=== PATIENT | male | born 1955 | race Caucasian/White ===

== ENCOUNTER 2021-08-20 15:20 | Emergency (ER) | payer SELFPAY ==
--- NOTE | ~2021-08-20 | CT_ITS ---
EXAMINATION: CT abdomen pelvis wo con EXAM DATE: 08/20/2021 18:01 INDICATION: Abdominal pain, constipation, distention, symptoms 3 weeks. TECHNIQUE: Spiral CT of the abdomen and pelvis was performed without contrast. Axial, coronal and sa gittal images of the abdomen and pelvis were reviewed. The dose-length product (DLP) for this examin ation was 780.38 mGy-cm. The exposure was tailored according to patient size (auto mA exposure contr ol), and iterative reconstruction (ASIR) was used as additional dose reduction technique. There is n o prior study for comparison. FINDINGS: The liver, adrenal glands and pancreas are unremarkable. Splenic granulomas. Gallbladder is unremarkable. No biliary obstruction. There is no nephrolithiasis or hydronephrosis. There is a cy st in each kidney, larger on the right at 2.1 cm. The prostate is unremarkable. The bladder is unre markable. There is no retroperitoneal or pelvic lymphadenopathy. There is mild scattered arteriosc lerotic disease. The appendix is normal. The stomach and small bowel are unremarkable. There is expected amount of c olonic stool. No free intraperitoneal gas. Trace pericardial effusion. Mildly dilated ascending a leo at 4.0 cm. The lung bases are unremarkable. There are no osteoblastic or osteolytic lesions id entified. Mild lumbar levoscoliosis. IMPRESSION: No acute intra-abdominal findings. Reviewed, dictated and finalized at location A. ORT DRIVER
[2021-08-20 15:27] VITALS: BP 148/92; PULSE 70; RESP 16; TEMP 35.9; O2SAT 100
[2021-08-20 15:46] LABS: Basophils Absolute Auto 0.1 K/mm3 (0.0-0.1); Basophils Percent Auto 0.6 % (0.2-1.2); Eosinophils Absolute Auto 0.2 K/mm3 (0-0.3); Eosinophils Percent Auto 2.5 % (0-4.4); Hematocrit 46.9 % (42.0-52.0); Hemoglobin 16.4 g/dL (14.0-18.0); Immature Granulocyte Absolute 0.03 K/mm3 (0.00-0.031); Immature Granulocyte Percent A 0.4 % (0-0.5); Lymphocytes Absolute Auto 2.21 K/mm3 (0.9-3.2); Lymphocytes Percent Auto 26.2 % (18.3-44.2); Mean Corpuscular Hemoglobin 32.4 pg (26-34); Mean Corpuscular Volume 92.7 fl (80-100); Mean Platelet Volume 8.9 fl (7.4-10.4); Monocytes Absolute Auto 0.8 K/mm3 (0.1-0.6); Monocytes Percent Auto 9.4 % (2.6-8.5); Neutrophils Absolute Auto 5.2 K/mm3 (1.3-6.7); Neutrophils Percent Auto 60.9 % (45.5-73.1); Platelet Count Result 230 k/mm3 (150-375); Red Blood Count 5.06 M/mm3 (4.6-6.20); Red Cell Distribution Width 12.3 % (11.5-14.5); White Blood Count 8.4 K/mm3 (4.5-10.0)
[2021-08-20 16:01] LABS: Alanine Aminotransferase 15 U/L (4-50); Albumin Level 4.7 g/dL (3.5-5.1); Alkaline Phosphatase 60 U/L (38-126); Anion Gap 9 mmol/L (8-16); Aspartate Amino Transferase 22 U/L (17-59); Bilirubin,Total 0.6 mg/dL (0.2-1.3); Blood Urea Nitrogen 12 mg/dL (9-20); Calcium 9.9 mg/dL (8.4-10.2); Carbon Dioxide 27 mmol/L (22-30); Chloride 103 mmol/L (98-107); Estimated CRCL calculation 73 ml/min; Estimated Glomerular Filt Rate > 60; Glucose 91 mg/dL (65-110); Lipase 84 U/L (23-300); Potassium 3.8 mmol/L (3.4-5.0); Sodium 139 mmol/L (137-145)
--- NOTE | 2021-08-20 17:50 | ED.GENADULT ---
HPI - General Adult General Chief complaint: Abdominal Pain Stated complaint: constipation Time Seen by Provider: 08/20/21 17:43 Source: RN notes reviewed History of Present Illness HPI narrative: Patient presents emergency department from home for abdominal pain. Patient states for the past 3 weeks has been having increasing abdominal cramping he states that he has not had a bowel movement in the past 2 weeks he states that he is full and blocked he states that the symptoms are worse when he lays down flat he denies any fever chills chest pain shortness of breath nausea or vomiting or any other symptoms he states that belly pain at times described as cramping Related Data Allergies Allergy/AdvReac Type Severity Reaction Status Date / Time No Known Allergies Allergy Verified 08/20/21 18:33 Review of Systems Review of Systems: Gen.: Denies fevers or chills ENT: Denies congestion Respiratory: Denies shortness of breath or cough CV: Denies chest pain or palpitations GI: See HPI denies burning, urgency, frequency or hematuria Musculoskeletal: Denies back pain or muscle pain Neuro: Denies numbness, tingling, weakness or focal weakness Skin: Denies rash Except as documented, all other systems reviewed and negative [facility] Past Medical History Medical History (Updated 08/20/21 @ 19:08 by Ry Lu DO) Diabetes mellitus Social History Social History (Updated 08/20/21 @ 17:51 by Ry Lu DO) Smoking status: Never smoker Exam Narrative: APPEARANCE: No acute distress, nontoxic, resting in bed HEENT: Normocephalic, atraumatic, OMM RESPIRATORY: No respiratory distress, clear to auscultation bilaterally with no rhonchi wheezing or rales CARDIOVASCULAR: RRR s murmur ABDOMINAL: Soft nondistended tender palpation right lower quadrant left lower quadrant no tenderness right upper quadrant left upper quadrant no rebound or guarding MUSCULOSKELETAl: Moves all extremities. No clubbing, cyanosis or edema. NEURO: Awake and alert. Following commands, speech normal, no focal deficits SKIN:: Warm, dry. Normal Color PSYCHIATRIC: Normal affect/mood Course Course Emergency Course: Patient states that they are feeling much better at this time. States abdominal pain has resolved. Repeat abdominal exam shows the patient's abdomen to be soft and nontender. Discussed with patient results of workup and diagnosis. Discussed need for follow-up with primary care physician, reasons to return to the emergency department in proper use of medication. Patient understands and agrees to current treatment plan discussed with patient will refer to GI for further work-up of feeling of being full and early satiety Vital Signs Vital signs: Vital Signs Temperature 96.7 F L 08/20/21 15:27 Pulse Rate 70 08/20/21 15:27 Respiratory Rate 16 08/20/21 15:27 Blood Pressure 148/92 H 08/20/21 15:27 Pulse Oximetry 100 08/20/21 15:27 Temperature 96.7 F L 08/20/21 15:27 Pulse Rate 63 08/20/21 18:26 Respiratory Rate 19 08/20/21 18:26 Blood Pressure 144/93 H 08/20/21 18:26 Pulse Oximetry 99 08/20/21 18:26 Medical Decision Making MDM Narrative Medical decision making narrative: Patient's abdomen is soft without significant pain or signs of surgical abdomen on serial exams. Lab and x-ray evaluations are reviewed and patient is felt to be a reasonable candidate for outpatient management. Patient was instructed as to limitations of x-ray and laboratory evaluation and encouraged to return to ED or primary physician for repeat exam in 12 hours if continued or worsening pain Vital Signs Vital Signs: Vital Signs Temperature 96.7 F L 08/20/21 15:27 Pulse Rate 70 08/20/21 15:27 Respiratory Rate 16 08/20/21 15:27 Blood Pressure 148/92 H 08/20/21 15:27 Pulse Oximetry 100 08/20/21 15:27 Temperature 96.7 F L 08/20/21 15:27 Pulse Rate 63 08/20/21 18:26 Respiratory Rate 19 08/20/21 18:26 Blood Pressure 14
[2021-08-20 17:53] VITALS: PULSE 61; RESP 25; O2SAT 100
[2021-08-20 17:54] VITALS: BP 153/83; PULSE 64; RESP 17; O2SAT 100
[2021-08-20 17:55] VITALS: BP 153/83; PULSE 62; RESP 17; O2SAT 100
--- NOTE | 2021-08-20 18:02 | PC.NURSE ---
Pt off floor in radiology
[2021-08-20 18:26] VITALS: BP 144/93; PULSE 63; RESP 19; O2SAT 99
[2021-08-20 18:48] LABS: Add Urine Microscopic? YES; Appearance Urine Cloudy (Clear); Bilirubin Urine Negative (Negative); Blood Urine Negative (Negative); Color Urine Yellow (Yellow); Glucose Urine UA Negative (Negative); Ketones Urine Negative (Negative); Leukocyte Esterase Ur Negative LEU/UL (Negative); Mucus Urine Rare /lpf; Nitrate Urine Negative (Negative); Protein Urine Negative (Negative); RBC Urine 0-2 /hpf (0-2); Specific Grav Ur 1.008 (1.001-1.035); Urobilinogen Urine Negative mg/dL (<2.0); WBC Urine 0-3 /hpf
[2021-08-20 20:06] VITALS: RESP 18
== END 2021-08-20 20:00 | disposition home or self-care (01) ==
PROVIDERS: Emergency Medicine; Emergency Provider Emergency Medicine; PCP Nurse Practitioner Adult Health
DX: R10.9 Unspecified abdominal pain (principal); E11.9 Type 2 diabetes mellitus without complications
CPT/HCPCS: 36415; 74176; 80053; 81001; 83690; 85025; 99284

== ENCOUNTER → 2021-11-30 01:23 | Outpatient (CLI) | payer SELFPAY ==
[2021-11-30 11:52] LABS: SARS-CoV-2 RNA PCR Negative
== END ==
PROVIDERS: Internal Medicine Gastroenterology; PCP Nurse Practitioner Adult Health; Visit Provider Internal Medicine Medical Oncology
DX: Z01.812 Encounter for preprocedural laboratory examination (principal); Z20.822 Contact with and (suspected) exposure to COVID-19
CPT/HCPCS: C9803; U0003; U0005

== ENCOUNTER 2021-12-03 00:20 | Day surgery (SDC) | payer SELFPAY ==
[2021-11-18 14:30] VITALS: BMI 22.9
[2021-12-03 08:12] VITALS: BP 132/75; PULSE 53; RESP 18; TEMP 36.2; O2SAT 99; BMI 22.6
[2021-12-03] MEDS: LACTATED RINGERS 1,000 ML 150 ML IV CONT (08:21)
--- NOTE | 2021-12-03 08:27 | WPDANESEPPF ---
Anes - Initial Pre Proc Eval Procedure: Operation Date: 12/03/21 10:15 Proposed Procedures p Esophagogastroduodenoscopy - Albin Waller MD Date/Time: 12/03/21 08:27 Surgeon: Albin Waller MD Pre Op Diagnosis: Wt Loss, Anrexia Patient Data Age: 66 Gender: M Height: 1.85 m Weight: 77.9 kg Last Vital Signs Temp 36.2 C L 12/03/21 08:12 Pulse 53 L 12/03/21 08:12 Resp 18 12/03/21 08:12 BP 132/75 12/03/21 08:12 Pulse Ox 99 12/03/21 08:12 Allergies Allergy/AdvReac Type Severity Reaction Status Date / Time No Known Allergies Allergy Verified 12/03/21 08:10 Home Medications Medication Instructions Recorded Confirmed Type escitalopram oxalate 5 mg tablet 5 mg PO DAILY 10/14/21 11/18/21 History lisinopril 5 mg tablet 5 mg PO DAILY 10/14/21 11/18/21 History simvastatin 40 mg tablet 40 mg PO DAILY 10/14/21 11/18/21 History oftvtybg-zdk-bomxz-vit K-lycop 1 tablet PO DAILY 11/18/21 11/18/21 History [One-A-Day Men's 50 Plus] omega-3 fatty acids [Fish Oil] 1 cap PO DAILY 11/18/21 11/18/21 History Patient hx anesthesia problems: none Family hx anesthesia problems: none Results Review: All pre-operative results and documents have been reviewed as part of the pre-operative evaluation. [facility] Past Medical History Medical History (Updated 12/03/21 @ 08:28 by Fortunato Nava MD) Anorexia Anxiety Diabetes mellitus Fullness after eating Hyperlipidemia Hypertension Weight loss Social History Social History Smoking status: Former smoker Alcohol intake: former Substance use: never Substance use type: does not use Living arrangements: alone Spiritual care concerns: No Anes - Eval Final PreProcedure Day of Procedure 12/03/21 08:27 Patient weight: normal Heart: regular rate and rhythm Lungs: clear to auscultation Airway: Mallampati scale class II Neurological: alert and oriented Last oral intake: >/= 8 hours ASA classification: III Emergent: no Anesthetic plan: proceed Anesthesia type and monitoring: general GIVS and standard monitoring Results Review: All pre-operative results and documents have been reviewed as part of the pre-operative evaluation. Informed Consent: The patient's anesthetic plan and its attendant risks and benefits were discussed with the patient/family/POA. Questions were solicited and answers provided to the satisfaction of the patient/family/POA.
--- NOTE | 2021-12-03 08:57 | PM.HPGS ---
History of Present Illness History of Present Illness Consent: Risks, benefits, and alternatives have been discussed and questions answered. Patient agrees to proceed with procedure. Chief complaint: Wt Loss, Anrexia Narrative: Bowen Davila is a 66 year old male with weight loss, dysphagia and upper abdominal discomfort, never had EGD. Had colonoscopy about 3 years ago. Review of Systems Constitutional: Constitutional: Denies headache(s) and Reports weight loss Eyes: Eyes: Denies blurry vision ENT: Reports Normal hearing present, Denies headache(s) and Denies neck pain Cardiovascular: Cardiovascular: Denies chest pain and Denies dyspnea Respiratory: Respiratory: Denies dyspnea Gastrointestinal: Gastrointestinal: Reports no additional gastrointestinal complaints Genitourinary: Genitourinary: Denies dysuria Musculoskeletal: Musculoskeletal: Denies neck pain Integumentary/Breasts: Skin/Breast: Denies dry skin Neurologic: Reports Normal hearing present, Denies headache(s) and Denies weakness Psychiatric: Psychiatric: Denies anxiety Endocrine: Endocrine: Denies change in body appearance Hematologic/Lymphatic: Hematologic/Lymphatic: Denies easy bleeding Allergic/Immunologic: Allergic/Immunologic: Denies urticaria PMFSH Past Medical History Medical History (Updated 12/03/21 @ 08:58 by Albin Waller MD) Anorexia Anxiety Diabetes mellitus Dysphagia Fullness after eating Hyperlipidemia Hypertension Weight loss Social History Social History Smoking status: Former smoker Alcohol intake: former Substance use: never Substance use type: does not use Living arrangements: alone Spiritual care concerns: No Meds Home Medications and Allergies Home Medications Medication Instructions Recorded Confirmed Type escitalopram oxalate 5 mg tablet 5 mg PO DAILY 10/14/21 11/18/21 History lisinopril 5 mg tablet 5 mg PO DAILY 10/14/21 11/18/21 History simvastatin 40 mg tablet 40 mg PO DAILY 10/14/21 11/18/21 History gvdlgjpc-dsj-omfhw-vit K-lycop 1 tablet PO DAILY 11/18/21 11/18/21 History [One-A-Day Men's 50 Plus] omega-3 fatty acids [Fish Oil] 1 cap PO DAILY 11/18/21 11/18/21 History Allergies Allergy/AdvReac Type Severity Reaction Status Date / Time No Known Allergies Allergy Verified 12/03/21 08:10 Vital Signs Vital Signs - 24 hr 12/03/21 08:12 Temperature 97.2 F L Pulse Rate 53 L Respiratory Rate 18 Blood Pressure 132/75 Pulse Oximetry 99 Exam Const: General: comfortable and no acute distress HENMT: General nose exam: Normal nares present Eyes: General: appearance normal, both eyes and all related structures Neck: Neck: no JVD Resp: Auscultation: clear to auscultation bilaterally Cardio: Rate: regular rate Rhythm: regular rhythm GI: Inspection: non-distended GI Palp: Yes Soft to palpation Skin: General skin exam: normal color Neuro: General: gait normal Speech: normal speech Extrem: General: normal to inspection Psych: Mental Status: mental status grossly normal Assessment and Plan Assessment and plan (1) Dysphagia: Code(s): R13.10 - Dysphagia, unspecified Status: Acute Assessment and Plan: egd with bx, will check for esophagitis, stricture, malignancy, etc (2) Weight loss: Code(s): R63.4 - Abnormal weight loss Status: Acute (3) Anorexia: Code(s): R63.0 - Anorexia Status: Acute (4) Diabetes mellitus: Code(s): E11.9 - Type 2 diabetes mellitus without complications Status: Acute
[2021-12-03 09:13] VITALS: BP 109/61; PULSE 59; RESP 20; O2SAT 99
[2021-12-03 09:23] VITALS: BP 105/51; PULSE 47; RESP 20; O2SAT 99
[2021-12-03 09:33] VITALS: BP 100/69; PULSE 52; RESP 25; O2SAT 99
== END 2021-12-03 09:44 | disposition home or self-care (01) ==
PROVIDERS: PCP Nurse Practitioner Adult Health; Visit Provider Internal Medicine Gastroenterology
PROC: 0DJ08ZZ Inspection of Upper Intestinal Tract, Via Natural or Artificial Opening Endoscopic (ICD-10-PCS; CPT 43235; principal; 2021-12-03 10:15)
DX: R13.19 Other dysphagia (principal); R63.4 Abnormal weight loss; K21.00 Gastro-esophageal reflux disease with esophagitis, without bleeding; K29.50 Unspecified chronic gastritis without bleeding; R10.11 Right upper quadrant pain; E78.5 Hyperlipidemia, unspecified; I10 Essential (primary) hypertension; Z87.891 Personal history of nicotine dependence; R63.0 Anorexia
CPT/HCPCS: 43239; 87081; 88305; J2001; J2704; J7120

== ENCOUNTER 2022-06-07 07:02 | Outpatient (CLI) | payer SELFPAY ==
--- NOTE | ~2022-06-07 | NM_ITS ---
EXAM: NM gastric emptying study DATE: 06/07/2022 11:50 INDICATION: Abdominal bloating. TECHNIQUE: A gastric emptying study was performed using the methodology of Arya MCBRIDE, et al. J Nucl Med 2007; 48:568-572. The patient was given a meal consisting of 2 scrambled eggs labeled with 1.059 mCi Tc-99m sulfur colloid, 2 slices of toast, two packages of jam, and approximately 120 mL of water . Simultaneous anterior and posterior 1-min images of the abdomen were obtained with the patient supi ne at multiple time points over a total period of 4 hours. The geometric mean of anterior and posteri or views was determined, and the percentage retention was calculated for each time point. COMPARISON: CT abdomen and pelvis 08/20/2021 FINDINGS: Gastric retention of the radiotracer-labeled meal was 42%, 13%, and 9% at the 1-hour, 2-ho ur, and 4-hour time points, respectively. With this technique, apparent rapid gastric emptying is sug gested by <30% gastric retention at 1 hour. Delayed gastric emptying is defined by gastric retention of >90% at 1 hour, >60% retention at 2 hours, or >10% retention at 4 hours. IMPRESSION: 1. Normal gastric emptying. Reviewed, dictated and finalized at location A. IMPRESSION: 1. Normal gastric emptying.
== END 2022-06-07 07:03 | disposition home or self-care (01) ==
PROVIDERS: PCP Nurse Practitioner Adult Health; Visit Provider Internal Medicine Gastroenterology
DX: R14.0 Abdominal distension (gaseous) (principal)
CPT/HCPCS: 78264; A9541

== ENCOUNTER 2022-08-16 12:23 | Inpatient (IN) | payer MEDICARE, SELFPAY ==
[2022-08-16] VITALS (31 sets, daily range): BP systolic 108–127; BP diastolic 61–95; PULSE 68–93; RESP 12–27; TEMP 36.8–37.5; O2SAT 91–100; BMI 25.0
--- NOTE | ~2022-08-16 | CT_ITS ---
EXAMINATION: CT abdomen pelvis w con DATE: 08/16/2022 16:23 INDICATION: Right upper quadrant abdominal pain, nausea and vomiting TECHNIQUE: Computed tomography (CT) of the abdomen and pelvis was performed with 100 CC Omnipaque 350 intravenous contrast. Automated exposure control and iterative reconstruction technique were employe d. Exam dose: 598.62 mGy-cm total exam DLP. COMPARISON: 08/20/2021 CT abdomen pelvis FINDINGS: There is bibasilar atelectasis. Cardiomegaly. No pericardial or pleural effusion. Small sliding hiatal hernia. There is prominent pericholecystic fat stranding and some pericholecystic fluid. There is gallbladder wall thickening. Findings are consistent with acute cholecystitis. Normal caliber of the bile ducts and pancreatic duct. No hepatic, splenic, pancreatic, and adrenal space-occupying mass lesion. Multiple calcified splenic granulomas. Occasional bilateral renal cysts measuring up to 2.3 cm on the right and 1.8 cm on the left. No urinary tract calculus or hydroureteronephrosis. The urinary bladder is unremarkable. There is mod erate prostate enlargement and multiple prostate calcifications. Normal caliber of the abdominal aorta and iliac arteries. No intraperitoneal or retroperitoneal or pe lvic mass lesion or adenopathy or ascites. As a prominent amount of fecal material in the rectosigmoid area. There is a prominent inflammatory c hange in the region of the hepatic flexure the colon associated with the acute cholecystitis. No fawn l obstruction. Probable appendectomy. No intraperitoneal free air. Small fat-containing umbilical hernia. Including skeletal structures are unremarkable; no suspicious osteolytic or osteoblastic lesions. Mod erate degenerative changes of the thoracic and lumbar spine. IMPRESSION: Acute cholecystitis with very prominent pericholecystic inflammatory change and some per icholecystic fluid, some inflammatory change affecting the adjacent hepatic flexure of the colon Bilateral renal cysts Telephoned the report on 08/16/2022 at 1634 hours to emergency room physician Dr. Hilton. Reviewed, dictated and finalized at Location A. Reviewed, dictated and finalized at location A. ISTICAL METHODS TEACHER IMPRESSION: Acute cholecystitis with very prominent pericholecystic inflammato ry change and some pericholecystic fluid, some inflammatory change affecting th e adjacent hepatic flexure of the colon Bilateral renal cysts Telephoned the report on 08/16/2022 at 1634 hours to emergency room physicia n Dr. Hilton.
--- NOTE | ~2022-08-16 | XR_ITS ---
EXAMINATION: XR chest 2V DATE: 08/17/2022 12:04 INDICATION: Leukocytosis TECHNIQUE: PA and lateral views of the chest are obtained. COMPARISON: None available FINDINGS: There are small pleural effusions. There are minimal airspace opacities of the lung bases. Cardiomegaly is noted. There is no pneumothorax. There is moderate thoracic spondylosis. IMPRESSION: 1. Small pleural effusions. 2. Minimal bibasilar airspace opacities, consistent with atelectasis versus pneumonia. Reviewed, dictated and finalized at location B. HYSICAL PROSPECTOR IMPRESSION: 1. Small pleural effusions. 2. Minimal bibasilar airspace opacities, consistent with atelectasis versus pne umonia.
--- NOTE | ~2022-08-16 | MR_ITS ---
EXAMINATION: MR MRCP wo/w con/w 3D wo ind DATE: 08/17/2022 11:57 INDICATION: Rising bilirubin with gallbladder inflammation TECHNIQUE: Magnetic resonance imaging (MRI) of the abdomen was performed without and with intravenous contrast. Sequences included coronal T2-weighted SS-FSE ARC, coronal T2-weighted FS SS-FSE, coronal T2-weighted 2D FS FIESTA, Water:Coronal LAVA-Flex, sagittal T2-weighted SS-FSE ARC, axial SSFSE ARC, axial 3D DualEcho, axial DWI B=600, axial T1-weighted LAVA, FAT:Coronal LAVA-Flex, and coronal in and opposed phase LAVA-Flex. Thick-slab T2-weighted FRFSE-XL images were obtained for magnetic resonance cholangiopancreatography (MRCP). Maximum intensity projection 3-D reconstructions of the volumetric data were created by the technologist. Postcontrast sequences included a time course of axial T1-weig hted LAVA, FAT:Coronal LAVA-Flex, coronal in and opposed phase LAVA-Flex, and Water:Coronal LAVA-Flex . COMPARISON: CT from yesterday CONTRAST: Multihance, 17 cc FINDINGS: ABDOMEN MRI: There are small pleural effusions with associated bibasilar atelectasis. Cardiomegaly is noted. The liver, spleen, pancreas, and adrenal glands are normal. The gallbladder is distended. The re appear to be sludge and stones in the gallbladder. There is gallbladder wall thickening with a mod erate amount of pericholecystic inflammation. Cysts of the kidneys measure up to 2.2 cm on the right. There are no pathologically enlarged abdominal lymph nodes. There are no dilated loops of bowel. No abnormal enhancement is present after contrast administration. ABDOMEN MRCP: There is no intrahepatic or extrahepatic biliary dilatation. No stones or stricture are identified in the common bile duct. The pancreatic duct is normal in course and caliber. IMPRESSION: 1. Acute cholecystitis. No biliary stones or stricture identified. Reviewed, dictated and finalized at location B. AL WORKER
[2022-08-16 12:40] LABS: Hematocrit 46.9 % (42.0-52.0); Hemoglobin 15.9 g/dL (14.0-18.0); Mean Corpuscular HGB Conc 33.9 g/dl (32-36); Mean Corpuscular Hemoglobin 30.5 pg (26-34); Mean Corpuscular Volume 89.8 fl (80-100); Mean Platelet Volume 9.1 fl (7.4-10.4); Platelet Count Result 218 k/mm3 (150-375); Red Blood Count 5.22 M/mm3 (4.6-6.20); Red Cell Distribution Width 12.6 % (11.5-14.5); White Blood Count 22.4 K/mm3 (4.5-10.0)
[2022-08-16 12:51] LABS: Alanine Aminotransferase 34 U/L (6-50); Albumin Level 4.8 g/dL (3.5-5.1); Alkaline Phosphatase 97 U/L (38-126); Anion Gap 13 mmol/L (8-16); Aspartate Amino Transferase 38 U/L (17-59); Bilirubin,Total 1.7 mg/dL (0.2-1.3); Blood Urea Nitrogen 11 mg/dL (9-20); Calcium 9.2 mg/dL (8.4-10.2); Carbon Dioxide 24 mmol/L (22-30); Chloride 100 mmol/L (98-107); Estimated CRCL calculation 82 ml/min; Estimated Glomerular Filt Rate > 60; Glucose 169 mg/dL (65-110); Lipase 34 U/L (23-300); Potassium 4.4 mmol/L (3.4-5.0); Sodium 137 mmol/L (137-145)
[2022-08-16 13:09] LABS: Schistocytes None Seen (NORMAL)
[2022-08-16 13:13] LABS: Add Urine Microscopic? YES; Appearance Urine Slightly Cloudy (Clear); Bilirubin Urine 2+ (Negative); Blood Urine Negative (Negative); Color Urine Orange (Yellow); Glucose Urine UA Negative (Negative); Ketones Urine 2+ mg/dL (Negative); Leukocyte Esterase Ur Negative LEU/UL (Negative); Nitrate Urine Positive (Negative); Protein Urine 2+ mg/dL (Negative); Specific Grav Ur >= 1.030 (1.001-1.035); pH Urine 5.5 (5.0-9.0)
[2022-08-16 13:21] LABS: Mucus Urine Heavy /lpf
[2022-08-16 15:21] LABS: Band Neutrophils Percent 8 % (0-6); Lymphocytes Absolute Manual 1.56 K/mm3 (1.1-4.5); Metamyelocytes Percent 1 %; Monocytes Absolute Manual 0.44 K/mm3 (0.1-0.90); Monocytes Percent Manual 2 % (3-9); Myelocytes Percent 1 %; Neutrophils Absolute Manual 19.93 K/mm3 (1.3-6.7); Neutrophils Percent Manual 81 % (46-73); Platelet Estimate Adequate (Adequate); Total Cells Counted 100
--- NOTE | 2022-08-16 15:33 | ED.ABDPAIN ---
HPI - Abdominal Pain General Chief Complaint: Abdominal Pain Stated Complaint: RUQ pain Time Seen by Provider: 08/16/22 14:59 History of Present Illness HPI narrative: Patient is a 66-year-old male with a history of GERD, hyperlipidemia presenting with abdominal pain. Patient states that he has had chronic abdominal issues for a while now. Unfortunately, over the last several days he has developed a new pain in his right upper quadrant. States that it is severe and it is difficult to take a big breath because it is so painful. States that he has also been nauseated and had an episode of emesis earlier this morning. He denies headache, fever, chest pain, shortness of breath, cough, diarrhea, dysuria, leg swelling. Patient has never had surgery on his abdomen. Related Data Home Medications Medication Instructions Recorded Confirmed simvastatin 40 mg tablet 40 mg PO DAILY 10/14/21 08/16/22 itexjojrxawj-fxb-rbbha acid-vit 1 tablet PO DAILY 11/18/21 08/16/22 K-lycop 400 mcg-20 mcg-370 mcg tablet (One-A-Day Men's 50 Plus) omega-3 fatty acids 1 cap PO DAILY 11/18/21 08/16/22 amino ac-vit L-Pn-rxkobmxb-hb9 1 tablet PO 1XD 05/19/22 08/16/22 tablet escitalopram oxalate 5 mg tablet 20 mg PO DAILY 05/19/22 08/16/22 omeprazole 40 mg capsule,delayed 40 mg PO 1XD 08/16/22 08/16/22 release Allergies Allergy/AdvReac Type Severity Reaction Status Date / Time No Known Allergies Allergy Verified 08/25/22 10:31 Review of Systems Review of Systems: All systems reviewed & are unremarkable except as noted in HPI and below PMFSH Past Medical History Medical History Anxiety Elevated liver enzymes Gastritis Hyperlipidemia Hypertension No longer on medication after weight loss. Nausea Pre-diabetes No longer on medication after weight loss. Upper abdominal pain Surgical History Surgical History History of lumbar surgery Hx laparoscopic cholecystectomy 08/18/22 Status post bilateral LASIK surgery Family History Family History Father Acute myocardial infarction Mother Diabetes mellitus Social History Social History Social History: Surrogate medical decision maker: Enedina Davila, spouse. Code status: Full code. Years smoked: 2 Smoking status: Former smoker Tobacco type: cigarettes Alcohol intake: never Substance use: never Substance use type: does not use Lack of Transportation: No Lack of Food: Never True Current Housing: I Have Housing Concerned About Future Housing: No Difficulty Paying Gas/Electric Bills: No Difficulty Paying for Meds: No Currently Unemployed: No Education: High School Diploma/GED Difficulty w/ Childcare or Family Care: No Spiritual care concerns: No Exam Narrative: GENERAL: Appears uncomfortable, lying on his left side for comfort HEAD: Normocephalic, atraumatic. EYES: PERRLA and EOMI. ENT: Nares clear, no rhinorrhea or epistaxis. Mucous membranes moist. NECK: Supple. CHEST: Clear to auscultation. No respiratory distress. HEART: Regular rate and rhythm. No murmur heard. Normal peripheral pulses. ABDOMEN: Soft, tender in right upper quadrant without guarding or rebound,, nondistended, normal active bowel sounds. EXTREMITIES: Normal range of motion. No edema. SKIN: Warm, dry, no rash. NEURO: No focal deficits. Alert and oriented x3. PSYCH: Normal mood and affect. Course Vital Signs Vital signs: Vital Signs Temperature 99.3 F 08/16/22 12:26 Pulse Rate 87 08/16/22 12:26 Respiratory Rate 18 08/16/22 12:26 Blood Pressure 111/65 08/16/22 12:26 Pulse Oximetry 99 08/16/22 12:26 Temperature 97.5 F L 08/20/22 14:28 Pulse Rate 61 08/20/22 14:28 Respiratory Rate 18 08/20/22 14:28 Bl
[2022-08-16] MEDS: MORPHINE SULFATE (*CRX) 4 MG/ML INJ IV PUSH ×2 (15:57→19:45)
[2022-08-16] MEDS: ONDANSETRON INJ 4 MG/2 ML VIAL IV PUSH (15:57)
[2022-08-16] MEDS: SODIUM CHLORIDE 0.9% IV 1,000 ML 999 ML IV CONT (15:58)
[2022-08-16] MEDS: metroNIDAZOLE 500 MG/ISO 100ML 500 MG/100 ML BAG 100 MG IVPB ×2 (17:25→21:32)
[2022-08-16 18:32] LABS: SARS-CoV-2 RNA PCR Negative
--- NOTE | 2022-08-16 19:30 | PM.IMHP ---
H&P: HPI History of Present Illness Date/Time: 08/16/22 19:30 Chief Complaint: Abdominal pain. Narrative: This is a pleasant 66-year-old male with hypertension no longer on medication after weight loss, prediabetes, hypercholesterolemia, anxiety, and benign prostatic hyperplasia who presented to the emergency department from home for evaluation of abdominal pain. He reports ongoing and intermittent abdominal discomfort, dysphagia, early satiety, and weight loss since the beginning of this year. he saw Dr. Vazquez in November of this year and had an EGD which showed gastritis. He has been taking omeprazole since that time with initial improvement in his symptoms however over the past couple of months he has once again developed dyspepsia, bloating, and early satiety. Some days are better than others and he does not see a pattern as to when the symptoms occur her, specifically he has not noticed any specific foods that make things better or worse. Last night he started to have discomfort in the periumbilical region and quickly intensified to a severe, tight pain in the right upper quadrant associated with nausea, vomiting, and subjective fever. He slept poorly and could not get comfortable last night due to the pain. He has never had pain exactly like this before. CT of the abdomen and pelvis today showed findings of acute cholecystitis with prominent pericholecystic inflammatory change and pericholecystic fluid as well as inflammatory changes affecting the adjacent hepatic flexure of the colon. He is being admitted in this setting for IV antibiotics and surgery consultation. At the time my evaluation he is feeling a bit better after receiving IV morphine. Review of Systems Review of Systems: Twelve systems were reviewed. He reports subjective fever. No cold or flu symptoms. No chest pain or shortness of breath. He denies hematemesis. No diarrhea. No melena or hematochezia. No jaundice or pruritus. UA is abnormal though he has no symptoms of UTI. Except as documented, all other systems were reviewed and are negative. [facility] Past Medical History Medical History (Updated 08/16/22 @ 22:50 by Anjana Dominique PA-C) Anxiety Gastritis Hyperlipidemia Hypertension No longer on medication after weight loss. Pre-diabetes No longer on medication after weight loss. Surgical History Surgical History History of lumbar surgery Status post bilateral LASIK surgery Family History Family History Father Acute myocardial infarction Mother Diabetes mellitus Social History Social History (Updated 08/16/22 @ 22:47 by Anjana Dominique PA-C) Social History: Surrogate medical decision maker: Enedina Davila, spouse. Code status: Full code. Years smoked: 2 Smoking status: Former smoker Tobacco type: cigarettes Alcohol intake: never Substance use: never Substance use type: does not use Lack of Transportation: No Lack of Food: Never True Current Housing: I Have Housing Concerned About Future Housing: No Difficulty Paying Gas/Electric Bills: No Difficulty Paying for Meds: No Currently Unemployed: No Education: High School Diploma/GED Difficulty w/ Childcare or Family Care: No Living arrangements: with family Occupation/Education: retired Spiritual care concerns: No Meds Home Medications and Allergies Home Medications Medication Instructions Recorded Confirmed Type simvastatin 40 mg tablet 40 mg PO DAILY 10/14/21 08/16/22 History lieeimsutamv-gtq-hbzql acid-vit 1 tablet PO DAILY 11/18/21 08/16/22 History K-lycop 400 mcg-20 mcg-370 mcg tablet (One-A-Day Men's 50 Plus) omega-3 fatty acids 1 cap PO DAILY 11/18/21 08/16/22 History amino ac-vit I-Sm-rywonqql-hb9 1 tablet PO 1XD 05/19/22 08/16/22 History tablet escitalopram oxalate 5 mg tablet 20 mg PO DAILY 05/09
--- NOTE | 2022-08-16 20:41 | ADMGEN ---
This patient, Bowen Davila, was admitted to [facility] Room 329-01. Patient/family oriented to hospital policies and general routines including ID bracelet, bed and alarms, visiting hours, pain management, procedures, bathroom and other care routines, personal items, smoking policy, room service/diet, and visiting hours. Information on how to activate the Rapid Response Team has been discussed. Patient/Family are encouraged to report perceived risks to care and to ask questions if they do not understand what they are told or what they should do.
[2022-08-16] MEDS: SODIUM CHLORIDE 0.9% IV 1,000 ML 125 ML IV CONT (21:32)
[2022-08-17] MEDS: MORPHINE SULFATE (*CRX) 2 MG/ML INJ IV PUSH ×3 (00:49→13:20)
[2022-08-17] MEDS: ONDANSETRON INJ 4 MG/2 ML VIAL IV PUSH ×2 (00:49→05:56)
[2022-08-17] MEDS: SODIUM CHLORIDE 0.9% IV 1,000 ML 125 ML IV CONT ×2 (05:55→16:47)
[2022-08-17] MEDS: metroNIDAZOLE 500 MG/ISO 100ML 500 MG/100 ML BAG 100 MG IVPB ×3 (05:57→22:17)
[2022-08-17 06:00] VITALS: BP 112/67; PULSE 77; RESP 18; TEMP 37.2; O2SAT 90
[2022-08-17 06:10] LABS: Basophils Percent Auto 0.2 % (0.2-1.2); Eosinophils Percent Auto 0.1 % (0-4.4); Hematocrit 39.2 % (42.0-52.0); Hemoglobin 13.2 g/dL (14.0-18.0); Immature Granulocyte Absolute 0.12 K/mm3 (0.00-0.031); Immature Granulocyte Percent A 0.9 % (0-0.5); Lymphocytes Absolute Auto 0.98 K/mm3 (0.9-3.2); Lymphocytes Percent Auto 7.2 % (18.3-44.2); Mean Corpuscular HGB Conc 33.7 g/dl (32-36); Mean Corpuscular Hemoglobin 31.4 pg (26-34); Mean Corpuscular Volume 93.3 fl (80-100); Mean Platelet Volume 9.4 fl (7.4-10.4); Monocytes Absolute Auto 1.1 K/mm3 (0.1-0.6); Monocytes Percent Auto 8.3 % (2.6-8.5); Neutrophils Absolute Auto 11.3 K/mm3 (1.3-6.7); Neutrophils Percent Auto 83.3 % (45.5-73.1); Platelet Count Result 152 k/mm3 (150-375); Red Cell Distribution Width 13.1 % (11.5-14.5); White Blood Count 13.6 K/mm3 (4.5-10.0)
[2022-08-17 06:22] LABS: Alanine Aminotransferase 203 U/L (6-50); Albumin Level 3.5 g/dL (3.5-5.1); Alkaline Phosphatase 143 U/L (38-126); Anion Gap 9 mmol/L (8-16); Aspartate Amino Transferase 208 U/L (17-59); Bilirubin,Total 3.1 mg/dL (0.2-1.3); Blood Urea Nitrogen 15 mg/dL (9-20); Calcium 8.3 mg/dL (8.4-10.2); Carbon Dioxide 22 mmol/L (22-30); Chloride 106 mmol/L (98-107); Estimated CRCL calculation 68 ml/min; Estimated Glomerular Filt Rate > 60; Glucose 91 mg/dL (65-110); Lipase 14 U/L (23-300); Magnesium 2.1 mg/dL (1.6-2.3); Potassium 4.2 mmol/L (3.4-5.0); Sodium 137 mmol/L (137-145)
[2022-08-17 06:38] LABS: Glucose Point of Care 100 mg/dl (65-105)
[2022-08-17 06:50] LABS: Prostate Specific Antigen 0.7 ng/mL (< OR = 4.0)
[2022-08-17 07:07] LABS: Hemoglobin A1C 5.7 % (<5.7)
--- NOTE | 2022-08-17 07:44 | PM.CNGS ---
Assessment and Plan Assessment and plan (1) Cholelithiasis with acute on chronic cholecystitis: Code(s): K80.12 - Calculus of gallbladder with acute and chronic cholecystitis without obstruction Status: Acute Assessment and Plan: I have discussed the risks, benefits, and possible complications of a laparoscopic cholecystectomy possible open possible intraoperative cholangiogram with the patient and his . I presented them with patient information main regarding the procedure and the possibility of converting to an open procedure. Possible problems including bleeding, infection, difficulty completing the procedure laparoscopically and the need to convert to open have been discussed. MRCP just completed earlier today reveals no common bile duct stones. There are evidence of small stones and sludge in the gallbladder itself which are most likely the cause of his current apparent inflammation of the gallbladder wall and surrounding tissues. since there were no common bile duct stones I have scheduled him for surgery for tomorrow afternoon. I have answered his questions and his 's. Will repeat labs tomorrow morning. I have ordered another dose of ceftriaxone. Will continue metronidazole in view of both his suspected cholecystitis and UTI. Agree with continuing IV PPI in view of his previous history of gastritis and current stress. (2) Abnormal urinalysis: Code(s): R82.90 - Unspecified abnormal findings in urine Status: Acute Assessment and Plan: Culture pending (3) Pre-diabetes: Code(s): R73.03 - Prediabetes Status: Acute Assessment and Plan: appreciate medical input regarding care perioperatively. (4) Weight loss: Code(s): R63.4 - Abnormal weight loss Status: Acute Assessment and Plan: Unknown etiology, possibly because of avoidance of eating with symptoms which may now be thought related to his gallbladder sludge/stones. (5) Diabetes mellitus: Code(s): E11.9 - Type 2 diabetes mellitus without complications Status: Acute History of Present Illness Consult details Consult date: 08/17/22 Reason for consult: abdominal pain (Right upper quadrant, CT showing cholecystitis) Requesting physician: Micheal Jo MD Narrative: This is a pleasant 66-year-old White male with? a history of hypertension, but no longer on medication after weight loss. He also has prediabetes, hypercholesterolemia, anxiety, and benign prostatic hyperplasia. He presented to the emergency department from home for evaluation of abdominal pain on the evening of 08/16/2022. He reports ongoing and intermittent abdominal discomfort, dysphagia, early satiety, and weight loss since the beginning of this year. He saw Dr. Vazquez in November of this year and had an EGD which showed gastritis. He has been taking omeprazole since that time with initial improvement in his symptoms however over the past couple of months he has once again developed dyspepsia, bloating, and early satiety. Some days are better than others and he does not see a pattern as to when the symptoms occur her, specifically he has not noticed any specific foods that make things better or worse. The night of 08/15, he started to have discomfort in the periumbilical region and quickly intensified to a severe, tight pain in the epigastrium and right upper quadrant associated with nausea, vomiting, and subjective fever.? He slept poorly and could not get comfortable that night due to the pain. He has never had pain exactly like this before. Workup in the emergency room included labs which showed an elevated white blood cell count to 22,000 normal H&H and a slightly elevated blue bilirubin at 1.7 with the rest of his liver function tests being fairly normal. A CT of the abdomen and pelvis showed findings of acute cholecystitis with prominent pericholecystic inflammatory change and pericholecystic fluid as well as infl
--- NOTE | 2022-08-17 08:02 | ECG_ITS ---
Measurements Intervals [place] Rate: 82 P: 60 OK: 179 QRS: -28 QRSD: 90 T: 12 QT: 334 QTc: 390 Interpretive Statements SINUS RHYTHM BORDERLINE T WAVE ABNORMALITY- INFERIOR LEADS BASELINE ARTIFACT- I, II, III, AVR, AVF, V3-V5 BORDERLINE ECG NO PREVIOUS ECG AVAILABLE FOR COMPARISON Electronically Signed On 08-17-2022 10:06:56 [employer]GETABLE LOADER by Dmitri Gongora D.O.
[2022-08-17] MEDS: BISACODYL 10 MG SUPPOSITORY RECTAL (09:07)
[2022-08-17 12:14] LABS: Glucose Point of Care 104 mg/dl (65-105)
[2022-08-17] MEDS: PANTOPRAZOLE SODIUM IV 40 MG VIAL IV PUSH (13:19)
[2022-08-17 14:00] VITALS: BP 109/60; PULSE 77; RESP 16; TEMP 37; O2SAT 92
--- NOTE | 2022-08-17 16:50 | WPDGICN ---
Assessment and Plan Assessment and plan (1) Acute cholecystitis: Code(s): K81.0 - Acute cholecystitis Status: Acute Assessment and Plan: mrcp reviewed c/w acute cholecystitis on medical treatment and will undergo lap nyasia- timing by surgery no need of ercp (2) Elevated liver enzymes: Code(s): R74.8 - Abnormal levels of other serum enzymes Status: Acute Assessment and Plan: from cholecystitis denies hepatitis, no alcohol use (3) Nausea: Code(s): R11.0 - Nausea Status: Acute (4) Upper abdominal pain: Code(s): R10.10 - Upper abdominal pain, unspecified Status: Acute Assessment and Plan: on pain meds now had egd in the past GI Consult Note Consult date/time: 08/17/22 16:50 Reason for consult: elevated liver enzymes, cholecystitis HPI: Bowen Davila is a 66 year old male who I have seen in the office for abdominal pain and weight loss, EGD showed gastritis (confirmed by bx) by EGD on ppi, no celiac. Work up negative for gastroparesis. He is here with few days of worsening severe upper abdominal pain with radiation to RUQ, also nausea. Workup showed an elevated white blood cell count to 22,000, bilirubin at 1.7 with elevated transaminases 200's. A CT of the abdomen and pelvis showed findings of acute cholecystitis with prominent pericholecystic inflammatory change and pericholecystic fluid, MRCP confirmed cholecystitis, no stones in bile duct. Review of Systems Review of Systems: All systems reviewed & are unremarkable except as noted in HPI and below (HPI) Constitutional: Constitutional: Reports as per HPI, Denies chills and Denies fever(s) Eyes: Eyes: Reports no additional eye complaints ENT: Reports Normal hearing present and Denies dizziness Cardiovascular: Cardiovascular: Reports no additional cardiovascular complaints and Denies chest pain Respiratory: Respiratory: Reports no additional respiratory complaints Gastrointestinal: Gastrointestinal: Reports no additional gastrointestinal complaints, Denies abdominal pain and Denies bloating Comments: history of early satiety, weight loss and gastritis by EGD. Genitourinary: Genitourinary: Denies hematuria Comments: Musculoskeletal: Musculoskeletal: Denies back pain Integumentary/Breasts: Skin/Breast: Reports system reviewed and no additional complaints, except as docu Neurologic: Reports Normal hearing present, Denies Abnormal speech present and Denies confusion Psychiatric: Psychiatric: Reports no additional psychiatric complaints and Denies confusion Endocrine: Endocrine: Reports no additional endocrine complaints Hematologic/Lymphatic: Hematologic/Lymphatic: Denies easy bleeding and Denies easy bruising Allergic/Immunologic: Allergic/Immunologic: Reports no additional allergic/immunologic complaints [facility] Past Medical History Medical History (Updated 08/17/22 @ 16:54 by Albin Waller MD) Anxiety Elevated liver enzymes Gastritis Hyperlipidemia Hypertension No longer on medication after weight loss. Nausea Pre-diabetes No longer on medication after weight loss. Upper abdominal pain Surgical History Surgical History History of lumbar surgery Status post bilateral LASIK surgery Family History Family History Father Acute myocardial infarction Mother Diabetes mellitus Social History Social History Social History: Surrogate medical decision maker: Enedina Prietoclementinetorey, spouse. Code status: Full code. Years smoked: 2 Smoking status: Former smoker Tobacco type: cigarettes Alcohol intake: never Substance use: never Substance use type: does not use Lack of Transportation: No Lack of Food: Never True Current Housing: I Have Housing Concerned About Future Ricardo
[2022-08-17 18:12] LABS: Glucose Point of Care 110 mg/dl (65-105)
--- NOTE | 2022-08-17 18:52 | PM.IMPN ---
Progress Note: A&P Assessment and Plan (1) Acute cholecystitis: Code(s): K81.0 - Acute cholecystitis Status: Acute Assessment and Plan: continue Flagyl, IV fluids, NPO appreciate general surgery consultation MRCP showed acute cholecystitis, no need for ERCP, will likely undergo cholecystectomy (2) Abnormal urinalysis: Code(s): R82.90 - Unspecified abnormal findings in urine Status: Acute Assessment and Plan: abnormal urinalysis, continue Rocephin, no dysuria (3) Pre-diabetes: Code(s): R73.03 - Prediabetes Status: Acute Assessment and Plan: A1c is 5.7 (4) Gastritis: Code(s): K29.70 - Gastritis, unspecified, without bleeding Status: Acute Assessment and Plan: continue PPI Plan The patient presented emergency department today for evaluation of right upper quadrant pain associated with subjective fever, nausea, and vomiting since last evening and CT of the abdomen and pelvis shows findings of acute cholecystitis. Dr. Whaley was consulted by the ED physician and he recommends antibiotics, IV fluid rehydration, and supportive care. The patient will be NPO after midnight for possible surgery tomorrow. His urine is abnormal however he denies symptoms of urinary tract infection. Urine culture has been ordered, however. He is prediabetic and was on metformin for a time however due to his GI symptoms and weight loss that was discontinued. Random glucose today is 169 thus we will initiate sliding scale insulin and check hemoglobin A1c. He is on omeprazole at home we will change that to IV Protonix while NPO. Subjective Date/time seen: 08/17/22 18:52 Interval history: No overnight events noted. No chest pain or shortness of breath. No nausea, vomiting or diarrhea. No fevers or chills. Review of Systems Review of Systems: 12 point review of systems was assessed and was negative except as noted in the HPI Exam Narrative: General: No acute distress, alert and oriented per baseline HEENT: Atraumatic, normocephalic, mucous membranes moist CV: Regular rate and rhythm, S1, S2 Lungs: Clear to auscultation bilaterally, no rales or crackles noted, no wheezes, good air entry Abdomen: Soft, nontender, nondistended Extremities: Normal to inspection Skin: No rashes noted, no lesions or wounds seen Psych: Euthymic, normal affect Objective Data Vital Signs Vital Signs: Vital Signs - 24 hr 08/16/22 19:00 08/16/22 19:01 08/16/22 19:15 Temperature Pulse Rate 73 73 75 Respiratory Rate 25 H 26 H 24 H Blood Pressure 108/61 Pulse Oximetry 96 98 92 Oxygen Delivery 08/16/22 19:30 08/16/22 19:51 08/16/22 22:00 Temperature 98.3 F Pulse Rate 71 81 78 Respiratory Rate 20 20 21 H Blood Pressure 110/62 118/66 109/65 Pulse Oximetry 91 92 91 Oxygen Delivery 08/17/22 06:00 08/17/22 08:00 08/17/22 14:00 Temperature 98.9 F 98.6 F Pulse Rate 77 77 Respiratory Rate 18 16 Blood Pressure 112/67 109/60 Pulse Oximetry 90 92 Oxygen Delivery Room Air Intake/Output Intake/Output: Intake & Output 08/14/22 08/15/22 08/16/22 08/17/22 23:59 23:59 23:59 23:59 Intake Total 1250 2200 Output Total 300 Balance 1250 1900 Meds/Results Medications: Active Medications Generic Name Dose Route Start Last Admin Trade Name Freq PRN Reason Stop Dose Admin Dextrose 12.5 gm 08/16/22 22:52 Dextrose 50% 25 Gm/50 Ml Syringe IV PUSH PRN PRN Hypoglycemia Protocol Glucagon 1 mg 08/16/22 22:52 Glucagon For Inj 1 Mg Vial IM PRN PRN Hypoglycemia Protocol Glucose 15 gm 08/16/22 22:52 Glucose Oral Gel 15 Gm Of Glucse In 37.5 Gm Tube PO PRN PRN Hypoglycemia Protocol Sodium Chloride 1,000 mls @ 125 mls/hr 08/16/22 17:45 08/17/22 18:47 Normal Saline Iv IV CONT Not Given .Q8H PABLO Metronidazole 500 mg in 100 mls @ 100 mls/hr 08/16/22 22:00 08/17/22 14:19
[2022-08-17 20:34] VITALS: O2SAT 97
[2022-08-17] MEDS: MORPHINE SULFATE (*CRX) 4 MG/ML INJ IV PUSH (20:34)
[2022-08-17 21:40] VITALS: O2SAT 86
[2022-08-17 22:00] VITALS: BP 144/70; PULSE 87; RESP 24; TEMP 37.2; O2SAT 94; O2SAT 97
[2022-08-17] MEDS: FUROSEMIDE INJ 40 MG/4 ML VIAL 20 MG IV PUSH (23:18)
[2022-08-18] VITALS (15 sets, daily range): BP systolic 101–184; BP diastolic 55–73; PULSE 62–114; RESP 15–23; TEMP 36.3–36.8; O2SAT 91–99
[2022-08-18] MEDS: metroNIDAZOLE 500 MG/ISO 100ML 500 MG/100 ML BAG 100 MG IVPB ×2 (05:30→13:45)
[2022-08-18] MEDS: hydrALAZINE HCL 20 MG/ML VIAL 10 MG IV PUSH (06:07)
--- NOTE | 2022-08-18 06:41 | PC.NURSE ---
At 23:30 patient had episode of hypoxia with a O2 level of 82. Was put on 3 Liters of oxygen, then was raised up to 97 percent oxygen level.
--- NOTE | 2022-08-18 06:44 | PC.NURSE ---
At 5:50 Patient had elevated blood pressure of 184/92, hydralazine was ordered and given.
[2022-08-18 06:46] LABS: Alanine Aminotransferase 114 U/L (6-50); Albumin Level 3.4 g/dL (3.5-5.1); Alkaline Phosphatase 137 U/L (38-126); Anion Gap 11 mmol/L (8-16); Aspartate Amino Transferase 65 U/L (17-59); Bilirubin,Total 1.4 mg/dL (0.2-1.3); Blood Urea Nitrogen 16 mg/dL (9-20); Calcium 8.1 mg/dL (8.4-10.2); Carbon Dioxide 22 mmol/L (22-30); Chloride 105 mmol/L (98-107); Estimated CRCL calculation 68 ml/min; Estimated Glomerular Filt Rate > 60; Glucose 89 mg/dL (65-110); Potassium 3.6 mmol/L (3.4-5.0); Sodium 138 mmol/L (137-145)
[2022-08-18 06:55] LABS: Basophils Percent Auto 0.2 % (0.2-1.2); Hematocrit 37.5 % (42.0-52.0); Hemoglobin 12.6 g/dL (14.0-18.0); Immature Granulocyte Absolute 0.06 K/mm3 (0.00-0.031); Immature Granulocyte Percent A 0.6 % (0-0.5); Lymphocytes Absolute Auto 0.81 K/mm3 (0.9-3.2); Lymphocytes Percent Auto 7.5 % (18.3-44.2); Mean Corpuscular HGB Conc 33.6 g/dl (32-36); Mean Corpuscular Hemoglobin 30.7 pg (26-34); Mean Corpuscular Volume 91.5 fl (80-100); Mean Platelet Volume 9.9 fl (7.4-10.4); Monocytes Absolute Auto 0.7 K/mm3 (0.1-0.6); Monocytes Percent Auto 6.4 % (2.6-8.5); Neutrophils Absolute Auto 9.2 K/mm3 (1.3-6.7); Neutrophils Percent Auto 85.3 % (45.5-73.1); Platelet Count Result 173 k/mm3 (150-375); Red Cell Distribution Width 13.1 % (11.5-14.5); White Blood Count 10.8 K/mm3 (4.5-10.0)
[2022-08-18 07:51] LABS: Glucose Point of Care 88 mg/dl (65-105)
[2022-08-18] MEDS: PANTOPRAZOLE SODIUM IV 40 MG VIAL IV PUSH (09:00)
[2022-08-18] MEDS: MORPHINE SULFATE (*CRX) 4 MG/ML INJ IV PUSH (09:06)
[2022-08-18] MEDS: SODIUM CHLORIDE 0.9% IV 1,000 ML 75 ML IV CONT (09:06)
--- NOTE | 2022-08-18 09:12 | PM.IMPN ---
Progress Note: A&P Assessment and Plan (1) Acute cholecystitis: Code(s): K81.0 - Acute cholecystitis Status: Acute Assessment and Plan: Continue Flagyl, IV fluids, NPO Appreciate general surgery consultation MRCP showed acute cholecystitis, no need for ERCP, cholecystectomy planned for today (2) Abnormal urinalysis: Code(s): R82.90 - Unspecified abnormal findings in urine Status: Acute Assessment and Plan: Abnormal urinalysis, continue Rocephin, no dysuria Follow-up urine culture (3) Pre-diabetes: Code(s): R73.03 - Prediabetes Status: Acute Assessment and Plan: A1c is 5.7 (4) Gastritis: Code(s): K29.70 - Gastritis, unspecified, without bleeding Status: Acute Assessment and Plan: Continue PPI Plan DVT prophylaxis with SCDs GI prophylaxis with PPI Code status full code Subjective Date/time seen: 08/18/22 09:12 Interval history: Going to the OR today for lap nyasia. No overnight events noted. No chest pain or shortness of breath. No nausea, vomiting or diarrhea. No fevers or chills. Continued abdominal pain noted. Review of Systems Review of Systems: 12 point review of systems was assessed and was negative except as noted in the HPI Exam Narrative: General: No acute distress, alert and oriented per baseline HEENT: Atraumatic, normocephalic, mucous membranes moist CV: Regular rate and rhythm, S1, S2 Lungs: Clear to auscultation bilaterally, no rales or crackles noted, no wheezes, good air entry Abdomen: Soft, nontender, nondistended Extremities: Normal to inspection Skin: No rashes noted, no lesions or wounds seen Psych: Euthymic, normal affect Objective Data Vital Signs Vital Signs: Vital Signs - 24 hr 08/17/22 14:00 08/17/22 21:40 08/17/22 22:00 Temperature 98.6 F Pulse Rate 77 Respiratory Rate 16 Blood Pressure 109/60 Pulse Oximetry 92 86 L 94 Oxygen Delivery Room Air Nasal Cannula Oxygen Flow Rate 3 08/17/22 20:34 08/17/22 22:00 08/18/22 06:00 Temperature 98.9 F 97.4 F L Pulse Rate 87 67 Respiratory Rate 24 H 20 Blood Pressure 144/70 H 184/73 H Pulse Oximetry 97 97 96 Oxygen Delivery Nasal Cannula Oxygen Flow Rate 3 Intake/Output Intake/Output: Intake & Output 08/15/22 08/16/22 08/17/22 08/18/22 23:59 23:59 23:59 23:59 Intake Total 1250 2300 250 Output Total 300 1025 Balance 1250 1999 - Meds/Results Medications: Active Medications Generic Name Dose Route Start Last Admin Trade Name Freq PRN Reason Stop Dose Admin Albuterol 2.5 mg 08/17/22 22:09 Albuterol Sulfate Neb 2.5 Mg/3 Ml Inh INHALATION Q4HRT PRN Shortness Of Breath Dextrose 12.5 gm 08/16/22 22:52 Dextrose 50% 25 Gm/50 Ml Syringe IV PUSH PRN PRN Hypoglycemia Protocol Glucagon 1 mg 08/16/22 22:52 Glucagon For Inj 1 Mg Vial IM PRN PRN Hypoglycemia Protocol Glucose 15 gm 08/16/22 22:52 Glucose Oral Gel 15 Gm Of Glucse In 37.5 Gm Tube PO PRN PRN Hypoglycemia Protocol Hydralazine HCl 10 mg 08/18/22 05:57 08/18/22 06:07 Hydralazine Hcl 20 Mg/Ml Vial IV PUSH 10 mg Q6H PRN Administration Blood Pressure - High Metronidazole 500 mg in 100 mls @ 100 mls/hr 08/16/22 22:00 08/18/22 05:30 Flagyl 500 Mg/Iso Soln 100 Ml IVPB 100 mls/hr Q8H PABLO Administration Dextrose 1,000 mls @ 100 mls/hr 08/16/22 22:52 Dextrose 5% 1,000 Ml IVPB PRN PRN Hypoglycemia Protocol Ceftriaxone Sodium/Dextrose 1 gm in 50 mls @ 100 mls/hr 08/17/22 16:00 08/17/22 18:03 Rocephin 1 Gm/D5w 50 Ml IVPB 100 mls/hr Q24H PABLO Administration Sodium Chloride 1,000 mls @ 75 mls/hr 08/17/22 23:30 08/18/22 09:06 Normal Saline Iv IV CONT 75 mls/hr .[id number] PABLO Administration Lactated Ringer's 1,000 mls @ 30 mls/hr 08/18/22 08:05 Lr - Lactated Ringers Iv IV CONT .Q24H PABLO Insulin
--- NOTE | 2022-08-18 10:18 | WPDHPUPDATE1 ---
History and Physical Update Update Date/Time: 08/18/22 10:18 History and Physical has been reviewed, including an updated exam of the patient. There are changes in the patient's condition. Overnight the patient's white count has come down some. He also had an episode of some shortness of breath with pulse ox dipping into the 80s. This improved with supplemental oxygen that has now been weaned down to 1 L per nasal cannula. Patient continues on IV antibiotics. Risks, benefits, and alternatives have been discussed and questions answered. Patient agrees to proceed with procedure.
[2022-08-18] MEDS: BISACODYL 10 MG SUPPOSITORY RECTAL (11:13)
[2022-08-18 11:29] LABS: Glucose Point of Care 79 mg/dl (65-105)
[2022-08-18] MEDS: CHLORHEXIDINE GLUCONATE 4% SOL 120 ML BTL 1 APPLIC TOPICAL (12:30)
--- NOTE | 2022-08-18 13:24 | WPDANESEPPF ---
Anes - Initial Pre Proc Eval Procedure: Operation Date: 08/18/22 13:30 Proposed Procedures p Laparoscopic Cholecystectomy, Possible Intraoperative Cholangiogram, Possible Open - Aric Whaley MD Date/Time: 08/18/22 13:24 Surgeon: Micheal Jo MD Pre Op Diagnosis: Acute Cholecystitis Patient Data Age: 66 Gender: M Height: 1.85 m Weight: 88 kg Last Vital Signs Temp 36.7 C 08/18/22 10:24 Pulse 71 08/18/22 10:24 Resp 16 08/18/22 10:24 BP 114/59 L 08/18/22 10:24 Pulse Ox 96 08/18/22 10:24 O2 Del Method Nasal Cannula 08/18/22 09:13 O2 Flow Rate 1 08/18/22 09:13 Allergies Allergy/AdvReac Type Severity Reaction Status Date / Time No Known Allergies Allergy Verified 08/16/22 12:32 Home Medications Medication Instructions Recorded Confirmed Type simvastatin 40 mg tablet 40 mg PO DAILY 10/14/21 08/16/22 History ahhyxhcgyagw-wrd-ysolp acid-vit 1 tablet PO DAILY 11/18/21 08/16/22 History K-lycop 400 mcg-20 mcg-370 mcg tablet (One-A-Day Men's 50 Plus) omega-3 fatty acids 1 cap PO DAILY 11/18/21 08/16/22 History amino ac-vit C-Ed-rpkrxift-hb9 1 tablet PO 1XD 05/19/22 08/16/22 History tablet escitalopram oxalate 5 mg tablet 20 mg PO DAILY 05/19/22 08/16/22 History omeprazole 40 mg capsule,delayed 40 mg PO 1XD 08/16/22 08/16/22 History release Laboratory Tests 08/17/22 08/18/22 08/18/22 18:07 05:52 05:52 WBC 10.8 K/mm3 H K/mm3 (4.5-10.0) RBC 4.10 M/mm3 L M/mm3 (4.6-6.20) Hgb 12.6 g/dL L g/dL (14.0-18.0) Hct 37.5 % L % (42.0-52.0) MCV 91.5 fl fl (80-100) MCH 30.7 pg pg (26-34) MCHC 33.6 g/dl g/dl (32-36) RDW 13.1 % % (11.5-14.5) Plt Count 173 k/mm3 k/mm3 (150-375) MPV 9.9 fl fl (7.4-10.4) Immature Gran % (Auto) 0.6 % H % (0-0.5) Neut % (Auto) 85.3 % H % (45.5-73.1) Lymph % (Auto) 7.5 % L % (18.3-44.2) Tucker % (Auto) 6.4 % % (2.6-8.5) Eos % (Auto) 0.0 % % (0-4.4) Baso % (Auto) 0.2 % % (0.2-1.2) Lymph # (Auto) 0.81 K/mm3 L K/mm3 (0.9-3.2) Tucker # (Auto) 0.7 K/mm3 H K/mm3 (0.1-0.6) Eos # (Auto) 0.0 K/mm3 K/mm3 (0-0.3) Baso # (Auto) 0.0 K/mm3 K/mm3 (0.0-0.1) Abs Immat Gran (auto) 0.06 K/mm3 H K/mm3 (0.00-0.031) Absolute Neuts (auto) 9.2 K/mm3 H K/mm3 (1.3-6.7) Absolute Nucleated RBC 0.0 K/mm3 K/mm3 (0.0-0.012) Nucleated RBC % 0.0 % % (0.0-0.2) Sodium 138 mmol/L mmol/L (137-145) Potassium 3.6 mmol/L mmol/L (3.4-5.0) Chloride 105 mmol/L mmol/L (98-107) Carbon Dioxide 22 mmol/L mmol/L (22-30) Anion Gap 11 mmol/L mmol/L (8-16) BUN 16 mg/dL mg/dL (9-20) Creatinine 1.10 mg/dL mg/dL (0.7-1.3) Estim Creat Clear Calc 68 ml/min ml/min Estimated GFR > 60 (59 - ) Glucose 89 mg/dL mg/dL (65-110) POC Capillary Glucose 110 mg/dl H mg/dl (65-105) Calcium 8.1 mg/dL L mg/dL (8.4-10.2) Total Bilirubin 1.4 mg/dL H mg/dL (0.2-1.3) Direct Bilirubin 0.0 mg/dL mg/dL (0-0.3) AST 65 U/L H U/L (17-59) ALT 114 U/L H U/L (6-50) Alkaline Phosphatase 137 U/L H U/L (38-126) Total Protein 7.0 g/dL g/dL (6.3-8.2) Albumin 3.4 g/dL L g/dL (3.5-5.1) Blood Type Antibody Screen 08/18/22 08/18/22 08/18/22 05:52 07:42 11:27 WBC RBC Hgb Hct MCV MCH MCHC RDW Plt Count MPV Immature Gran % (Auto) Neut % (Auto) Lymph % (Auto) Tucker % (Auto) Eos % (Auto) Baso % (Auto) Lymph # (A
[2022-08-18] MEDS: ACETAMINOPHEN 500 MG TABLET 1000 MG PO (13:33)
[2022-08-18] MEDS: LACTATED RINGERS 1,000 ML 30 ML IV CONT ×2 (13:33→16:51)
[2022-08-18] MEDS: KETOROLAC 15 MG/ML VIAL (*BKC) IV PUSH (13:33)
--- NOTE | 2022-08-18 13:43 | PC.NURSE ---
To OR per bed, IV intact. Report given to RIAZ Harris.
[2022-08-18] MEDS: BUPIVACAINE/EPINEPHRINE 0.25% 50 ML VIAL 30 ML INFILTRATE (16:39)
--- NOTE | 2022-08-18 16:51 | W.PM.PROC2 ---
Procedure Note - Detailed Date of Procedure 08/18/22 Pre-op Diagnosis 1. Acute on chronic Cholecystitis with cholelithiasis 2) small umbilical hernia Post-op Diagnosis Other (1. Acute on chronic cholecystitis with cholelithiasis and probable perforation of the gallbladder with peripad ache abscess2. Small umbilical hernia) Procedure Performed Laproscopic Cholecystectomy Surgeon Aric Whaley MD [facility], OR 1st assist Anesthesia General Indications See admission history and physical. Patient had severe episode of epigastric and right upper quadrant pain. CT scan shows significant inflammation of the gallbladder wall and some surrounding pericholecystic fluid with inflammatory changes of the wall of the colon near the gallbladder. Because this antibiotics were started and MRCP was completed. Because the patient's bilirubin was up we wanted to be sure there were not common bile duct stones. None were seen and this also confirmed that there was sludge and small stones in the neck of the gallbladder probably causing complete obstruction. Therefore, we decided to proceed with operative intervention to remove the gallbladder and drain any significant fluid. Findings The omentum was completely covering the gallbladder and stuck to the anterior abdominal wall walling off the right upper quadrant lateral side of the right lobe of the liver. When this was could gently taken down there was purulent exudate and peritoneal inflammation with peritoneal exudate between the gallbladder omentum and the entire lateral surface of the right lobe of the liver. Some of this fluid was suctioned up and 20 cc sent for Gram stain aerobic and anaerobic C&S. I suspect there was a perforation of the gallbladder leading to this problem. However, it was walled off anterior lateral to the right lobe of the liver and did not give gross widespread peritonitis. Description of Procedure Patient was seen preoperatively in the holding area and risks, benefits and alternatives confirmed. Patient was taken to the operating room and general anesthesia was induced. A time out was then preformed with the surgery team confirming patient and site of surgery. The abdomen was prepped and draped in the usual sterile fashion. Incision was made just below the umbilicus with an 15 blade knife. Because of his known umbilical hernia I made this a curvilinear incision within the creases of the lower umbilicus. We then elevated skin and subcutaneous flaps over the fascia in both directions and carefully entered the hernia sac which was about 12 mm in diameter. I placed 2 stay sutures of O- Vicryl on either side of the mid-line fascia beneath the umbilicus and was then able to slide in the Martin cannula through the fascial defect into the peritoneum. The stay sutures were used to hold the Martin cannula in place as we worked. First under low flow and then under high flow the abdomen was insufflated with carbon dioxide never exceeding a pressure of 14mm of Hg. Three 5 mm trocars were then introduced under direct vision. The following trocars were introduced under direct vision: a 12 mm in the epigastrium and two 5 mm trocars along the right costal margin laterally in the subcostal area. There were significant omental adhesions covering the gallbladder, the anterior lateral edge of the right lobe of the liver, and sealing off a pocket of infection anterior and to the lateral side of the right lobe of the liver with adhesions that were inflammatory to the anterior peritoneum along the entire right side of the abdomen from the falciform ligament laterally. When these were taken down there was a cavity containing brownish cloudy fluid and apparent inflammatory exudate on the entire peritoneal surface lateral wall opposite the lateral side of the right lobe of the liver. These were taken down with blunt and sharp dissection using some Bovie cautery for hemostasis and laparoscopic [place]
[2022-08-18 17:07] LABS: Glucose Point of Care 119 mg/dl (65-105)
--- NOTE | 2022-08-18 18:37 | PCNEURO ---
Returned from OR at 1810 per bed. Report received from Pari, RIAZ.
[2022-08-18 19:33] LABS: Glucose Point of Care 126 mg/dl (65-105)
[2022-08-18] MEDS: metroNIDAZOLE 500 MG/ISO 100ML 500 MG/100 ML BAG 125 MG IVPB (21:18)
[2022-08-18] MEDS: SENNA/DOCUSATE SODIUM TABLET 2 TAB PO (21:19)
[2022-08-19 03:40] VITALS: BP 116/55; PULSE 52; RESP 17; TEMP 36.1; O2SAT 95
[2022-08-19] MEDS: metroNIDAZOLE 500 MG/ISO 100ML 500 MG/100 ML BAG 125 MG IVPB (05:22)
[2022-08-19] MEDS: SODIUM CHLORIDE 0.9% IV 1,000 ML 75 ML IV CONT (05:23)
[2022-08-19 06:34] LABS: Hematocrit 37.1 % (42.0-52.0); Hemoglobin 12.2 g/dL (14.0-18.0); Mean Corpuscular HGB Conc 32.9 g/dl (32-36); Mean Corpuscular Hemoglobin 30.5 pg (26-34); Mean Corpuscular Volume 92.8 fl (80-100); Platelet Count Result 193 k/mm3 (150-375); Red Cell Distribution Width 13.2 % (11.5-14.5); White Blood Count 9.5 K/mm3 (4.5-10.0)
[2022-08-19 06:58] LABS: Alanine Aminotransferase 76 U/L (6-50); Alkaline Phosphatase 132 U/L (38-126); Anion Gap 10 mmol/L (8-16); Aspartate Amino Transferase 65 U/L (17-59); Bilirubin,Total 0.7 mg/dL (0.2-1.3); Blood Urea Nitrogen 20 mg/dL (9-20); Calcium 7.7 mg/dL (8.4-10.2); Carbon Dioxide 21 mmol/L (22-30); Chloride 106 mmol/L (98-107); Estimated CRCL calculation 82 ml/min; Estimated Glomerular Filt Rate > 60; Glucose 146 mg/dL (65-110); Potassium 3.6 mmol/L (3.4-5.0); Sodium 137 mmol/L (137-145)
--- NOTE | 2022-08-19 07:35 | WPDANESPN ---
Anes - Prog Note Post-Op Date/Time: 08/19/22 07:35 Cardiovascular status: normal Respiratory status: normal Airway patency: baseline Mental status: baseline Post-Op hydration status: normal Vital Signs: Last Vital Signs Temp 97 F L 08/19/22 03:40 Pulse 52 L 08/19/22 03:40 Resp 17 08/19/22 03:40 BP 116/55 L 08/19/22 03:40 Pulse Ox 95 08/19/22 03:40 O2 Del Method Room Air 08/18/22 20:30 O2 Flow Rate 8 08/18/22 17:20 Pain Score (VAS): 0/10 I/O: Intake & Output 08/18/22 08/18/22 08/19/22 15:59 23:59 07:59 Intake Total 100 1300 100 Output Total 1082 530 Balance 100 218 -430 Laboratory Tests 08/19/22 05:47 08/19/22 05:47 08/18/22 08/18/22 08/18/22 07:42 11:27 17:02 WBC RBC Hgb Hct MCV MCH MCHC RDW Plt Count MPV Sodium Potassium Chloride Carbon Dioxide Anion Gap BUN Creatinine Estim Creat Clear Calc Estimated GFR Glucose POC Capillary Glucose 88 79 119 H Calcium Total Bilirubin Direct Bilirubin AST ALT Alkaline Phosphatase Total Protein Albumin 08/18/22 08/19/22 08/19/22 19:22 05:47 05:47 WBC 9.5 RBC 4.00 L Hgb 12.2 L Hct 37.1 L MCV 92.8 MCH 30.5 MCHC 32.9 RDW 13.2 Plt Count 193 MPV 10.0 Sodium 137 Potassium 3.6 Chloride 106 Carbon Dioxide 21 L Anion Gap 10 BUN 20 Creatinine 0.90 Estim Creat Clear Calc 82 Estimated GFR > 60 Glucose 146 H POC Capillary Glucose 126 H Calcium 7.7 L Total Bilirubin 0.7 Direct Bilirubin 0.0 AST 65 H ALT 76 H Alkaline Phosphatase 132 H Total Protein 6.0 L Albumin 3.0 L Microbiology 08/17/22 20:52 Unspecified Urine Urine Culture - Final Post-procedural complaints: none Patient Feedback: Patient satisfied with anesthetic care.
[2022-08-19 07:40] VITALS: BP 124/50; PULSE 50; RESP 16; TEMP 36.3; O2SAT 98
[2022-08-19 08:51] LABS: Glucose Point of Care 140 mg/dl (65-105)
--- NOTE | 2022-08-19 08:51 | PM.PNGS ---
Progress Note: A&P Assessment and Plan (1) Cholelithiasis with acute on chronic cholecystitis: Code(s): K80.12 - Calculus of gallbladder with acute and chronic cholecystitis without obstruction Status: Acute Assessment and Plan: Doing well postop day 1. Will begin advancing diet. Will continue IV antibiotics in view of suspected perforation and walled off abscess in the right upper quadrant. (2) Cholecystitis with perforation of gallbladder: Code(s): K82.A2 - Perforation of gallbladder in cholecystitis Status: Acute Assessment and Plan: The patient had several areas of necrosis of his gallbladder and a walled off pocket of infection superior & lateral to the gallbladder and right lobe of the liver. Drain now in place draining that area and producing serosanguineous fluid. Would like to give another 24 hours of IV antibiotics and then probably home on 5 days of oral antibiotics. Will plan to leave drain in place and remove in the office. (3) Abnormal urinalysis: Code(s): R82.90 - Unspecified abnormal findings in urine Status: Acute Assessment and Plan: Culture apparently so far negative. (4) Pre-diabetes: Code(s): R73.03 - Prediabetes Status: Acute Assessment and Plan: fingerstick still 149 this morning while NPO. Subjective Subjective Date/Time Seen: 08/19/22 08:51 Post Op day: 1 ( Significantly improved compared to preop) Patient reports: feels better, flatus, no bowel movement and other ( States I am able to breathe better ) Interval history: some memory issues in that he could not remember when he last took pain medication. Planning to try clear liquid diet so will try to switch to oral pain medications if he needs something next. Review of Systems Review of Systems: All systems reviewed & are unremarkable except as noted in HPI and below Constitutional: Constitutional: Reports as per HPI, Denies chills and Denies fever(s) Cardiovascular: Cardiovascular: Denies chest pain and Denies dyspnea Respiratory: Respiratory: Reports no additional respiratory complaints and Denies dyspnea Gastrointestinal: Gastrointestinal: Reports as per HPI and Denies bloating Musculoskeletal: Musculoskeletal: Reports no additional musculoskeletal complaints Psychiatric: Psychiatric: Denies anxiety Exam Const: General: cooperative, comfortable, alert and awake Orientation/consciousness: oriented to person and oriented to place HENMT: Head: normal to inspection Mouth: Yes moist mucous membranes Eyes: Sclera: sclerae normal Pupils: Equal, round and reactive pupils present Neck: Neck: normal visual inspection and no JVD Chest: Chest palpation & inspection: normal inspection of the chest Resp: Effort & Inspection: normal respiratory effort Cardio: Jugular venous distension: no JVD Rate: regular rate GI: Inspection: incision ( clean and dry) and other ( SANDRA drain draining serosanguineous fluid.) Auscultation: normal bowel sounds Other: no erythema or signs of infection at other port sites. Neuro: Cranial nerves: Yes Equal, round and reactive pupils present Objective Data Vital Signs Vital Signs: Vital Signs - 24 hr 08/18/22 09:10 08/18/22 09:13 08/18/22 10:24 Temperature 36.7 C Pulse Rate 71 Respiratory Rate 16 Blood Pressure 114/59 L Pulse Oximetry 99 98 96 Oxygen Delivery Nasal Cannula Nasal Cannula Oxygen Flow Rate 3 1 08/18/22 13:30 08/18/22 16:51 08/18/22 17:05 Temperature 36.8 C 36.7 C Pulse Rate 75 73 66 Respiratory Rate 16 15 17 Blood Pressure 132/72 101/55 L 101/60 Pulse Oximetry 96 95 96 Oxygen Delivery Room Air Simple Face Mask Simple Face Mask Oxygen Flow Rate 8 8 08/18/22 17:20 08/18/22 17:35 08/18/22 17:50 Temperature Pulse Rate 68 70 65 Respiratory Rate 23 H 22 H 21 H Blood Pressure 109/61 111/61 108/60 Pulse Oximetry 99 93 92 Oxygen Delivery Simple Face Mask Room Air Room Air
--- NOTE | 2022-08-19 09:01 | PM.IMPN ---
Progress Note: A&P Assessment and Plan (1) Acute cholecystitis: Code(s): K81.0 - Acute cholecystitis Status: Acute Assessment and Plan: cipro + flagyl, anticipate discharge home tomorrow on oral antibiotics cont drain per surgery POD 1 nyasia (2) Abnormal urinalysis: Code(s): R82.90 - Unspecified abnormal findings in urine Status: Acute Assessment and Plan: urine culture negative, d/c rocephin (3) Pre-diabetes: Code(s): R73.03 - Prediabetes Status: Acute Assessment and Plan: A1c is 5.7 (4) Gastritis: Code(s): K29.70 - Gastritis, unspecified, without bleeding Status: Acute Assessment and Plan: Continue PPI Plan DVT prophylaxis with SCDs GI prophylaxis with PPI Code status full code Subjective Date/time seen: 08/19/22 09:01 Interval history: No overnight events noted. No chest pain or shortness of breath. No nausea, vomiting or diarrhea. No fevers or chills. Tolerating p.o. Already had a bowel movement. Review of Systems Review of Systems: 12 point review of systems was assessed and was negative except as noted in the HPI Exam Narrative: General: No acute distress, alert and oriented per baseline HEENT: Atraumatic, normocephalic, mucous membranes moist CV: Regular rate and rhythm, S1, S2 Lungs: Clear to auscultation bilaterally, no rales or crackles noted, no wheezes, good air entry Abdomen: Soft, mildly tender to palpation, nondistended Extremities: Normal to inspection Skin: No rashes noted, no lesions or wounds seen Psych: Euthymic, normal affect Objective Data Vital Signs Vital Signs: Vital Signs - 24 hr 08/18/22 09:10 08/18/22 09:13 08/18/22 10:24 Temperature 98.0 F Pulse Rate 71 Respiratory Rate 16 Blood Pressure 114/59 L Pulse Oximetry 99 98 96 Oxygen Delivery Nasal Cannula Nasal Cannula Oxygen Flow Rate 3 1 08/18/22 13:30 08/18/22 16:51 08/18/22 17:05 Temperature 98.2 F 98.1 F Pulse Rate 75 73 66 Respiratory Rate 16 15 17 Blood Pressure 132/72 101/55 L 101/60 Pulse Oximetry 96 95 96 Oxygen Delivery Room Air Simple Face Mask Simple Face Mask Oxygen Flow Rate 8 8 08/18/22 17:20 08/18/22 17:35 08/18/22 17:50 Temperature Pulse Rate 68 70 65 Respiratory Rate 23 H 22 H 21 H Blood Pressure 109/61 111/61 108/60 Pulse Oximetry 99 93 92 Oxygen Delivery Simple Face Mask Room Air Room Air Oxygen Flow Rate 8 08/18/22 18:05 08/18/22 18:20 08/18/22 18:50 Temperature 97.5 F L 97.6 F 97.7 F Pulse Rate 114 H 70 62 Respiratory Rate 16 16 16 Blood Pressure 113/61 119/64 115/65 Pulse Oximetry 91 93 93 Oxygen Delivery Oxygen Flow Rate 08/18/22 19:40 08/18/22 20:30 08/18/22 23:40 Temperature 97.9 F 98.2 F Pulse Rate 63 65 Respiratory Rate 15 16 Blood Pressure 125/67 120/64 Pulse Oximetry 94 94 Oxygen Delivery Room Air Oxygen Flow Rate 08/19/22 03:40 Temperature 97 F L Pulse Rate 52 L Respiratory Rate 17 Blood Pressure 116/55 L Pulse Oximetry 95 Oxygen Delivery Oxygen Flow Rate Intake/Output Intake/Output: Intake & Output 08/16/22 08/17/22 08/18/22 08/19/22 23:59 23:59 23:59 23:59 Intake Total 1250 2350 1750 200 Output Total 300 2107 530 Balance 1250 4217 -589 -670 Meds/Results Medications: Active Medications Generic Name Dose Route Start Last Admin Trade Name Freq PRN Reason Stop Dose Admin Acetaminophen 1,000 mg 08/18/22 17:55 Acetaminophen 500 Mg Tablet PO Q6H PRN Mild Pain (1-3) or Fever Hydrocodone Bitart/Acetaminophen 1 tab 08/18/22 17:55 Hydrocodone/Acetaminophen (*Crx) 5-325 Mg Tablet PO Q6H PRN Pain Rated 4-6 Hydrocodone Bitart/Acetaminophen 1 tab 08/18/22 17:55 Hydrocodone/Acetaminophen (*Crx) 7.5-325 Mg Tablet PO Q4H PRN Pain Rated 7-10 Albuterol 2.5 mg 08/17/22 22:09 Albuterol Sulfate Neb 2.5 Mg/3 Ml Inh INHALATION Q4HRT PRN Shortness Of [place]
[2022-08-19] MEDS: PANTOPRAZOLE SODIUM IV 40 MG VIAL IV PUSH (09:25)
[2022-08-19] MEDS: LIDOCAINE 5% PATCH 1 PATCH TRANSDERM (09:25)
[2022-08-19] MEDS: ENOXAPARIN 40 MG/0.4 ML SYRINGE SUB-Q (09:26)
[2022-08-19] MEDS: HYDROcodone/acetaminophen (*CRX) 7.5-325 MG TABLET 1 TAB PO (09:26)
[2022-08-19] MEDS: CIPROFLOXACIN 400 MG/D5W 200ML 200 ML 200 MG IVPB ×2 (10:04→20:53)
[2022-08-19 11:40] VITALS: BP 100/56; PULSE 53; RESP 16; TEMP 36.6; O2SAT 97
[2022-08-19 11:47] LABS: Glucose Point of Care 255 mg/dl (65-105)
[2022-08-19] MEDS: INSULIN ASPART (*BKC) 100 UNITS/ML SUB-Q (12:33)
[2022-08-19] MEDS: metroNIDAZOLE 500 MG/ISO 100ML 500 MG/100 ML BAG 100 MG IVPB ×2 (14:00→21:57)
[2022-08-19 16:32] LABS: Glucose Point of Care 186 mg/dl (65-105)
[2022-08-19] MEDS: ACIDOPHILUS/BULGARICUS CHEWABLE TABLET 1 TABLET PO ×2 (17:03→20:51)
[2022-08-19 17:39] VITALS: BP 106/58; PULSE 55; RESP 16; TEMP 36.4; O2SAT 98
[2022-08-19 19:40] VITALS: BP 109/60; PULSE 50; RESP 25; TEMP 36.2; O2SAT 96
[2022-08-19] MEDS: SENNA/DOCUSATE SODIUM TABLET 2 TAB PO (20:52)
[2022-08-20 00:10] LABS: Glucose Point of Care 136 mg/dl (65-105)
[2022-08-20] MEDS: SODIUM CHLORIDE 0.9% IV 1,000 ML 75 ML IV CONT (02:09)
[2022-08-20 05:00] VITALS: BP 98/62; PULSE 46; RESP 17; TEMP 36.3; O2SAT 96
[2022-08-20] MEDS: metroNIDAZOLE 500 MG/ISO 100ML 500 MG/100 ML BAG 100 MG IVPB ×2 (05:21→13:56)
[2022-08-20] MEDS: ACETAMINOPHEN 500 MG TABLET 1000 MG PO (05:24)
[2022-08-20] MEDS: ENOXAPARIN 40 MG/0.4 ML SYRINGE SUB-Q (08:18)
[2022-08-20] MEDS: PANTOPRAZOLE SODIUM IV 40 MG VIAL IV PUSH (08:18)
[2022-08-20] MEDS: ACIDOPHILUS/BULGARICUS CHEWABLE TABLET 1 TABLET PO ×2 (08:18→12:29)
[2022-08-20] MEDS: CIPROFLOXACIN 400 MG/D5W 200ML 200 ML 200 MG IVPB (08:18)
[2022-08-20] MEDS: LIDOCAINE 5% PATCH 1 PATCH TRANSDERM (08:18)
[2022-08-20 08:39] LABS: Basophils Percent Auto 0.3 % (0.2-1.2); Eosinophils Percent Auto 0.1 % (0-4.4); Hematocrit 34.9 % (42.0-52.0); Hemoglobin 11.6 g/dL (14.0-18.0); Immature Granulocyte Absolute 0.23 K/mm3 (0.00-0.031); Immature Granulocyte Percent A 2.3 % (0-0.5); Lymphocytes Absolute Auto 1.32 K/mm3 (0.9-3.2); Lymphocytes Percent Auto 13.3 % (18.3-44.2); Mean Corpuscular HGB Conc 33.2 g/dl (32-36); Mean Corpuscular Hemoglobin 30.2 pg (26-34); Mean Corpuscular Volume 90.9 fl (80-100); Mean Platelet Volume 9.9 fl (7.4-10.4); Monocytes Absolute Auto 0.8 K/mm3 (0.1-0.6); Monocytes Percent Auto 7.9 % (2.6-8.5); Neutrophils Absolute Auto 7.6 K/mm3 (1.3-6.7); Neutrophils Percent Auto 76.1 % (45.5-73.1); Platelet Count Result 194 k/mm3 (150-375); Red Blood Count 3.84 M/mm3 (4.6-6.20); Red Cell Distribution Width 13.5 % (11.5-14.5)
[2022-08-20 08:48] LABS: Alanine Aminotransferase 52 U/L (6-50); Albumin Level 2.6 g/dL (3.5-5.1); Alkaline Phosphatase 89 U/L (38-126); Anion Gap 8 mmol/L (8-16); Aspartate Amino Transferase 42 U/L (17-59); Bilirubin,Total 0.4 mg/dL (0.2-1.3); Blood Urea Nitrogen 22 mg/dL (9-20); Calcium 7.4 mg/dL (8.4-10.2); Carbon Dioxide 22 mmol/L (22-30); Chloride 109 mmol/L (98-107); Estimated CRCL calculation 92 ml/min; Estimated Glomerular Filt Rate > 60; Glucose 113 mg/dL (65-110); Magnesium 2.4 mg/dL (1.6-2.3); Potassium 3.6 mmol/L (3.4-5.0); Sodium 139 mmol/L (137-145)
[2022-08-20 09:32] LABS: Glucose Point of Care 109 mg/dl (65-105)
--- NOTE | 2022-08-20 10:04 | PM.DS ---
DS: Admitting Diagnosis Discharge Date August 20, 2022 Admitting Diagnosis Abdominal pain DS: Discharge Diagnosis Discharge Diagnosis (1) Acute cholecystitis: Code(s): K81.0 - Acute cholecystitis Status: Acute Assessment and Plan: cipro + flagyl, anticipate discharge home tomorrow on oral antibiotics cont drain per surgery POD 1 nyasia (2) Abnormal urinalysis: Code(s): R82.90 - Unspecified abnormal findings in urine Status: Acute Assessment and Plan: urine culture negative, d/c rocephin (3) Pre-diabetes: Code(s): R73.03 - Prediabetes Status: Acute Assessment and Plan: A1c is 5.7 (4) Gastritis: Code(s): K29.70 - Gastritis, unspecified, without bleeding Status: Acute Assessment and Plan: Continue PPI Plan DVT prophylaxis with SCDs GI prophylaxis with PPI Code status full code DS: Summary Hospital Course Hospital Course: 66-year-old male with? hypertension no longer on medication after weight loss, prediabetes, hypercholesterolemia, anxiety, and benign prostatic hyperplasia who presented to the emergency department from home for evaluation of abdominal pain. He reports ongoing and intermittent abdominal discomfort, dysphagia, early satiety, and weight loss since the beginning of this year. he saw Dr. Vazquez in November of this year and had an EGD which showed gastritis. He has been taking omeprazole since that time with initial improvement in his symptoms however over the past couple of months he has once again developed dyspepsia, bloating, and early satiety. Some days are better than others and he does not see a pattern as to when the symptoms occur her, specifically he has not noticed any specific foods that make things better or worse. Last night he started to have discomfort in the periumbilical region and quickly intensified to a severe, tight pain in the right upper quadrant associated with nausea, vomiting, and subjective fever.? He slept poorly and could not get comfortable last night due to the pain. He has never had pain exactly like this before. CT of the abdomen and pelvis today showed findings of acute cholecystitis with prominent pericholecystic inflammatory change and pericholecystic fluid as well as inflammatory changes affecting the adjacent hepatic flexure of the colon.? He is being admitted in this setting for IV antibiotics and surgery consultation. At the time my evaluation he is feeling a bit better after receiving IV morphine. MRCP was performed that showed no choledocholithiasis but continue cholecystitis. General surgery was consulted and recommended acute cholecystectomy. This was performed on August 18. IV antibiotics continued throughout the patient's stay. Due to a walled-off abscess noted during surgery, a drain was placed. Patient was then transitioned to oral antibiotics and discharged home with the drain in close outpatient follow-up by surgery. Time Spent with Patient Time attestation: Total time spent providing and/or coordinating discharge services: Exam Narrative: General: No acute distress, alert and oriented per baseline HEENT: Atraumatic, normocephalic, mucous membranes moist CV: Regular rate and rhythm, S1, S2 Lungs: Clear to auscultation bilaterally, no rales or crackles noted, no wheezes, good air entry Abdomen: Soft, mildly tender to palpation, nondistended Extremities: Normal to inspection Skin: No rashes noted, no lesions or wounds seen Psych: Euthymic, normal affect DS: Data Data Completed and Pending Pending studies at discharge: Pending at discharge 08/18/22 16:16 Surgical [PTH] Routine Labs on day of discharge: Labs from last 24 hours 08/20/22 08/20/22 08/20/22 08:22 08:22 08:04 WBC 10.0 RBC 3.84 L Hgb 11.6 L Hct 34.9 L MCV 90.9 MCH 30.2 MCHC 33.2 RDW 13.5 Plt Count 194 MPV 9.9 Immature Gran % (Auto) 2.3 H Neut % (Auto)
[2022-08-20 11:06] LABS: Glucose Point of Care 121 mg/dl (65-105)
[2022-08-20 11:16] VITALS: O2SAT 96
[2022-08-20 14:28] VITALS: BP 106/72; PULSE 61; RESP 18; TEMP 36.4; O2SAT 98
--- NOTE | 2022-08-20 14:50 | PM.PNGS ---
Progress Note: A&P Assessment and Plan (1) Cholelithiasis with acute on chronic cholecystitis: Code(s): K80.12 - Calculus of gallbladder with acute and chronic cholecystitis without obstruction Status: Acute Assessment and Plan: Doing well postop day 2. advancing diet. Okay to go to low-fat today. We have continue IV antibiotics in view of suspected perforation and walled off abscess in the right upper quadrant. however, white count down to normal today and I believe the patient could be can converted to oral antibiotics for total of 7-10 day course. (2) Cholecystitis with perforation of gallbladder: Code(s): K82.A2 - Perforation of gallbladder in cholecystitis Status: Acute Assessment and Plan: The patient had several areas of necrosis of his gallbladder and a walled off pocket of infection superior & lateral to the gallbladder and right lobe of the liver. Drain now in place draining that area and producing serosanguineous fluid. home on 5 - 7 more days of oral antibiotics. Will plan to leave drain in place and remove in the office. (3) Abnormal urinalysis: Code(s): R82.90 - Unspecified abnormal findings in urine Status: Acute Assessment and Plan: Culture apparently so far negative. (4) Pre-diabetes: Code(s): R73.03 - Prediabetes Status: Acute Assessment and Plan: fingerstick 121 this morning while starting diet. Subjective Subjective Date/Time Seen: 08/20/22 14:50 Post Op day: 2 ( Continuing to get stronger) Patient reports: no new complaints, feels better, flatus and bowel movement ( large soft) Interval history: patient states that he tolerated half of the chicken and rice that he was brought for lunch today. He is moving around more pain is significantly less such that he took only Tylenol orally this morning. Review of Systems Review of Systems: All systems reviewed & are unremarkable except as noted in HPI and below Constitutional: Constitutional: Reports as per HPI, Denies chills and Denies fever(s) Cardiovascular: Cardiovascular: Denies chest pain and Denies dyspnea Respiratory: Respiratory: Reports no additional respiratory complaints and Denies dyspnea Gastrointestinal: Gastrointestinal: Reports as per HPI and Denies bloating Musculoskeletal: Musculoskeletal: Reports no additional musculoskeletal complaints Neurologic: Denies memory loss Psychiatric: Psychiatric: Denies memory loss Exam Const: General: cooperative, comfortable, alert and awake Orientation/consciousness: oriented to person and oriented to place HENMT: Head: normal to inspection Mouth: Yes moist mucous membranes Eyes: Sclera: sclerae normal Pupils: Equal, round and reactive pupils present Neck: Neck: normal visual inspection and no JVD Chest: Chest palpation & inspection: normal inspection of the chest Resp: Effort & Inspection: normal respiratory effort Cardio: Jugular venous distension: no JVD Rate: regular rate GI: Inspection: incision ( clean and dry) and other ( SANDRA drain draining serosanguineous fluid.) Auscultation: normal bowel sounds Other: no erythema or signs of infection at other port sites. Neuro: Cranial nerves: Yes Equal, round and reactive pupils present Objective Data Vital Signs Vital Signs: Vital Signs - 24 hr 08/19/22 17:39 08/19/22 19:40 08/19/22 20:00 Temperature 36.4 C 36.2 C L Pulse Rate 55 L 50 L Respiratory Rate 16 25 H Blood Pressure 106/58 L 109/60 Pulse Oximetry 98 96 Oxygen Delivery Room Air 08/20/22 05:00 08/20/22 08:10 08/20/22 11:16 Temperature 36.3 C L Pulse Rate 46 L Respiratory Rate 17 Blood Pressure 98/62 L Pulse Oximetry 96 96 Oxygen Delivery Room Air Room Air 08/20/22 14:28 Temperature 36.4 C L Pulse Rate 61 Respiratory Rate 18 Blood Pressure 106/72 Pulse Oximetry 98 Oxygen Delivery Intake/Output Intake/Output: Intake & Output 08/17/22 1
== END 2022-08-20 16:00 | disposition home or self-care (01) | DRG 418 ==
LOC: ANHED 15:45 → ANH3MEDSUR 19:34
PROVIDERS: Emergency Medicine; Physician Assistant; Surgery; Admitting Provider Internal Medicine; Emergency Provider Emergency Medicine; PCP Internal Medicine; Visit Provider Student in an Organized Health Care Education/Training Program
PROC: 0FT44ZZ Resection of Gallbladder, Percutaneous Endoscopic Approach (ICD-10-PCS; CPT 47562; principal; 2022-08-18 13:30)
DX: K80.12 Calculus of gallbladder with acute and chronic cholecystitis without obstruction (principal); K82.A2 Perforation of gallbladder in cholecystitis; K82.8 Other specified diseases of gallbladder; K42.9 Umbilical hernia without obstruction or gangrene; Z20.822 Contact with and (suspected) exposure to COVID-19; E78.00 Pure hypercholesterolemia, unspecified; F41.9 Anxiety disorder, unspecified; K29.70 Gastritis, unspecified, without bleeding; I10 Essential (primary) hypertension; R82.90 Unspecified abnormal findings in urine; K21.9 Gastro-esophageal reflux disease without esophagitis; N40.0 Benign prostatic hyperplasia without lower urinary tract symptoms; R73.03 Prediabetes; R13.10 Dysphagia, unspecified; Z87.891 Personal history of nicotine dependence
CPT/HCPCS: 36415; 71046; 74177; 74183; 76376; 80048; 80053; 80076; 81001; 82948; 83036; 83605; 83690; 83735; 84153; 85025; 85027; 86850; 86900; 86901; 87040; 87070; 87075; 87086; 87205; 88304; 93005; 96365; 96367; 96375; 96376; 99285; A9270; A9577; C1713; C9113; G0103; J0360; J0696; J0744; J1100; J1650; J1815; J1885; J1940; J2250; J2270; J2405; J2704; J2710; J3010; J7030; J7120; Q9967; U0003; U0005

== ENCOUNTER 2022-11-21 07:50 | Outpatient (NON) | payer MEDICARE, SELFPAY | END 2022-11-21 07:51 | disposition home or self-care (01) | LOC: ANHLAB 11-22 07:52 | PROVIDERS: PCP Internal Medicine; Visit Provider Internal Medicine Gastroenterology | DX: D12.2 Benign neoplasm of ascending colon (principal); D12.3 Benign neoplasm of transverse colon; D12.4 Benign neoplasm of descending colon | CPT/HCPCS: 88305 ==

== ENCOUNTER 2022-11-21 12:00 | Day surgery (SDC) | payer MEDICARE, SELFPAY ==
[2022-10-07 14:11] VITALS: BMI 24.3
[2022-11-09 13:30] VITALS: BMI 24.5
--- NOTE | 2022-11-21 12:18 | WPDANESEPPF ---
Anes - Initial Pre Proc Eval Procedure: Operation Date: 11/21/22 14:30 Proposed Procedures p Screening Colonoscopy - Albin Waller MD Date/Time: 11/21/22 12:18 Surgeon: Albin Waller MD Pre Op Diagnosis: Neoplasm Screening Patient Data Age: 67 Gender: M Height: 1.85 m Weight: 84.5 kg Allergies Allergy/AdvReac Type Severity Reaction Status Date / Time No Known Allergies Allergy Verified 11/21/22 13:42 Home Medications Medication Instructions Recorded Confirmed Type simvastatin 40 mg tablet 40 mg PO DAILY 10/14/21 11/21/22 History ttmlqmyaumsg-sjw-sdetw acid-vit 1 tablet PO DAILY 11/18/21 11/21/22 History K-lycop 400 mcg-20 mcg-370 mcg tablet (One-A-Day Men's 50 Plus) omega-3 fatty acids 1 cap PO DAILY 11/18/21 11/21/22 History amino ac-vit [id number]-Jv-blertilf-hb9 1 tablet PO 1XD 05/19/22 11/21/22 History tablet escitalopram oxalate 5 mg tablet 20 mg PO DAILY 05/19/22 11/21/22 History omeprazole 40 mg capsule,delayed 40 mg PO 1XD 08/16/22 11/21/22 History release hydroxyzine HCl 25 mg tablet 25 mg PO HS 11/09/22 11/21/22 History Patient hx anesthesia problems: none Family hx anesthesia problems: none Results Review: All pre-operative results and documents have been reviewed as part of the pre-operative evaluation. [facility] Past Medical History Medical History (Updated 09/13/22 @ 10:07 by Aric Crespo MD) Anxiety Cholelithiasis with acute on chronic cholecystitis Elevated liver enzymes Gastritis Hyperlipidemia Hypertension No longer on medication after weight loss. Nausea Pre-diabetes No longer on medication after weight loss. Upper abdominal pain Surgical History Surgical History History of lumbar surgery Hx laparoscopic cholecystectomy 08/18/22 Status post bilateral LASIK surgery Family History Family History Father Acute myocardial infarction Mother Diabetes mellitus Social History Social History (Reviewed 09/13/22 @ 08:12 by Eloisa Staples Social History: Surrogate medical decision maker: Enedina Davila, spouse. Code status: Full code. Years smoked: 2 Smoking status: Never smoker Tobacco type: cigarettes Alcohol intake: never Substance use: never Substance use type: does not use Lack of Transportation: No Lack of Food: Never True Current Housing: I Have Housing Concerned About Future Housing: No Difficulty Paying Gas/Electric Bills: No Difficulty Paying for Meds: No Currently Unemployed: No Education: High School Diploma/GED Difficulty w/ Childcare or Family Care: No Living arrangements: with family Occupation/Education: retired Spiritual care concerns: No Anes - Eval Final PreProcedure Day of Procedure 11/21/22 12:18 Patient weight: normal Heart: regular rate and rhythm Lungs: decreased breath sounds Airway: Mallampati scale class III Neurological: alert and oriented Last oral intake: >/= 8 hours ASA classification: II Emergent: no Anesthetic plan: proceed Anesthesia type and monitoring: general GIVS and standard monitoring Results Review: All pre-operative results and documents have been reviewed as part of the pre-operative evaluation. Informed Consent: The patient's anesthetic plan and its attendant risks and benefits were discussed with the patient/family/POA. Questions were solicited and answers provided to the satisfaction of the patient/family/POA.
[2022-11-21 13:40] VITALS: BP 150/94; PULSE 61; RESP 20; TEMP 37.1; O2SAT 100
[2022-11-21] MEDS: LACTATED RINGERS 1,000 ML 150 ML IV CONT (13:54)
--- NOTE | 2022-11-21 14:38 | PM.HPGS ---
History of Present Illness History of Present Illness Consent: Risks, benefits, and alternatives have been discussed and questions answered. Patient agrees to proceed with procedure. Chief complaint: Neoplasm Screening Narrative: Bowen Davila is a 67 year old male with colon polyp in 2018 Review of Systems Constitutional: Constitutional: Denies headache(s) and Denies weakness Eyes: Eyes: Denies blurry vision ENT: Reports Normal hearing present, Denies headache(s) and Denies neck pain Cardiovascular: Cardiovascular: Denies chest pain and Denies dyspnea Respiratory: Respiratory: Denies dyspnea Gastrointestinal: Gastrointestinal: Reports no additional gastrointestinal complaints Genitourinary: Genitourinary: Denies dysuria Musculoskeletal: Musculoskeletal: Denies neck pain Integumentary/Breasts: Skin/Breast: Denies dry skin Neurologic: Reports Normal hearing present, Denies headache(s) and Denies weakness Psychiatric: Psychiatric: Denies anxiety Endocrine: Endocrine: Denies change in body appearance Hematologic/Lymphatic: Hematologic/Lymphatic: Denies easy bleeding Allergic/Immunologic: Allergic/Immunologic: Denies urticaria PMFSH Past Medical History Medical History (Updated 09/13/22 @ 10:07 by Aric Crespo MD) Anxiety Cholelithiasis with acute on chronic cholecystitis Elevated liver enzymes Gastritis Hyperlipidemia Hypertension No longer on medication after weight loss. Nausea Pre-diabetes No longer on medication after weight loss. Upper abdominal pain Surgical History Surgical History History of lumbar surgery Hx laparoscopic cholecystectomy 08/18/22 Status post bilateral LASIK surgery Family History Family History Father Acute myocardial infarction Mother Diabetes mellitus Social History Social History Social History: Surrogate medical decision maker: Enedina Davila, spouse. Code status: Full code. Years smoked: 2 Smoking status: Never smoker Tobacco type: cigarettes Alcohol intake: never Substance use: never Substance use type: does not use Lack of Transportation: No Lack of Food: Never True Current Housing: I Have Housing Concerned About Future Housing: No Difficulty Paying Gas/Electric Bills: No Difficulty Paying for Meds: No Currently Unemployed: No Education: High School Diploma/GED Difficulty w/ Childcare or Family Care: No Living arrangements: with family Occupation/Education: retired Spiritual care concerns: No Meds Home Medications and Allergies Home Medications Medication Instructions Recorded Confirmed Type simvastatin 40 mg tablet 40 mg PO DAILY 10/14/21 11/21/22 History isfymshjnfdt-tvv-hooqu acid-vit 1 tablet PO DAILY 11/18/21 11/21/22 History K-lycop 400 mcg-20 mcg-370 mcg tablet (One-A-Day Men's 50 Plus) omega-3 fatty acids 1 cap PO DAILY 11/18/21 11/21/22 History amino ac-vit V-Ta-kshtcwfl-hb9 1 tablet PO 1XD 05/19/22 11/21/22 History tablet escitalopram oxalate 5 mg tablet 20 mg PO DAILY 05/19/22 11/21/22 History omeprazole 40 mg capsule,delayed 40 mg PO 1XD 08/16/22 11/21/22 History release hydroxyzine HCl 25 mg tablet 25 mg PO HS 11/09/22 11/21/22 History Allergies Allergy/AdvReac Type Severity Reaction Status Date / Time No Known Allergies Allergy Verified 11/21/22 13:42 Vital Signs Vital Signs - 24 hr 11/21/22 13:40 Temperature 98.8 F Pulse Rate 61 Respiratory Rate 20 Blood Pressure 150/94 H Pulse Oximetry 100 Oxygen Delivery Room Air Exam Const: General: comfortable and no acute distress HENMT: Face/Nose/Sinus: Normal nares present Eyes: General: appearance normal, both eyes and all related structures Neck: Neck: no JVD Resp: Auscultation: clear to auscultatio
[2022-11-21 15:10] VITALS: BP 108/75; PULSE 59; RESP 18; O2SAT 96
[2022-11-21 15:20] VITALS: BP 126/86; PULSE 58; RESP 18; O2SAT 96
[2022-11-21 15:30] VITALS: BP 137/80; PULSE 56; RESP 18; O2SAT 99
--- NOTE | 2022-11-21 15:48 | WPDANESPN ---
Anes - Prog Note Post-Op Date/Time: 11/21/22 15:48 Cardiovascular status: normal Respiratory status: normal Airway patency: baseline Mental status: baseline Post-Op hydration status: normal Vital Signs: Last Vital Signs Temp 37.1 C 11/21/22 13:40 Pulse 56 L 11/21/22 15:30 Resp 18 11/21/22 15:30 BP 137/80 11/21/22 15:30 Pulse Ox 99 11/21/22 15:30 O2 Del Method Room Air 11/21/22 15:30 Pain Score (VAS): 0 I/O: Intake & Output 11/20/22 11/21/22 11/21/22 23:59 07:59 15:59 Intake Total 200 Balance 200 Post-procedural complaints: none Patient Feedback: Patient satisfied with anesthetic care.
== END 2022-11-21 15:48 | disposition home or self-care (01) ==
PROVIDERS: PCP Internal Medicine; Visit Provider Internal Medicine Gastroenterology
PROC: 0DJD8ZZ Inspection of Lower Intestinal Tract, Via Natural or Artificial Opening Endoscopic (ICD-10-PCS; CPT 45378; principal; 2022-11-21 14:30)
DX: Z86.010 Personal history of colon polyps (principal)
CPT/HCPCS: 45385

== ENCOUNTER 2022-12-12 09:54 | Emergency (ER) | payer MEDICARE, SELFPAY ==
[2022-12-12] VITALS (27 sets, daily range): BP systolic 121–163; BP diastolic 65–84; PULSE 56–66; RESP 13–19; TEMP 36.6; O2SAT 90–100
--- NOTE | ~2022-12-12 | XR_ITS ---
EXAMINATION: XR chest 2V Exam Date/Time: 12/12/2022 17:29 WINCHMAN/CRANE OPERATOR HISTORY: Anxiety, AMS Comparison: 08/17/2022. RESULT: Lines, tubes, and devices: None. Lungs and pleura: Bibasilar scar/atelectasis, otherwise clear. Cardiomediastinal silhouette: Stable. Calcified hilar nodes. Other: No acute osseous or upper abdominal finding. IMPRESSION: No acute cardiopulmonary process. Reviewed, dictated and finalized at location K. HMAN/CRANE OPERATOR
--- NOTE | ~2022-12-12 | US_ITS ---
EXAMINATION: US venous doppler [facility] DATE: 12/12/2022 18:33 INDICATION: edema . TECHNIQUE: Grayscale images without and with compression and Doppler images of the bilateral lower ex tremity veins were obtained. COMPARISON: None FINDINGS: The right common femoral vein, profunda (deep) femoral vein, femoral vein, popliteal vein, peroneal v ein, posterior tibial veins, gastrocnemius vein, and greater saphenous vein are patent. The left common femoral vein, profunda femoral vein, femoral vein, popliteal vein, peroneal vein, pos terior tibial veins, gastrocnemius vein, and greater saphenous vein are patent. IMPRESSION: 1. Patent bilateral lower extremity veins. No evidence of deep venous thrombosis. Reviewed, dictated and finalized at location K. UET FLOOR LAYER IMPRESSION: 1. Patent bilateral lower extremity veins. No evidence of deep venous thrombos is.
--- NOTE | ~2022-12-12 | CT_ITS ---
EXAMINATION: CT brain wo con DATE: 12/12/2022 21:45 INDICATION: Malorie . TECHNIQUE: Computed tomography (CT) of the head was performed without intravenous contrast. The mA wa s adjusted according to patient size. Iterative reconstruction technique was employed. The dose-lengt h product was 681.00 mGy-cm. COMPARISON: None. FINDINGS: No acute intracranial hemorrhage or extra-axial fluid collection. No hydrocephalus, mass, or herniation. No acute ischemic infarct. Unremarkable dural venous sinus attenuation. No acute osseous abnormality. The aerated spaces are clear. Mild atrophy and chronic white matter change. Mild atherosclerotic intracranial calcification. Postsu rgical change in the right globe. IMPRESSION: No acute intracranial process. Reviewed, dictated and finalized at location K. EON CHIEF
--- NOTE | 2022-12-12 17:01 | ECG_ITS ---
Measurements Intervals [place] Rate: 53 P: 61 RI: 197 QRS: -23 QRSD: 105 T: 26 QT: 452 QTc: 427 Interpretive Statements SINUS BRADYCARDIA LEFT VENTRICULAR HYPERTROPHY BORDERLINE R WAVE PROGRESSION, ANTERIOR LEADS BORDERLINE ECG COMPARED TO ECG 08/17/2022 10:02:59 SINUS BRADYCARDIA NOW PRESENT Electronically Signed On 12-12-2022 20:53:07 CAREER COUNSELOR by Dmitri Gongora D.O.
--- NOTE | 2022-12-12 17:02 | ED.GENADULT ---
HPI - General Adult General Chief complaint: Unspecified <Liam Perez MD - Last Filed: 12/13/22 13:27> Stated complaint: Jimbo, swelling <Liam Perez MD - Last Filed: 12/13/22 13:27> Time Seen by Provider: 12/12/22 16:50 <Liam Perez MD - Last Filed: 12/13/22 13:27> History of Present Illness HPI narrative: Patient is a 67-year-old male who presents ER due to concern of possible jimbo by his family. Apparently patient had a colonoscopy performed 1 month ago and then afterwards he has been hyperactive. He is sleeping approximately 1 hour a night. Hydroxyzine is not helping. He has begun spending money in ways that are uncharacteristic of him. He is making impulsive online shopping purchases and he recently spent $600 at an [email or web address]. He has history of depression in the past. No history of bipolar. There is no history of illicit drug use. They report 25 pound weight gain over the last 2 to 3 months since he had his gallbladder out because he is eating more normally. They also endorse he has new lower extremity edema and they cannot attribute this to a medication or any other change. No hallucinations. They report patient has had pressured speech over the same course of time. They also feel like she is becoming increasing more frustrated/agitated over the last few days. <Liam Perez MD - Last Filed: 12/13/22 13:27> Related Data Home medications: Home Medications Medication Instructions Recorded Confirmed simvastatin 40 mg tablet 40 mg PO DAILY 10/14/21 11/21/22 lusvxfmacukj-vfq-cayrb acid-vit 1 tablet PO DAILY 11/18/21 11/21/22 K-lycop 400 mcg-20 mcg-370 mcg tablet (One-A-Day Men's 50 Plus) omega-3 fatty acids 1 cap PO DAILY 11/18/21 11/21/22 amino ac-vit H-Lj-mhuhpjiq-hb9 1 tablet PO 1XD 05/19/22 11/21/22 tablet escitalopram oxalate 5 mg tablet 20 mg PO DAILY 05/19/22 11/21/22 omeprazole 40 mg capsule,delayed 40 mg PO 1XD 08/16/22 11/21/22 release hydroxyzine HCl 25 mg tablet 25 mg PO HS 11/09/22 11/21/22 <Liam Perez MD - Last Filed: 12/13/22 13:27> Allergies/adverse reactions: Allergies Allergy/AdvReac Type Severity Reaction Status Date / Time No Known Allergies Allergy Verified 11/21/22 13:42 <Liam Perez MD - Last Filed: 12/13/22 13:27> Review of Systems Review of Systems: All systems reviewed & are unremarkable except as noted in HPI and below <Liam Perez MD - Last Filed: 12/13/22 13:27> Constitutional: Constitutional: Denies chills, Denies fatigue, Denies fever(s) and Reports weight gain <Liam Perez MD - Last Filed: 12/13/22 13:27> Cardiovascular: Cardiovascular: Denies chest pain, Denies rapid heart rate and Denies radiating jaw, neck or arm pain <Liam Perez MD - Last Filed: 12/13/22 13:27> Respiratory: Respiratory: Denies cough, Denies dyspnea and Denies wheezing <Liam Perez MD - Last Filed: 12/13/22 13:27> Musculoskeletal: Musculoskeletal: Denies arthralgias <Liam Perez MD - Last Filed: 12/13/22 13:27> Comments: lower extremity edema <Liam Perez MD - Last Filed: 12/13/22 13:27> Psychiatric: Psychiatric: Reports anxiety, Reports behavioral changes, Denies depression, Reports irritability, Denies panic attacks, Denies paranoia, Denies homicidal ideation and Denies suicidal ideation <Liam Perez MD - Last Filed: 12/13/22 13:27> [facility] Past Medical History Medical History: Medical History (Updated 12/13/22 @ 01:04 by Alonzo Yin MD) Anxiety Cholelithiasis with acute on chronic cholecystitis Elevated liver enzymes Gastritis Hyperlipidemia Hypertension No longer on medication after weight loss. Nausea Pre-diabetes No longer on medication after weight loss. Upper abdominal pain <Liam Perez MD - Last Filed: 12/13/22 13:27> Surgical History Surgical History: Surgical History (Reviewed 09/13/22 @ 08:12 by Eloisa Carson
--- NOTE | 2022-12-12 17:49 | PC.NURSE ---
pt not able to give urine at this time.
[2022-12-12 18:07] LABS: Basophils Percent Auto 0.7 % (0.2-1.2); Eosinophils Absolute Auto 0.2 K/mm3 (0-0.3); Eosinophils Percent Auto 3.9 % (0-4.4); Hematocrit 41.4 % (42.0-52.0); Hemoglobin 14.1 g/dL (14.0-18.0); Immature Granulocyte Absolute 0.02 K/mm3 (0.00-0.031); Immature Granulocyte Percent A 0.3 % (0-0.5); Lymphocytes Absolute Auto 2.02 K/mm3 (0.9-3.2); Lymphocytes Percent Auto 34.3 % (18.3-44.2); Mean Corpuscular HGB Conc 34.1 g/dl (32-36); Mean Corpuscular Hemoglobin 30.9 pg (26-34); Mean Corpuscular Volume 90.6 fl (80-100); Monocytes Absolute Auto 0.8 K/mm3 (0.1-0.6); Monocytes Percent Auto 14.1 % (2.6-8.5); Neutrophils Absolute Auto 2.8 K/mm3 (1.3-6.7); Neutrophils Percent Auto 46.7 % (45.5-73.1); Platelet Count Result 225 k/mm3 (150-375); Red Blood Count 4.57 M/mm3 (4.6-6.20); Red Cell Distribution Width 13.2 % (11.5-14.5); White Blood Count 5.9 K/mm3 (4.5-10.0)
[2022-12-12 18:19] LABS: Ethanol < 10 mg/dL (<10)
[2022-12-12 18:20] LABS: Alanine Aminotransferase 33 U/L (6-50); Albumin Level 4.2 g/dL (3.5-5.1); Alkaline Phosphatase 67 U/L (38-126); Anion Gap 8 mmol/L (8-16); Aspartate Amino Transferase 47 U/L (17-59); Blood Urea Nitrogen 17 mg/dL (9-20); Calcium 8.8 mg/dL (8.4-10.2); Carbon Dioxide 23 mmol/L (22-30); Chloride 106 mmol/L (98-107); Estimated CRCL calculation 74 ml/min; Estimated Glomerular Filt Rate > 60; Glucose 92 mg/dL (65-110); Potassium 3.7 mmol/L (3.4-5.0); Sodium 137 mmol/L (137-145)
[2022-12-12 18:29] LABS: NT Pro B Type Natriuretic Pept 40 pg/mL (19.9-100)
[2022-12-12] MEDS: LORazepam INJ (*CRX) 2 MG/ML VIAL 0.5 MG IV PUSH (18:52)
[2022-12-12 19:09] LABS: Influenza A QL RT-PCR Negative (Negative); Influenza B QL RT-PCR Negative (Negative); SARS-CoV-2 RNA PCR Negative
[2022-12-12 20:57] LABS: Appearance Urine Clear (Clear); Bilirubin Urine Negative (Negative); Blood Urine Negative (Negative); Color Urine Yellow (Yellow); Glucose Urine UA Negative (Negative); Ketones Urine Trace mg/dL (Negative); Leukocyte Esterase Ur Negative LEU/UL (Negative); Nitrate Urine Negative (Negative); Protein Urine Negative (Negative); Urobilinogen Urine 0.2 mg/dL (<2.0)
[2022-12-12 20:58] LABS: Add Urine Microscopic? NO
[2022-12-12 21:16] LABS: Amphetamine Screen Urine Negative (Negative); Barbiturate Screen Urine Negative (Negative); Benzodiazepines Screen Urine Negative (Negative); Cannabinoid Screen Urine Negative (Negative); Cocaine Screen Urine Negative (Negative); Methadone Screen Urine Negative (Negative); Opiate Screen Urine Negative (Negative); Phencyclidine Screen Urine Negative (Negative)
--- NOTE | 2022-12-12 21:34 | PC.NURSE ---
Crisis team here and will speak to patient and family to evaluate.
--- NOTE | 2022-12-12 21:34 | PC.NURSE ---
When in room patient and his and daughter state that the pt has had sondra colored fluid leaking from his facial pores since 2019. Pt states it is so heavy he has to keep a washcloth around to wipe it just so he can open his eyes. notified.
[2022-12-13 00:13] VITALS: O2SAT 98
[2022-12-13 01:19] VITALS: BP 138/75; PULSE 78; RESP 18; O2SAT 98
== END 2022-12-13 01:20 | disposition home or self-care (01) ==
PROVIDERS: Emergency Medicine; Emergency Provider Emergency Medicine; PCP Internal Medicine
DX: R41.82 Altered mental status, unspecified (principal); F30.9 Manic episode, unspecified; Z20.822 Contact with and (suspected) exposure to COVID-19; E78.5 Hyperlipidemia, unspecified; I10 Essential (primary) hypertension; R60.0 Localized edema; F41.9 Anxiety disorder, unspecified; Z79.899 Other long term (current) drug therapy; R00.1 Bradycardia, unspecified; I51.7 Cardiomegaly; R94.31 Abnormal electrocardiogram [ECG] [EKG]
CPT/HCPCS: 36415; 70450; 71046; 80053; 80307; 81003; 83880; 84443; 85025; 87636; 93005; 93970; 96374; 99284; J2060

== ENCOUNTER 2023-01-23 12:24 | Outpatient (CLI) | payer MEDICARE, SELFPAY ==
--- NOTE | 2023-01-23 | ECHO_ITS ---
Patient Info Name: Bowen Davila Age: 67 years : 1955 Gender: Male Ht: 73 in Wt: 242 lbs BSA: 2.41 m2 HR: 63 bpm BP: 148 / 81 mmHg Heart Rhythm: Sinus Rhythm Technical Quality: Fair Exam Date: 01/23/2023 1:23 PM Exam Location: [facility] Patient Status: Outpatient Admit Date: 01/23/2023 Staff Ordering Physician: SantoJonathan MD Foreign Exchange Student Coordinator: Columba Mondragon RDCS Attending Provider: JessikaJonathan MD Exam Type: CA echo doppler color flow Study Info Indications R60.9 - Edema, unspecified Complete two-dimensional, color flow and Doppler transthoracic echocardiogram is performed. Summary 1. Complete two-dimensional, color flow and Doppler transthoracic echocardiogram is performed. 2. Normal left ventricular size, thickness and systolic function. 3. Grade 1 diastolic noncompliance. 4. Mild mitral annular calcification but no valve dysfunction. Left Ventricle Left ventricular chamber dimension is normal. Left ventricular systolic function is normal, estimated at 55-60%. The left ventricular diastolic function is grade I diastolic dysfunction. Right Ventricle Right ventricular chamber dimension is normal. Left Atria Left atrial chamber dimension is normal. Right Atria Right atrial chamber dimension is normal. Aortic Valve The aortic valve is normal. Pulmonic Valve The pulmonic valve is not well visualized. Mitral Valve The mitral valve has normal leaflets. The mitral valve annulus is mildly calcified. Tricuspid Valve The tricuspid valve leaflets are normal. Pericardium/Pleural The pericardium appears normal. Aorta The aortic root size at the sinus of Valsalva is normal. Left Ventricular Outflow Tract Name Value Normal LVOT 2D LVOT Diameter 2.0 cm LVOT Doppler LVOT Peak Gradient 5 mmHg LVOT Mean Gradient 2 mmHg LVOT VTI 23 cm LVOT VTI/AV VTI Ratio 0.9 LVOT Stroke Volume 71 ml LVOT CO 4.1 l/min LVOT CI 1.7 l/min/m2 Pulmonic Valve Name Value Normal RVOT Doppler RVOT Peak Gradient 2 mmHg PV Doppler PV Peak Gradient 5 mmHg Mitral Valve Name Value Normal MV Doppler MV Decel Ogle 297 cm/s2 MV PHT 71 ms MV Area (PHT) 3.1 cm2
== END 2023-01-23 12:25 | disposition home or self-care (01) ==
PROVIDERS: PCP Internal Medicine; Visit Provider Internal Medicine
DX: R60.9 Edema, unspecified (principal)
CPT/HCPCS: 93306

== ENCOUNTER 2024-05-09 14:39 | Outpatient (CLI) | payer MEDICARE, SELFPAY ==
--- NOTE | 2024-05-09 | ECHO_ITS ---
Patient Info Name: Bowen Davila Age: 68 years : 1955 Gender: Male Ht: 73 in Wt: 222 lbs BSA: 2.30 m2 HR: 68 bpm BP: 169 / 95 mmHg Heart Rhythm: Sinus Rhythm Technical Quality: Good Exam Date: 05/09/2024 3:12 PM Exam Location: [facility] Patient Status: Outpatient Admit Date: 05/09/2024 Staff Ordering Physician: SantoJonathan MD Cushion Spring Assembler: Sarah Castillo RDCS Attending Provider: JessikaJonathan MD Exam Type: CA echo doppler color flow Study Info Indications - ABN EKG Complete two-dimensional, color flow and Doppler transthoracic echocardiogram is performed. Summary 1. Complete two-dimensional, color flow and Doppler transthoracic echocardiogram is performed. 2. Left ventricular chamber dimension is normal. 3. Left ventricular systolic function is normal, estimated at 60-65%. 4. There is mild concentric increased left ventricular wall thickness. 5. The left ventricular diastolic function is grade I diastolic dysfunction. 6. E/e' 11 is mildly elevated. 7. No pulmonary hypertension, estimated pulmonary arterial systolic pressure is 12 mmHg. Left Ventricle E/e' 11 is mildly elevated. Left ventricular chamber dimension is normal. Left ventricular systolic function is normal, estimated at 60-65%. There is mild concentric increased left ventricular wall thickness. The left ventricular diastolic function is grade I diastolic dysfunction. Right Ventricle Right ventricular systolic function is normal and with normal TAPSE 2.5 cm. Right ventricular chamber dimension is normal. Left Atria Left atrial chamber dimension is normal. Right Atria Right atrial chamber dimension is normal. Aortic Valve The aortic valve is trileaflet. There is no aortic valve stenosis. There is no aortic valve regurgitation. Pulmonic Valve There is no pulmonic regurgitation. Mitral Valve There is no mitral valve stenosis. There is no mitral valve regurgitation. Tricuspid Valve There is no tricuspid valve regurgitation. No pulmonary hypertension, estimated pulmonary arterial systolic pressure is 12 mmHg. Pericardium/Pleural There is no pericardial effusion. Inferior Vena Cava Normal inferior vena cava with >50% collapse upon inspiration consistent with normal right atrial pressure, 5 mmHg. Aorta The aortic root size at the sinus of Valsalva is normal. Left Ventricular Outflow Tract Name Value Normal LVOT 2D LVOT Diameter 2.1 cm LVOT Doppler LVOT Peak Gradient 3 mmHg LVOT Mean Gradient 2 mmHg LVOT VTI 19 cm LVOT VTI/AV VTI Ratio 0.8 LVOT Stroke Volume 70 ml LVOT CO 4.0 l/min LVOT CI 1.7 l/min/m2 Pulmonic Valve Name Value Normal PV Doppler PV Peak Gradient 2 mmHg Mitral Valve
== END 2024-05-09 14:40 | disposition home or self-care (01) ==
PROVIDERS: PCP Internal Medicine; Visit Provider Internal Medicine
DX: R94.31 Abnormal electrocardiogram [ECG] [EKG] (principal)
CPT/HCPCS: 93306

== ENCOUNTER 2024-08-30 12:12 | Outpatient (CLI) | payer MEDICARE, SELFPAY ==
--- NOTE | ~2024-08-30 | US_ITS ---
Renal-Bladder ultrasound Clinical History: Abnormal renal labs Technique: Real-time sonographic imaging of the kidneys and urinary bladder was performed. Findings: The right kidney measures 10.3 cm in length and the left kidney measures 10.8 cm. There is no hydronephrosis or renal calculus identified. Renal cortical echogenicity is within normal limits. Bilateral renal cysts are noted. The urinary bladder is moderately distended at the time of this exam. No intraluminal echoes are iden tified. No abnormal wall thickening is seen. Impression: No significant abnormality. Reviewed, dictated and finalized at location . T DESK REPRESENTATIVE Impression: No significant abnormality.
== END 2024-08-30 12:13 | disposition home or self-care (01) ==
LOC: MICIMG 12:13
PROVIDERS: PCP Internal Medicine; Visit Provider Internal Medicine
DX: R89.9 Unspecified abnormal finding in specimens from other organs, systems and tissues (principal)
CPT/HCPCS: 76775

== ENCOUNTER 2025-08-20 09:21 | Outpatient (CLI) | payer MEDICARE, SELFPAY ==
--- OUTSIDE RECORDS SUMMARY | 2025-01-30 04:40 | XMS_ITS ---
Author Organization [facility] Address [address] [place] [address] Care Team Providers Care Unit Receptionist Name Role Phone Sukhdeep James Primary Care Provider [phone] REASON FOR VISIT 3 Month Psych F/U & Med Refill Social History Sex Assigned At : Social History Observation Description Sex Assigned At Male Encounters Encounter Location Date Provider Diagnosis [address] [place] [address] 01/30/2025 Sukhdeep James Plan Of Treatment No Information Progress Notes * Bowen BILLINGSLEYDOB:[birth year] (69 yo M)Acc No.[id number]:01/30/2025 UNLOCKED PROGRESS NOTE Patient: Bowen BARRIOS Provider: Hyun James DNP, PMHNP-BC :1955 A ge:69 Y S ex:Male Date:01/30/2025 Address:[address] [place], [place] [id number] Subjective: * Chief Complaints: * 1 . 3 Month Psych F/U & Med Refill. * Medical History: Objective: * Vitals: Assessment: Plan: * Treatment: * * Electronic signature of Lizette James APRN, [id number] on 08/20/2025 at 10:13 AM JEWEL GAUGER Sign off status: Pending * Provider: Hyun James DNP, PMHNP-BC Date: 0 01/30/2025 Generated for Sauloi ng/Fawingg/eTransmitting on: 1 10/20/2024 10:13 AM JEWEL GAUGER
--- OUTSIDE RECORDS SUMMARY | 2025-02-27 08:40 | XMS_ITS ---
Author Organization [facility] Address [address] [place] [address] Care Team Providers Care Internet Retailer Name Role Phone Sukhdeep James Primary Care Provider REASON FOR VISIT 3 Week F/U Social History Sex Assigned At : Social History Observation Description Sex Assigned At Male Encounters Encounter Location Date Provider Diagnosis [address] [place] [address] 02/27/2025 Sukhdeep James Plan Of Treatment No Information Progress Notes * MALLIKAELISAPITERARGELIA BowenDOB:[birth year] (69 yo M)Acc No.[id number]:02/27/2025 UNLOCKED PROGRESS NOTE Patient: Bowen BARRIOS Provider: Hyun James DNP, PMHNP-BC :1955 A ge:69 Y S ex:Male Date:02/27/2025 Address[id number] Subjective: * Chief Complaints: * 1 . 3 Week F/U. * Medical History: Objective: * Vitals: Assessment: Plan: * Treatment: * * Electronic signature of Lizette James APRN, [id number] on 08/20/2025 at 10:12 AM AGRICULTURAL CONSULTANT Sign off status: Pending * Provider: Hyun James DNP, PMHNP-BC Date: 0 02/27/2025 Generated for Printi ng/Faxing/eTransmitting on: 1 10/20/2024 10:12 AM AGRICULTURAL CONSULTANT
--- OUTSIDE RECORDS SUMMARY | 2025-03-06 09:20 | XMS_ITS ---
Author Organization [facility] Address [address] [place] [address] Care Team Providers Care Straightening Press Operator Helper Name Role Phone Sukhdeep James Primary Care Provider [phone] REASON FOR VISIT 3 Week F/U Social History Sex Assigned At : Social History Observation Description Sex Assigned At Male Encounters Encounter Location Date Provider Diagnosis [address] [place] [address] 03/06/2025 Sukhdeep James Plan Of Treatment No Information Progress Notes * MALLIKAELISAPITERARGELIABowenDOB:09[birth year] (69 yo M)Acc No.[id number]:03/06/2025 UNLOCKED PROGRESS NOTE Patient: Bowen BARRIOS Provider: Hyun James DNP, PMHNP-BC :1955 A ge:69 Y S ex:Male Date:03/06/2025 Address:[id number] Subjective: * Chief Complaints: * 1 . 3 Week F/U. * Medical History: Objective: * Vitals: Assessment: Plan: * Treatment: * * Electronic signature of Lizette James APRN, [id number] on 08/20/2025 at 10:13 AM DISHROOM ATTENDANT Sign off status: Pending * Provider: Hyun James DNP, PMHNP-BC Date: 0 03/06/2025 Generated for Printi ng/Faxing/eTransmitting on: 1 10/20/2024 10:13 AM DISHROOM ATTENDANT
--- OUTSIDE RECORDS SUMMARY | 2025-08-20 10:13 | XMS_ITS | Clinical Summary ---
Author Organization [facility] Address [address] [place] [address] Care Team Providers Care Management Supervisor Name Role Phone Jonathan Blanchard MD Primary Care Provider Allergies No known active allergies Medications fluorouracil 5 % cream APPLY TO FOREHEAD AND TEMPLES TWICE A DAY X2 WEEKS THEN TO THE NOSE TWICE A DAY X2 WEEKS 0 Active fish oil 1000 MG Cap capsule Take 1,000 mg by mouth 2 (two) times daily. Active escitalopram (LEXAPRO) 10 MG tabletIndications:A nxiety Take 1 tablet (10 mg total) by mouth daily. 90 tablet 0 Active lisinopril 2.5 MG tabletIndications:B enign essential hypertension Take 1 tablet (2.5 mg total) by mouth daily. DIRECTED 90 tablet 3 0 Active metFORMIN ER 500 MG 24 hr tabletIndications:T ype 2 diabetes mellitus without complication, without long-term current use of insulin ([facility] H[facility]/HCC) Take 1 tablet (500 mg total) by mouth daily. 180 tablet 3 0 Active famotidine 20 MG tabletIndications:G astroesophageal reflux disease, esophagitis presence not specified Take 1 tablet (20 mg total) by mouth 2 (two) times daily. 180 tablet 3 0 Active simvastatin 40 MG tabletIndications:M ixed hyperlipidemia Take 1 tablet (40 mg total) by mouth daily. 90 tablet 3 0 Active fluticasone propionate 50 MCG/ACT nasal sprayIndications:Se asonal allergic rhinitis due to pollen 2 sprays by Nasal route daily. 48 g 3 0 Active ASPIRIN LOW DOSE 81 MG tabletIndications:H ealth care maintenance TAKE 1 TABLET BY MOUTH EVERY DAY 90 tablet 1 0 Active ALPRAZOLAM 0.25 MG tabletIndications:A nxiety TAKE 1 TABLET BY MOUTH 2 TIMES DAILY NEEDED. 60 tablet 0 Active Active Problems Problem Noted Date Diagnosed Date Seasonal allergic rhinitis due to pollen 020 Vision loss of right eye 11/20/2017 Acid reflux disease 03/08/2016 Anxiety 10/12/2015 Benign essential hypertension 10/12/2015 Hyperlipidemia 10/12/2015 Resolved Problems Problem Noted Date Diagnosed Date Resolved Date Allergic rhinitis 05/14/2018 10/25/2018 Hand pain 05/14/2018 10/25/2018 Impaired fasting glucose 11/15/2016 Immunizations Immunization Administration Dates Next Due Flucelvax 6 Months+ (Prefilled Syringe) 07/08/20 19 Shingrix 05/10/2020 Family History Medical History Relation Comments Heart Disease Father Hypertension Father Lung Disease Father Alzheimers Mother Diabetes Mother Hypertension Mother Relation Status Comments Father Mother Social History Tobacco Use Types Packs/Day Years Used Date Smoking Tobacco: Former Smokeless Tobacco: Never Alcohol Use Standard Drinks/Week Comments No 0 (1 standard drink = 0.6 oz pur e alcohol) AUDIT-C Answer Date Recorded Frequency of Alcohol Consumption Never 10/25/2018 Average Number of Drinks Not on file 019 Frequency of Binge Drinking Not on file 10/09 PHQ-2 Answer Date Recorded PHQ-2 Score - If the patient scores above 3, please move on to questions 3-9 0 05/26/2020 Sex and Gender Information Value Date Recorded Sex Assigned at Male 04/01/2025 12:40 PM CDT Legal Sex Male 5:56 PM CDT Gender Identity Male 04/01/2025 12:40 PM CDT Sexual Orientation Not on file Last Filed Vital Signs Vital Sign Reading Time Taken Comments Blood Pressure 119/76 04/01/2025 3:00 PM CDT Pulse 70 04/01/2025 3:00 PM CDT Temperature 36.2 C (97.1 F) 04/01/2025 3:00 PM CDT Respiratory Rate 16 04/01/2025 3:00 PM CDT Oxygen Saturation 94% 04/01/2025 3:00 PM CDT Inhaled Oxygen Concentration - - Weight 79.8 kg (176 lb) 04/01/2025 12:32 PM CDT Height 185.4 cm (6' 1) 04/01/2025 12:32 PM CDT Body Mass Index 23.22 04/01/2025 12:32 PM CDT Plan of Treatment Health Maintenance Due Date Last Done Comments DTaP, Tdap and Td Vaccines (1 - Tdap) 1976 Pneumococcal Vaccine: 50+ Years (1 of 1 - PCV) 2007 Colorectal Cancer Screening Colonoscopy (10 Years) 09/07/2019 09/07/2016, 09/07/2016 Zoster Vaccines (2 of 2) 07/05/2020 05/10/2020 Annual Medicare Wellness Visit 2022 COVID-19 Vaccine (1 - season) 2025 Influenza Adult (#1) 2025 07/08/2019 RSV Immunization or 60+ Years (1 - 1-dose 75+ series) 2032 Hepatitis C Completed 07/08/2019 AAA SCREENING Completed 04/01/2025, 12/2024, 01/07/2025, Additional history exists Hepatitis A Vaccines Aged Out No long er eligible based on patient's age to complete this topic Meningococcal B Vaccine Aged Out No l onger eligible based on patient's age to complete this topic Meningococcal Vaccine Aged Out No landon gay eligible based on patient's age to complete this topic RSV Immunizations Under 20 Months Aged Out No longer eligible based on patient's age to complete this topic Procedures Procedure Name Priority Date/Time Associated Diagnosis Comments CT ABD+PEL W CON STAT 04/01/2025 2:08 PM CDT HEPATITIS C ANTIBODY Routine 07/08/2019 10:54 AM CDT Screening examination for poliomyelitis Mixed hyperlipidemia Essential hypertension, malignant Diabetes mellitus, latent COLONOSCOPY Routine 09/07/2016 12:00 AM [employer] from Last 3 Months or Most Recently Relevant to Health Maintenance Results * CT ABD+PEL W CON (04/01/2025 2:08 PM CDT) Anatomical Region Laterality Modality Abdomen Computed Tomogra phy 04/01/2025 2:24 PM CDT Impressions 04/01/2025 2:30 PM CDT IMPRESSION: 1. There is diffuse wall thickening of the anus as well as the rectum. There is diffuse wall thickening present in the region the sigmoid colon. There is a small area of narrowing that is present at the junction of the sigmoid colon and the rectum. The findings may relate to inflammatory or infectious change. Neoplasm is not excluded. Colonoscopy is recommended in light of the ongoing constipation changes. There is additional colonic wall thickening that is present in the region of the proximal transverse colon. This may be due to inflammatory, infectious or neoplastic change. 2. There is an additional lesion present about the upper pole of the right kidney laterally. This measures approximately 27-31 Hounsfield units. This is indeterminate. Elective renal ultrasound recommended for further evaluation. Ordered By: TIMOTHY JUAREZ Interpreted By: Afshin Dunbar MD, 04/01/2025 2:24 PM Narrative 04/01/2025 2:30 PM CDT [facility] [address] [place] [address] Procedure(s): CT ABD+PEL W CON Date of service: 04/01/2025 2:02 PM Provided clinical information: 69 years, Male, constipation intermittent constipation since September. Procedure and materials: Helical images of the abdomen and pelvis are obtained from superior to the diaphragm to inferior to the pubic symphysis. Examination is performed after intravenous contrast. 80 mL Isovue-370. A dose lowering technique was used for this procedure, which may include, but is not limited to, dose reduction technique, automated exposure control, iterative reconstruction, ALARA (As Low As Reasonably Achievable), or Image Gently techniques. Comparison studies: None. Findings: CT abdomen and pelvis: Lung Bases: No pleural effusions or consolidations. Adrenals:Normal. Spleen:Calcifications are present due to prior disease. Gallbladder and Biliary system:Prior cholecystectomy. Pancreas:Unremarkable. Liver:Unremarkable. Kidneys:Hypoattenuating right renal lesion measuring approximately 7 Hounsfield units. This is consistent with small cysts. There is a similar lesion present in the upper pole of the right kidney medially measuring 16 Hounsfield units. There is a hypoattenuating lesion in the inferior pole left kidney measuring approximately 5 Hounsfield units. This consistent with a cyst. No further follow-up is recommended per current imaging consensus recommendations. There is an additional lesion present about the upper pole of the right kidney laterally. This measures approximately 27-31 Hounsfield units. This is indeterminate. Elective renal ultrasound recommended for further evaluation. Bowel:There is diffuse wall thickening of the anus as well as the rectum. There is diffuse wall thickening present in the region the sigmoid colon. There is a small area of narrowing that is present at the junction of the sigmoid colon and the rectum. The findings may relate to inflammatory or infectious change. Neoplasm is not excluded. Colonoscopy is recommended in light of the ongoing constipation changes. There is additional colonic wall thickening that is present in the region of the proximal transverse colon. No small bowel dilatation is present. Visualized appendix is unremarkable. Aorta and Retroperitoneum:No enlarged lymph nodes. Aorta is not aneurysmal. Pelvic Organs:Urinary bladder is unremarkable. Prostate is not enlarged. Bone/Musculoskeletal: Diffuse degenerative changes of the lumbar spine. Free fluid: None Procedure Note Afshin Dunbar MD - 04/01/2025 [facility] [address] [place] [address] Procedure(s): CT ABD+PEL W CON Date of service: 04/01/2025 2:02 PM Provided clinical information: 69 years, Male, constipationintermittent constipation since September. Procedure and materials: Helical images of the abdomen and pelvis areobtained from superior to the diaphragm to inferior to the pubicsymphysis. Examination is performed after intravenous contrast. 80 mLIsovue-370. A dose lowering technique was used for this procedure, which may include,but is not limited to, dose reduction technique, automated exposurecontrol, iterative reconstruction, ALARA (As Low As ReasonablyAchievable), or Image Gently techniques. Comparison studies: None. Findings: CT abdomen and pelvis: Lung Bases: No pleural effusions or consolidations. Adrenals:Normal. Spleen:Calcifications are present due to prior disease. Gallbladder and Biliary system:Prior cholecystectomy. Pancreas:Unremarkable. Liver:Unremarkable. Kidneys:Hypoattenuating right renal lesion measuring approximately 7Hounsfield units. This is consistent with small cysts. There is a similarlesion present in the upper pole of the right kidney medially measuring 16Hounsfield units. There is a hypoattenuating lesion in the inferior poleleft kidney measuring approximately 5 Hounsfield units. This consistentwith a cyst. No further follow-up is recommended per current imagingconsensus recommendations. There is an additional lesion present about the upper pole of the rightkidney laterally. This measures approximately 27-31 Hounsfield units. Thisis indeterminate. Elective renal ultrasound recommended for furtherevaluation. Bowel:There is diffuse wall thickening of the anus as well as the rectum.There is diffuse wall thickening present in the region the sigmoid colon.There is a small area of narrowing that is present at the junction of thesigmoid colon and the rectum. The findings may relate to inflammatory orinfectious change. Neoplasm is not excluded. Colonoscopy is recommended inlight of the ongoing constipation changes. There is additional colonicwall thickening that is present in the region of the proximal transversecolon. No small bowel dilatation is present. Visualized appendix isunremarkable. Aorta and Retroperitoneum:No enlarged lymph nodes. Aorta is notaneurysmal. Pelvic Organs:Urinary bladder is unremarkable. Prostate is not enlarged. Bone/Musculoskeletal: Diffuse degenerative changes of the lumbar spine. Free fluid: None IMPRESSION: 1. There is diffuse wall thickening of the anus as well as the rectum.There is diffuse wall thickening present in the region the sigmoid colon.There is a small area of narrowing that is present at the junction of thesigmoid colon and the rectum. The findings may relate to inflammatory orinfectious change. Neoplasm is not excluded. Colonoscopy is recommended inlight of the ongoing constipation changes. There is additional colonicwall thickening that is present in the region of the proximal transversecolon. This may be due to inflammatory, infectious or neoplastic change. 2. There is an additional lesion present about the upper pole of theright kidney laterally. This measures approximately 27-31 Hounsfieldunits. This is indeterminate. Elective renal ultrasound recommended forfurther evaluation. Ordered By: TIMOTHY JUAREZ Interpreted By: Afshin Dunbar MD, 04/01/2025 2:24 PM Timothy Juarez MD CT Final Result * HEPATITIS C ANTIBODY (07/08/2019 10:54 AM CDT) HEPATITIS C AB NON-REACTI VE NON-REACTI VE 07/08/2019 2:54 PM CDT [facility] 07/08/2019 10:5 4 AM CDT Yvonne Marquez N[facility]SE [facility] Final Result [facility] [address] [place] [address], * Colonoscopy (09/07/2016 12:00 AM [employer]) 09/07/2016 09/07/2016 Narrative TOUCHWORKS TO EPIC CONVERSION - 05/07/2018 11:54 AM CDT polyps, tubular adenoma Procedure Note , Generic MD Pawel - 01/22/2019 polyps, tubular adenoma us Generic Conversion Md [facility] PROCEDURE ORDERABLES Final Result TOUCHWORKS TO EPIC CONVERSION from Last 3 Months or Most Recently Relevant to Health Maintenance Insurance [facility] MEDICARE Care Teams Management Supervisor Relationship Specialty Start Date End Date Jonathan Blanchard MD [address] [place] [address] PCP - General INTERNAL MEDICINE 04/01/25
--- OUTSIDE RECORDS SUMMARY | 2025-08-20 10:13 | XMS_ITS | Patient Health Record ---
Author Organization [facility] Address [address] [place], [place] [id number] Care Team Providers Care Environmental Assistant Name Role Phone PIERRE Coffman Unavailable Renetta Sorenson Unavailable Unavailable Reason For Referral No Information Social History Social History Additional Details Category Social Info Options Details Migrated Social History Migrated Social History History of tobacco use : , Smoking Status : Never smoked Plan Of Treatment No Information Insurance Providers Payer Name Payer Address Payer Phone Subscriber Number Group Number Insured Name Patient Relationship to Insured Coverage Start Date Coverage End Date [facility]) [address] [place], [place] [id number] JOSE G SONG LT Self - patient is the insured
--- OUTSIDE RECORDS SUMMARY | 2025-08-20 10:13 | XMS_ITS | Data Portability ---
[facility] [address] [place] [address] Care Team Providers Care Coil Connector Name Role Phone RONAN BLANCHARD Primary Care Provider Assessment Encounter Date Assessment Date Assessment LastModified by Organization Details LastModified Time 11/18/2024 11/18/2024 healthy lifestyle care instructions. Bring up-to-date on his pneumococcal vaccine erectile dysfunction tadalafil dyslipidemia prudent diet and simvastatin GERD famotidine follow up months [email or web address] Not available 11/18/2024 23:41:29 01/06/2025 01/06/2025 my suggestion if indeed psychiatric professional believes that ECT maybe the best way to go that he be evaluated at [facility] Emergency room where they could get timely psychiatric diagnosis also timely workup for his weight loss if anything else is needed. 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 venous duplexes at [place] in the lower extremities healthy lifestyle care instructions check sleep study follow up with me in 1 month [email or web address] Not available 03/02/2025 15:44:09 04/07/2025 04/07/2025 Some thickening of the anus was seen on the CT scan he just had large GI workup at [place] I believe upper and lower endoscopies included we will go ahead and have him take the fiber I will add lactulose 15 cc daily and hopefully that will help him out keep his regular follow up if he stays constipated she will call back and we may have to get GI involved Not available 04/07/2025 13:41:14 06/30/2025 06/30/2025 Constipation kulkarni maybe a little bit better we will wait for him to see the neurologist and also follow up with Psychiatry continue with other medications for now I believe they got him set up with a split night sleep study as part of the workup for his mental problems see me back in 4 months [email or web address] Not available 07/13/2025 16:47:41 Plan of Treatment Reminders Order Date Submit Date Provider Last Modified By Organization Details Last Modified Time Details Appointments ANY 15 2025 01:15P M Ronan Blanchard MD Not available Not available Not available Lab None record ed. Referral None record ed. Procedures polyso mnogra phy, diagno stic (PROC) 2024 025 [facility], [address] [place], [address], 03/07/2025 15:02:53 Surgeries None record ed. Imaging None record ed. Medication Orders lactul ose 10 gram/1 5 mL oral soluti on 2024 025 [id number], [address] [place], [address], 04/29/2025 10:59:30 Eliqui s 5 mg tablet [address]/Pharmacy #[id number], [address] [place], [address], 02/24/2025 15:52:42 Patient TargetsNo targets recorded. Patient Instructions Encounter Date Encounter Id Patient Instructions Last Modified By Organization Details Last Modified Time 11/18/2024 [id number] A healthy lifestyle: care instructions [email or web address] Not available 11/18/2024 15:34:02 02/24/2025 [id number] A healthy lifestyle: care instructions [email or web address] Not available 02/24/2025 15:52:42 06/30/2025 [id number] A healthy lifestyle: care instructions [email or web address] Not available 06/30/2025 15:36:50 Reason for Referral None Reported. Results Created Date Observation Date Name Description Value Unit Range Abnormal Flag Note LastModifiedBy Organization Detail LastModifiedTime 12/17/1912/16/2024 Drugs ident ified in Urine by Scree n metho d amphetamines [presence] in urine Negati ve normal Not Available Not Available 16:43:17 12/17/19 25 12/16/2024 Drugs ident ified in Urine by Scree n metho d barbiturates [presence] in urine Negati ve normal Not Available Not Available 16:43:17 12/17/19 25 12/16/2024 Drugs ident ified in Urine by Scree n metho d benzodiazepi bhavya [presence] in urine Negati ve normal Not Available Not Available 16:43:17 12/17/19 25 12/16/2024 Drugs ident ified in Urine by Scree n metho d cocaine [presence] in urine Negati ve normal Not Available Not Available 16:43:17 12/17/19 25 12/16/2024 Drugs ident ified in Urine by Scree n metho d fentanyl Negati ve normal Not Available Not Available 16:43:17 12/17/19 25 12/16/2024 Drugs ident ified in Urine by Scree n metho d methadone [presence] in urine Negati ve normal Not Available Not Available 16:43:17 12/17/19 25 12/16/2024 Drugs ident ified in Urine by Scree n metho d opiates [presence] in urine Negati ve normal Not Available Not Available 16:43:17 12/17/19 25 12/16/2024 Drugs ident ified in Urine by Scree n metho d oxycodone [presence] in urine Negati ve normal Not Available Not Available 16:43:17 12/17/19 25 12/16/2024 Drugs ident ified in Urine by Scree n metho d phencyclidin e [presence] in urine Negati ve normal Not Available Not Available 16:43:17 12/17/19 25 12/16/2024 Drugs ident ified in Urine by Omar n rajendra d cannabinoids [presence] in urine Negati ve normal Not Available Not Available 16:43:17 12/17/19 25 12/16/2024 Urina lysis compl ete W Refle x Cultu re panel - Urine color of urine by auto Color of urine normal Not Available Not Available 16:43:17 12/17/19 25 12/16/2024 Urina lysis compl ete W Refle x Cultu re panel - Urine appearance of urine Urine specim en normal Not Available Not Available 16:43:17 12/17/19 25 12/16/2024 Urina lysis compl ete W Refle x Cultu re panel - Urine specific gravity of urine by test strip 1.032 1 low: 1.001h igh: 1.03 high Not Available Not Available 12/16/2024 16:43:17 12/17/19 25 12/16/2024 Urina lysis compl ete W Refle x Cultu re panel - Urine pH of urine by test strip 5.5 pH_un its low: 5pH unitsh igh: 9pH units normal Not Available Not Available 12/16/2024 16:43:17 12/17/19 25 12/16/2024 Urina lysis compl ete W Refle x Cultu re panel - Urine leukocytes [#/volume] in urine by test strip Leukoc yte estera se measur ement text: negati ve normal Not Available Not Available 12/16/2024 16:43:17 12/17/1912/16/2024 Urina lysis compl ete W Refle x Cultu re panel - Urine nitrite [presence] in urine by test strip Labora tory test findin g text: negati ve normal Not Available Not Available 12/16/2024 16:43:17 12/17/19 25 12/16/2024 Urina lysis compl ete W Refle x Cultu re panel - Urine protein [mass/volume ] in urine by test strip 30 mg/dL text: negati ve Not Available Not Available 12/16/2024 16:43:17 12/17/19 25 12/16/2024 Urina lysis compl ete W Refle x Cultu re panel - Urine glucose [moles/volum e] in urine by test strip Labora tory test findin g text: normal normal Not Available Not Available 12/16/2024 16:43:17 12/17/19 25 12/16/2024 Urina lysis compl ete W Refle x Cultu re panel - Urine ketones [moles/volum e] in urine by test strip 40 mg/dL text: negati ve Not Available Not Available 12/16/2024 16:43:17 12/17/19 25 12/16/2024 Urina lysis compl ete W Refle x Cultu re panel - Urine urobilinogen [mass/volume ] in urine by test strip Urobil inogen measur ement, urine text: normal normal Not Available Not Available 12/16/2024 16:43:17 12/17/19 25 12/16/2024 Urina lysis compl ete W Refle x Cultu re panel - Urine bilirubin.to michael [mass/volume ] in urine by test strip Urine dipsti ck for biliru bin text: negati ve normal Not Available Not Available 12/16/2024 16:43:17 12/17/1912/16/2024 Urina lysis compl ete W Refle x Cultu re panel - Urine erythrocytes [#/volume] in urine by test strip Urine dipsti ck for blood text: negati ve normal Not Available Not Available 12/16/2024 16:43:17 12/17/1912/16/2024 Urina lysis compl ete W Refle x Cultu re panel - Urine leukocytes [#/area] in urine sediment by automated count Leukoc ytes in urine low: 0/[hpf ]high: 8/[hpf ] normal Not Available Not Available 12/16/2024 16:43:17 12/17/19 25 12/16/2024 Urina lysis compl ete W Refle x Cultu re panel - Urine erythrocytes [#/area] in urine sediment by automated count Blood in urine low: 0/[hpf ]high: 4/[hpf ] normal Not Available Not Available 12/16/2024 16:43:17 12/17/19 25 12/16/2024 Urina lysis compl ete W Refle x Cultu re panel - Urine bacteria [presence] in urine by automated Urine findin g normal Not Available Not Available 16:43:17 12/17/19 25 12/16/2024 Urina lysis compl ete W Refle x Cultu re panel - Urine mucus [#/area] in urine sediment by automated count Urine findin g Not Available Not Available 16:43:17 12/17/19 25 12/16/2024 Urina lysis compl ete W Refle x Cultu re panel - Urine epithelial cells.squamo us [#/area] in urine sediment by automated count Urine findin g Not Available Not Available 16:43:17 12/17/19 25 12/16/2024 Urina lysis compl ete W Refle x Cultu re panel - Urine hyaline casts [#/area] in urine sediment by automated count Urine findin g text: none seen Not Available Not Available 12/16/2024 16:43:17 12/17/19 25 12/16/2024 Thyro tropi n [Unit s/vol ume] in Serum or Plasm a by Detec tion limit <= 0.005 mIU/L thyrotropin [units/volum e] in serum or plasma by detection limit <= 0.005 mIU/L 1.54 uIU/m L low: 0.465u IU/mLh igh: 4.68uI U/mL normal Not Available Not Available 12/16/2024 16:43:17 12/17/19 25 12/16/2024 Influ nicky virus A and B and SARS- CoV-2 (COVI D-19) and SARS- relat ed CoV RNA panel - Respi rator y syste m speci men by PHIL with probe detec tion sars-cov-2 (covid-19) RNA [presence] in specimen by PHIL with probe detection Negati ve normal Not Available Not Available 16:43:17 12/17/19 25 12/16/2024 Influ nicky virus A and B and SARS- CoV-2 (COVI D-19) and SARS- relat ed CoV RNA panel - Respi rator y syste m speci men by PHIL with probe detec tion influenza virus A RNA [presence] in respiratory system specimen by PHIL with probe detection Negati ve normal Not Available Not Available 16:43:17 12/17/1912/16/2024 Influ nicky virus A and B and SARS- CoV-2 (COVI D-19) and SARS- relat ed CoV RNA panel - Respi rator y syste m speci men by PHIL with probe detec tion influenza virus B RNA [presence] in respiratory system specimen by PHIL with probe detection Negati ve normal Not Available Not Available 16:43:17 12/17/19 25 12/16/2024 Salic ylate s [Mass /volu me] in Serum or Plasm a salicylates [mass/volume ] in serum or plasma <1.0 low: 2.8mg/ dLhigh : 20mg/d L low Not Available Not Available 12/16/2024 16:43:17 12/17/19 25 12/16/2024 Magne sium [Mass /volu me] in Serum or Plasm a magnesium [mass/volume ] in serum or plasma 2.4 mg/dL low: 1.6mg/ dLhigh : 2.3mg/ dL high Not Available Not Available 12/16/2024 16:43:17 12/17/19 25 12/16/2024 Panchito ol [Mass /volu me] in Serum or Plasm a ethanol [mass/volume ] in serum or plasma <10 low: 0mg/dL high: 10mg/d L normal Not Available Not Available 12/16/2024 16:43:17 12/17/19 25 12/16/2024 Aceta minop hen [Mass /volu me] in Serum or Plasm a acetaminophe n [mass/volume ] in serum or plasma <10 low: 10mcg/ mLhigh : 30mcg/ mL normal Not Available Not Available 12/16/2024 16:43:17 12/17/19 25 12/16/2024 Compr ehens nadia metab olic 2000 panel - Serum or Plasm a sodium [moles/volum e] in blood 139 mmol/ L low: 137mmo l/Lhig h: 145mmo l/L normal Not Available Not Available 12/16/2024 16:43:17 12/17/19 25 12/16/2024 Compr [employer] nadia metab olic 1999 panel - Serum or Plasm a potassium [moles/volum e] in serum or plasma 4 mmol/ L low: 3.5mmo l/Lhig h: 5.1mmo l/L normal Not Available Not Available 12/16/2024 16:43:17 12/17/19 25 12/16/2024 Compr ehens nadia metab olic 1999 panel - Serum or Plasm a chloride [moles/volum e] in serum or plasma 113 mmol/ L low: 98mmol /Lhigh : 107mmo l/L high Not Available Not Available 12/16/2024 16:43:17 12/17/19 25 12/16/2024 Compr ehens nadia metab olic 1999 panel - Serum or Plasm a carbon dioxide, total [moles/volum e] in serum or plasma 19 mmol/ L low: 22mmol /Lhigh : 30mmol /L low Not Available Not Available 12/16/2024 16:43:17 12/17/19 25 12/16/2024 Compr [employer] nadia metab olic 1999 panel - Serum or Plasm a anion gap in serum or plasma 11 mmol/ L low: 14mmol /Lhigh : 22mmol /L low Not Available Not Available 12/16/2024 16:43:17 12/17/19 25 12/16/2024 Compr [employer] nadia metab olic 1999 panel - Serum or Plasm a glucose [mass/volume ] in serum or plasma 99 mg/dL low: 70mg/d Lhigh: 99mg/d L normal Not Available Not Available 12/16/2024 16:43:17 12/17/19 25 12/16/2024 Compr Kwan[employer] nadia [employer] olic 1999 panel - Serum or Plasm a urea nitrogen [mass or moles/volume ] in serum or plasma 17 mg/dL low: 8mg/dL high: 19mg/d L normal Not Available Not Available 12/16/2024 16:43:17 12/17/19 25 12/16/2024 Compr [employer] nadia metab olic 1999 panel - Serum or Plasm a creatinine [mass/volume ] in serum or plasma 1.19 mg/dL low: 0.66mg /dLhig h: 1.25mg /dL normal Not Available Not Available 12/16/2024 16:43:17 12/17/19 25 12/16/2024 [facility] [employer] 1999 panel - Serum or Plasm a glomerular filtration rate/1.73 sq M.predicted [volume rate/area] in serum, plasma or blood >60 normal Not Available Not Available 12/07 16:43:17 12/17/19 25 12/16/2024 [facility] [employer] [facility] 1999 panel - Serum or Plasm a alkaline phosphatase [enzymatic activity/vol ume] in serum or plasma 60 U/L low: 38U/Lh igh: 126U/L normal Not Available Not Available 12/16/2024 16:43:17 12/17/19 25 12/16/2024 [facility] [employer] 1999 panel - Serum or Plasm a alanine aminotransfe rase [enzymatic activity/vol ume] in serum or plasma 61 U/L low: 0U/Lhi gh: 50U/L high Not Available Not Available 12/16/2024 16:43:17 12/17/19 25 12/16/2024 [facility] [employer] nadia [employer] 1999 panel - Serum or Plasm a aspartate aminotransfe rase [enzymatic activity/vol ume] in serum or plasma 39 U/L low: 15U/Lh igh: 46U/L normal Not Available Not Available 12/16/2024 16:43:17 12/17/19 25 12/16/2024 [facility] [employer] nadia [employer] 1999 panel - Serum or Plasm a bilirubin.to michael [mass/volume ] in serum or plasma 0.9 mg/dL low: 0.2mg/ dLhigh : 1.3mg/ dL normal Not Available Not Available 12/16/2024 16:43:17 12/17/19 25 12/16/2024 [facility] [employer] 1999 panel - Serum or Plasm a calcium [mass/volume ] in serum or plasma 9.4 mg/dL low: 8.4mg/ dLhigh : 10.2mg /dL normal Not Available Not Available 12/16/2024 16:43:17 12/17/19 25 12/16/2024 [facility] [employer] [facility] 1999 panel - Serum or Plasm a protein [mass/volume ] in serum or plasma 7.1 g/dL low: 6.3g/d Lhigh: 8.2g/d L normal Not Available Not Available 12/16/2024 16:43:17 12/17/19 25 12/16/2024 [facility] [employer] [facility] 1999 panel - Serum or Plasm a albumin [mass/volume ] in serum or plasma 4.6 g/dL low: 3g/dLh igh: 4.4g/d L high Not Available Not Available 12/16/2024 16:43:17 12/17/19 25 [facility] [employer] [facility] 1999 panel - Serum or Plasm a globulin [mass/volume ] in serum 2.5 g/dL low: 2.6g/d Lhigh: 4.2g/d L low Not Available Not Available 12/16/2024 16:43:17 12/17/19 25 12/16/2024 [facility] 1999 panel - Serum or Plasm a albumin/glob ulin [mass ratio] in serum or plasma 1.8 ratio low: 1ratio high: 2ratio normal Not Available Not Available 12/16/2024 16:43:17 12/17/19 25 12/16/2024 [employer] al panel - Blood leukocytes [#/volume] in blood by automated count 7.7 x10'3 /uL low: 4.2x10 '3/uLh igh: 10.8x1 0'3/uL normal Not Available Not Available 12/16/2024 16:43:17 12/17/19 25 12/16/2024 CBC W [employer] al panel - Blood erythrocytes [#/volume] in blood by automated count 5.04 x10'6 /uL low: 4.1x10 '6/uLh igh: 5.8x10 '6/uL normal Not Available Not Available 12/16/2024 16:43:17 12/17/19 25 12/16/2024 CBC W [employer]iffe [employer] al panel - Blood hemoglobin [mass/volume ] in blood 16.6 g/dL low: 13.2g/ dLhigh : 17g/dL normal Not Available Not Available 12/16/2024 16:43:17 12/17/19 25 12/16/2024 CBC W Auto [employer]iffe [employer]i al panel - Blood hematocrit [volume fraction] of blood by automated count 47.5 % low: 39.3%h igh: 50% normal Not Available Not Available 12/16/2024 16:43:17 12/17/19 25 12/16/2024 CBC W [employer] panel - Blood MCV [entitic volume] by automated count 94.2 fL low: 80fLhi gh: 97fL normal Not Available Not Available 12/16/2024 16:43:17 12/17/19 25 12/16/2024 CBC W [employer] panel - Blood MCH [entitic mass] by automated count 32.9 pg low: 27pghi gh: 33pg normal Not Available Not Available 12/16/2024 16:43:17 12/17/19 25 12/16/2024 CBC W [employer]i [employer] panel - Blood MCHC [mass/volume ] by automated count 34.9 g/dL low: 31g/dL high: 36g/dL normal Not Available Not Available 12/16/2024 16:43:17 12/17/19 25 12/16/2024 CBC W [employer] panel - Blood erythrocyte distribution width [ratio] 12.5 % low: 11.8%h igh: 15.5% normal Not Available Not Available 12/16/2024 16:43:17 12/17/19 25 12/16/2024 CBC W [employer] panel - Blood platelets [#/volume] in blood by automated count 181 x10'3 /uL low: 150x10 '3/uLh igh: 400x10 '3/uL normal Not Available Not Available 12/16/2024 16:43:17 12/17/19 25 12/16/2024 CBC W [employer] panel - Blood platelet mean volume [entitic volume] in blood by automated count 9.7 fL low: 9fLhig h: 12.4fL normal Not Available Not Available 12/16/2024 16:43:17 12/17/19 25 12/16/2024 CBC W [employer] panel - Blood neutrophils/ 100 leukocytes in blood 68.2 % low: 39%hig h: 72% normal Not Available Not Available 12/16/2024 16:43:17 12/17/19 25 12/16/2024 CBC W [employer] panel - Blood lymphocytes/ 100 leukocytes in blood 21.8 % low: 16%hig h: 47% normal Not Available Not Available 12/16/2024 16:43:17 12/17/19 25 12/16/2024 CBC W [employer]i [employer] panel - Blood monocytes/10 0 leukocytes in blood 7.5 % low: 5%high : 12% normal Not Available Not Available 12/16/2024 16:43:17 12/17/19 25 12/16/2024 CBC W [employer] panel - Blood eosinophils [#/volume] in blood 1.4 % low: 1%high : 7% normal Not Available Not Available 12/16/2024 16:43:17 12/17/19 25 12/16/2024 CBC W [employer] panel - Blood basophils/10 0 leukocytes in blood 0.7 % low: 0%high : 2% normal Not Available Not Available 12/16/2024 16:43:17 12/17/19 25 12/16/2024 CBC W [employer] al panel - Blood immature granulocytes /100 leukocytes in blood 0.4 % low: 0%high : 0.5% normal Not Available Not Available 12/16/2024 16:43:17 12/17/19 25 12/16/2024 CBC W [employer] panel - Blood neutrophils [#/volume] in blood 5.24 x10'3 /uL low: 1.5x10 '3/uLh igh: 8x10'3 /uL normal Not Available Not Available 12/16/2024 16:43:17 12/17/19 25 12/16/2024 CBC W [employer] panel - Blood lymphocytes [#/volume] in blood 1.68 x10'3 /uL low: 1.07x1 0'3/uL high: 3.43x1 0'3/uL normal Not Available Not Available 12/16/2024 16:43:17 12/17/19 25 12/16/2024 CBC W Auto [employer]i al panel - Blood monocytes [#/volume] in blood 0.58 x10'3 /uL low: 0.29x1 0'3/uL high: 0.99x1 0'3/uL normal Not Available Not Available 12/16/2024 16:43:17 12/17/19 25 12/16/2024 CBC W Auto Diffe renti al panel - Blood eosinophils [#/volume] in blood 0.11 x10'3 /uL low: 0.02x1 0'3/uL high: 0.53x1 0'3/uL normal Not Available Not Available 12/16/2024 16:43:17 12/17/19 25 12/16/2024 CBC W [employer] panel - Blood basophils [#/volume] in blood 0.05 x10'3 /uL low: 0.01x1 0'3/uL high: 0.08x1 0'3/uL normal Not Available Not Available 12/16/2024 16:43:17 12/17/19 25 12/16/2024 CBC W [employer] al panel - Blood immature granulocytes [#/volume] in blood 0.03 x10'3 /uL low: 0x10'3 /uLhig h: 0.05x1 0'3/uL normal Not Available Not Available 12/16/2024 16:43:17 12/17/19 25 12/16/2024 CBC W Auto [employer] al panel - Blood nucleated erythrocytes /100 leukocytes [ratio] in blood 0 % high: 0% normal Not Available Not Available 12/16/2024 16:43:17 12/17/19 25 12/16/2024 CBC W [employer] panel - Blood nucleated erythrocytes [#/volume] in blood by automated count 0 x10'3 /uL normal Not Available Not Available 12/17/19 16:43:17 04/01/20 25 04/01/2025 Compr ehens nadia metab olic 1999 panel - Serum or Plasm a glucose [mass/volume ] in serum or plasma 107 text: 70 - 99 mg/dL high Not Available Not Available 04/02/2025 14:30:54 04/01/20 25 04/01/2025 Compr ehens nadia metab olic 1999 panel - Serum or Plasm a urea nitrogen [mass/volume ] in serum or plasma 14 text: 7 - 18 mg/dL Not Available Not Available 04/02/2025 14:30:54 04/01/20 25 04/01/2025 Compr [employer] nadia [employer] 1999 panel - Serum or Plasm a creatinine [mass/volume ] in serum or plasma 1.03 text: 0.7 - 1.3 mg/dL Not Available Not Available 04/02/2025 14:30:54 04/01/20 25 04/01/2025 Compr [employer] nadia [employer] olic 1999 panel - Serum or Plasm a sodium [moles/volum e] in serum or plasma 140 text: 136 - 145 mmol/L Not Available Not Available 04/02/2025 14:30:54 04/01/20 25 04/01/2025 Compr [employer] nadia [employer] 1999 panel - Serum or Plasm a potassium [moles/volum e] in serum or plasma 3.9 text: 3.5 - 5.1 mmol/L Not Available Not Available 04/02/2025 14:30:54 04/01/20 25 04/01/2025 Compr [employer] nadia [employer] olic 1999 panel - Serum or Plasm a chloride [moles/volum e] in serum or plasma 105 text: 100 - 108 mmol/L Not Available Not Available 04/02/2025 14:30:54 04/01/20 25 04/01/2025 Compr [employer] 1999 panel - Serum or Plasm a carbon dioxide, total [moles/volum e] in serum or plasma 27.9 text: 21 - 32 mmol/L Not Available Not Available 04/02/2025 14:30:54 04/01/20 25 04/01/2025 Compr [employer] nadia [employer] olic 1999 panel - Serum or Plasm a calcium [mass/volume ] in serum or plasma 9.2 text: 8.5 - 10.1 mg/dL Not Available Not Available 04/02/2025 14:30:54 04/01/20 25 04/01/2025 Compr [employer] 1999 panel - Serum or Plasm a bilirubin.to michael [mass/volume ] in serum or plasma 0.7 text: 0.2 - 1.2 mg/dL Not Available Not Available 04/02/2025 14:30:54 04/01/20 25 04/01/2025 Compr [employer] [facility] 2000 panel - Serum or Plasm a protein [mass/volume ] in serum or plasma 6.5 text: 6.4 - 8.2 g/dL Not Available Not Available 04/02/2025 14:30:54 04/01/20 25 04/01/2025 [facility] 1999 panel - Serum or Plasm a albumin [mass/volume ] in serum or plasma 3.5 text: 3.4 - 5.0 g/dL Not Available Not Available 04/02/2025 14:30:54 04/01/20 25 04/01/2025 [facility] 1999 panel - Serum or Plasm a aspartate aminotransfe rase [enzymatic activity/vol ume] in serum or plasma 23 U/L low: 15U/Lh igh: 37U/L Not Available Not Available 04/02/2025 14:30:54 04/01/20 25 04/01/2025 [facility] 1999 panel - Serum or Plasm a alanine aminotransfe rase [enzymatic activity/vol ume] in serum or plasma 57 U/L low: 16U/Lh igh: 60U/L Not Available Not Available 04/02/2025 14:30:54 04/01/20 25 04/01/2025 [facility] 1999 panel - Serum or Plasm a alkaline phosphatase [enzymatic activity/vol ume] in serum or plasma 62 U/L low: 50U/Lh igh: 136U/L Not Available Not Available 04/02/2025 14:30:54 04/01/20 25 04/01/2025 [place] [id number] panel - Serum or Plasm a anion gap in serum or plasma by calculation 7.1 text: 5 - 15 mmol/L Not Available Not Available 04/02/2025 14:30:54 04/01/20 25 04/01/2025 [facility] 1999 panel - Serum or Plasm a urea nitrogen/cre atinine [mass ratio] in serum or plasma 13.6 low: 6high: 26 Not Available Not Available 04/02/2025 14:30:54 04/01/20 25 04/01/2025 [facility] 1999 panel - Serum or Plasm a albumin/glob ulin [mass ratio] in serum or plasma 1.2 text: 1.0 - 2.0 ratio Not Available Not Available 04/02/2025 14:30:54 04/01/20 25 04/01/2025 Compr ehens nadia metab olic 1999 panel - Serum or Plasm a glomerular filtration rate [volume rate/area] in serum, plasma or blood by creatinine-b ased formula (CKD-epi 2020)/1.73 sq M 80 text: >90 mL/min /1.73 M2 low NOTE: eGFR is not calcu lated for patie nts <18 years of age. This is an estim ated GFR calcu latio n using the new CKD EPI creat inine equat ion witho ut race and so does not requi re a corre ction facto r for race. This estim ated GFR shoul d not be used for calcu latin g drug doses . Not Available Not Available 04/02/2025 14:30:54 04/01/20 25 04/01/2025 Compr ehens nadia metab olic 1999 panel - Serum or Plasm a interpretati on and review of laboratory results Abnorm al Not Available Not Available 14:30:54 04/01/20 25 04/01/2025 CBC W Auto Diffe renti al panel - Blood leukocytes [#/volume] in blood by automated count 6.74 text: 4.4 - 11.0 x10'3/ uL Not Available Not Available 04/02/2025 14:30:54 04/01/20 25 04/01/2025 CBC W Auto Diffe renti al panel - Blood erythrocytes [#/volume] in blood by automated count 4.59 text: 4.50 - 5.90 x10'6/ uL Not Available Not Available 04/02/2025 14:30:54 04/01/20 25 04/01/2025 CBC W Auto Diffe renti al panel - Blood hemoglobin [mass/volume ] in blood 14.9 text: 14.0 - 17.5 g/dL Not Available Not Available 04/02/2025 14:30:54 04/01/20 25 04/01/2025 CBC W Auto Diffe renti al panel - Blood hematocrit [volume fraction] of blood by calculation 42.5 % low: 41.5%h igh: 50.4% Not Available Not Available 04/02/2025 14:30:54 04/01/20 25 04/01/2025 CBC W Auto Diffe renti al panel - Blood MCV [entitic mean volume] in red blood cells 92.6 text: 80.0 - 96.0 fL Not Available Not Available 04/02/2025 14:30:54 04/01/20 25 04/01/2025 CBC W Auto Diffe renti al panel - Blood MCH [entitic mass] 32.5 pg low: 26.5pg high: 31.4pg high Not Available Not Available 04/02/2025 14:30:54 04/01/20 25 04/01/2025 CBC W Auto Diffe renti al panel - Blood MCHC [entitic mass/volume] in red blood cells 35.1 text: 31.9 - 34.8 g/dL high Not Available Not Available 04/02/2025 14:30:54 04/01/20 25 04/01/2025 CBC W Auto Diffe renti al panel - Blood RDW 13.1 % low: 12.3%h igh: 14.3% Not Available Not Available 04/02/2025 14:30:54 04/01/20 25 04/01/2025 CBC W Auto Diffe renti al panel - Blood platelets [#/volume] in blood 169 text: 151 - 353 x10'3/ uL Not Available Not Available 04/02/2025 14:30:54 04/01/20 25 04/01/2025 CBC W Auto Diffe renti al panel - Blood platelet [entitic mean volume] in blood 9.6 text: 9.7 - 11.9 fL low Not Available Not Available 04/02/2025 14:30:54 04/01/20 25 04/01/2025 CBC W Auto Diffe renti al panel - Blood erythrocytes [morphology] in blood by automated count NORMAL Not Available Not Available 03/10 14:30:54 04/01/20 25 04/01/2025 CBC W Auto Diffe renti al panel - Blood platelet morphology finding [identifier] in blood NORMAL Not Available Not Available 14:30:54 04/01/20 25 04/01/2025 CBC W Auto Diffe renti al panel - Blood leukocyte morphology finding [identifier] in blood NORMAL Not Available Not Available 14:30:54 04/01/20 25 04/01/2025 CBC W Auto Diffe renti al panel - Blood lymphocytes/ leukocytes in blood by automated count 24.3 % low: 15.8%h igh: 45% Not Available Not Available 04/02/2025 14:30:54 04/01/20 25 04/01/2025 CBC W Auto Diffe renti al panel - Blood neutrophils/ leukocytes in blood by automated count 63.3 % low: 42.1%h igh: 71.9% Not Available Not Available 04/02/2025 14:30:54 04/01/20 25 04/01/2025 CBC W Auto Diffe renti al panel - Blood monocytes/le ukocytes in blood by automated count 8.5 % low: 5.7%hi gh: 12.5% Not Available Not Available 04/02/2025 14:30:54 04/01/20 25 04/01/2025 CBC W Auto Diffe renti al panel - Blood eosinophils/ leukocytes in blood by automated count 2.5 % low: 0%high : 5.6% Not Available Not Available 04/02/2025 14:30:54 04/01/20 25 04/01/2025 CBC W Auto Diffe renti al panel - Blood basophils/le ukocytes in blood by automated count 0.7 % low: 0%high : 1.3% Not Available Not Available 04/02/2025 14:30:54 04/01/20 25 04/01/2025 CBC W Auto Diffe renti al panel - Blood neutrophils [#/volume] in blood 4.26 text: 1.40 - 6.00 x10'3/ uL Not Available Not Available 04/02/2025 14:30:54 04/01/20 25 04/01/2025 CBC W Auto Diffe renti al panel - Blood immature granulocytes /leukocytes in blood by automated count 0.7 % low: 0%high : 0.5% high Not Available Not Available 04/02/2025 14:30:54 04/01/20 25 04/01/2025 CBC W Auto Diffe renti al panel - Blood lymphocytes [#/volume] in blood 1.64 text: 0.80 - 4.70 x10'3/ uL Not Available Not Available 04/02/2025 14:30:54 04/01/20 25 04/01/2025 CBC W Auto Diffe renti al panel - Blood interpretati on and review of laboratory results Abnorm al Not Available Not Available 14:30:54 Result Notes None recorded. Problems Name Problem SNOMED Code Status Onset Date Resolution Date Notes Provider Name and Address Organization Details Recorded Time Erectile dysfunction 746360121 Active 2023 Ariana Salamanca MA null, [place] - [facility] 4 15:56:38 Gastroesophage al reflux disease without esophagitis 237441025 Active 2023 Ariana Salamanca MA null, [place] - [facility] 4 15:56:39 Hyperlipidemia 62765858 Active 2023 AMADA Espinoza, [facility] 4 15:56:39 Bipolar disorder 01854502 Active 2023 Ronan Blanchard MD Attn: Shakeel dalal,[address] [place], [address], [facility] - [facility] 4 16:55:36 Problem Notes None recorded. Procedures Surgical History Date Name Laterality Status Provider Name and Address Organization Details Recorded Time Back Surgery completed Emeli Cruz MA [facility] 01/15/2024 15:22:59 Cholecystectomy completed Emeli Cruz MA [facility] 01/15/2024 15:23:04 Imaging Results None recorded. Procedure Notes None recorded. Medical Equipment None Reported. Allergies No known drug allergies Medications Name Sig Start Date Stop Date Status Note LastModified by Organization Details LastModified Time quetiapine 25 mg tablet TAKE 1 TABLET BY MOUTH EVERY DAY AT BEDTIME FOR 30 DAYS 06/30 completed Not Available Not Available Not Available fluoxetine 40 mg capsule TAKE 1 CAPSULE BY MOUTH EVERY DAY FOR 30 DAYS 90 DAYS active Not Available Not Available No t Available amoxicillin 500 mg capsule TAKE 1 CAPSULE BY MOUTH THREE TIMES DAILY 01/14 completed Not Available Not Available Not Available furosemide 40 mg tablet TAKE ONE TABLET BY MOUTH TWICE A DAY NEEDED FOR SWELLING 01/14 completed Not Available Not Available Not Available trazodone 50 mg tablet TAKE ONE TABLET BY MOUTH AT BEDTIME NEEDED FOR INSOMNIA 06/30 completed Not Available Not Available Not Available flurbiprofe n 0.03 % eye drops 06/30 completed Not Available Not Available Not Available olanzapine 10 mg tablet TAKE 1 TABLET BY MOUTH EVERY DAY AT BEDTIME FOR 30 DAYS 06/30 completed Not Available Not Available Not Available omeprazole 40 mg capsule,del ayed release TAKE 1 CAPSULE BY MOUTH EVERY DAY 01/14 completed Not Available Not Available Not Available aspirin 81 mg tablet,celi yed release Take 1 tablet every day by oral route. 06/30 completed Not Available Not Available Not Available simvastatin 40 mg tablet TAKE 1 TABLET BY MOUTH DAILY 2024 active Not Available Not Available Not Avai lable ofloxacin 0.3 % ear drops INSTILL 10 DROPS TO LEFT EAR EVERY DAY FOR 7 DAYS 01/14 completed Not Available Not Available Not Available famotidine 20 mg tablet TAKE 1 TABLET BY MOUTH EVERY DAY 06/30 completed Not Available Not Available Not Available prednisolon e acetate 1 % eye drops,suspe nsion INSTILL ONE DROP INTO THE RIGHT EYE 4 TIMES A DAY 06/30 completed Not Available Not Available Not Available trazodone 100 mg tablet 2 TABLETS AT BEDTIME ORALLY ONCE A DAY active Not Available Not Available No t Available ciprofloxac in 0.3 % eye drops 06/30 completed Not Available Not Available Not Available zaleplon 10 mg capsule TAKE 1 CAPSULE BY MOUTH AT BEDTIME NEEDED ONCE EVERY DAY active Not Available Not Available No t Available zaleplon 5 mg capsule TAKE 1 CAPSULE BY MOUTH EVERY DAY NEEDED AT BEDTIME FOR 30 DAYS 01/14 completed Not Available Not Available Not Available topiramate 100 mg tablet 06/30 completed Not Available Not Available Not Available aripiprazol e 10 mg tablet TAKE 1 TABLET BY MOUTH EVERY DAY active Not Available Not Available No t Available aripiprazol e 15 mg tablet 06/30 completed Not Available Not Available Not Available aripiprazol e 5 mg tablet TAKE 1 TABLET BY MOUTH EVERY DAY FOR 30 DAYS 01/14 completed Not Available Not Available Not Available tadalafil 20 mg tablet TAKE ONE TABLET BY MOUTH 30 MINUTES BEFORE INTERCOUR SE. NO MORE THAN ONE TABLET IN 24 HOURS. active Not Available Not Available No t Available topiramate 50 mg tablet TAKE 1/2 (HALF) TABLET FOR 3 DAYS THEN INCREASE TO FULL TABLET ORALLY TWICE A DAY 30 DAYS 01/14 completed Not Available Not Available Not Available lactulose 10 gram/15 mL oral solution TAKE 15 ML EVERY DAY BY ORAL ROUTE, FOR CONSTIPAT ION. active Not Available Not Available No t Available Eliquis 5 mg tablet TAKE 1 TABLET BY MOUTH TWICE A DAY 2024 active Not Available Not Available Not Avai lable Vitals Date Recorded Body height Body mass index (BMI) Body weight Heart rate Oxygen saturation Oxygen saturation in Arterial blood by Pulse oximetry Systolic And Diastolic Provider Name and Address Organization Details Last Updated DateTime 5 185.42 cm 30.6 kg/m2 862449. 99 g 64 /min 99 % 99 % 132/70 mm[Hg] Sally Dominguez MA [facility] 5 14:18:09 Date Recorded Body height Body mass index (BMI) Body weight Heart rate Oxygen saturation Oxygen saturation in Arterial blood by Pulse oximetry Systolic And Diastolic Provider Name and Address Organization Details Last Updated DateTime 5 185.42 cm 26.7 kg/m2 57064.6 6 g 84 /min 96 % 96 % 134/68 mm[Hg] Sally Dominguez MA [facility] 5 11:02:52 Date Recorded Body height Body mass index (BMI) Body weight Heart rate Oxygen saturation Oxygen saturation in Arterial blood by Pulse oximetry Systolic And Diastolic Provider Name and Address Organization Details Last Updated DateTime 5 185.42 cm 23.9 kg/m2 54852.2 2 g 62 /min 97 % 97 % 132/66 mm[Hg] Sally Dominguez MA [facility] 5 14:24:48 Date Recorded Body height Body mass index (BMI) Body weight Oxygen saturation Oxygen saturation in Arterial blood by Pulse oximetry Heart rate Systolic And Diastolic Provider Name and Address Organization Details Last Updated DateTime 5 185.42 cm 23 kg/m2 06169.0 7 g 97 % 97 % 64 /min 108/62 mm[Hg] Sally Dominguez MA [facility] 5 11:16:19 Date Recorded Body height Body mass index (BMI) Body weight Heart rate Oxygen saturation Oxygen saturation in Arterial blood by Pulse oximetry Systolic And Diastolic Provider Name and Address Organization Details Last Updated DateTime 5 185.42 cm 22.5 kg/m2 98315.7 8 g 60 /min 98 % 98 % 118/72 mm[Hg] Karissamassiel Lyn MA [place] - [facility] 5 14:26:17 Social History Question Answer Notes LastModified by Organizat ion Details LastModified Time Tobacco Smoking Status Former Smoker Emeli AMADA Cruz null, [place] [facility] 01/15/2024 15:22:01 Are You Blind Or Do You Have Difficulty Seeing? No Information n ot available 01/15/2024 What Is Your Level Of Caffeine Consumption? None Information not available 08/26/2024 In The 14 Days Before Symptom Onset, Have You Had Close Contact With A Laboratory-confirm ed COVID-19 While That Case Was Ill? No Information n ot available 08/26/2024 In The 14 Days Before Symptom Onset, Have You Had Close Contact With A Person Who Is Under Investigation For COVID-19 While That Person Was Ill? No Information not available 08/26/2024 Have You Been To An Area Known To Be High Risk For COVID-19? No Information not available 08/26/2024 Are You Deaf Or Do You Have Serious Difficulty Hearing? No Information not available 01/15/2024 What Type Of Diet Are You Following? REGULAR Information n ot available 08/26/2024 Are There Any Guns Present In Your Home? No Information not available 04/29/2024 What Was The Date Of Your Most Recent Tobacco Screening? 06/30/2025 [email or web address] Information not available 06/30/2025 What Is Your Relationship Status? Information not available 01/15/2024 Do You Use Your Seat Belt Or Car Seat Routinely? Yes Information not available 01/15/2024 Do You Have Smoke And Carbon Monoxide Detectors In Your Home? Yes Information not available 04/29/2024 How Much Tobacco Do You Smoke? 0.5 PPD Information not available 01/15/2024 Do You Use Sunscreen Routinely? No Information not available 04/29/2024 Has Tobacco Cessation Counseling Been Provided? No Information not available 08/26/2024 How Many Years Have You Smoked Tobacco? 2 Information not available 01/15/2024 Sex: Male Functional Status Question Answer Note LastModified by Organizat ion Details LastModified Time Do you use any illicit or recreational drugs? No Information not available 08/26/2024 Do you or have you ever used any other forms of tobacco or nicotine? No Information not available 08/26/2024 What is your level of alcohol consumption? Occasional Information not available 01/15/2024 Are you currently employed? No Information not available 08/26/2024 What is your exercise level? Occasional Information not available 08/26/2024 Mental Status Question Answer Note LastModified by Organization D etails LastModified Time Do you feel stressed (tense, restless, nervous, or anxious, or unable to sleep at night)? [id number] Information not available 01/15/2024 Family History Relationship Description Onset Age of this Age Resolved Age Notes LastModified by Organization Details LastModified Time Brother Harmful pattern of use of alcohol [email or web address] Not available 2023 15:20:50 Mother Cerebrovascu lar accident [email or web address] Not available 05/2024 15:20:56 Mother Coronary arterioscler osis [email or web address] Not available 2023 15:21:02 Mother Dementia [email or web address] Not availabl e 01/15/2024 15:21:07 Mother Diabetes mellitus [email or web address] Not available 2023 15:21:11 Mother Disorder of thyroid gland [email or web address] Not available 2023 15:21:16 Mother Hypertensive disorder [email or web address] Not available 2023 15:21:25 Mother Hypercholest erolemia apaytonma Not available 2023 15:21:32 Father Coronary arterioscler osis apaytonma Not available 2023 15:21:02 Father Heart disease [email or web address] Not available 2023 15:21:21 Father Hypercholest erolemia apaytonma Not available 2023 15:21:32 Medical History Condition Response Acid Reflux (GERD) Y Immunizations Vaccine Type Date Status Note Provider Nam e and Address Organization Details Recorded Time Influenza, MDCK, quadrivalent, PF 8 completed Sally Dominguez MA null, [place] - [facility] 11/18/2024 14:02:39 Influenza, MDCK, quadrivalent, PF 9 completed Sally Dominguez [place] [facility] 11/18/2024 14:02:39 Influenza, high-dose, quadrivalent, PF 2 completed Sally Doming[place] [facility] 11/18/2024 14:02:39 Influenza, adjuvanted, quadrivalent, PF 3 completed Sally Doming[place] [facility] 11/18/2024 14:02:39 Influenza, split virus, quadrivalent, PF 7 completed Sally Dom[place] [facility] 11/18/2024 14:02:39 Influenza, split virus, quadrivalent, PF 6 completed Sally Dom[place] [facility] 11/18/2024 14:02:39 Influenza, split virus, quadrivalent, PF 0 completed Sally Doming[place] [facility] 11/18/2024 14:02:39 Influenza, high-dose, trivalent, PF 4 completed Sally Doming[place] [facility] 11/18/2024 14:02:45 Pneumococcal conjugate PCV20, polysaccharide TVP328 conjugate, adjuvant, PF 5 completed Ronan Blanchard MD Attn: Accounting,[address] [place], [address], [place] [facility] 11/18/2024 23:40:13 Influenza, high-dose, trivalent, PF 5 completed AMADA Robin, [place] [facility] 07/10/2025 09:40:25 Past Encounters Encounter ID Performer Location Encounter Start Date Encounter Closed Date Diagnosis/Indication Diagnosis SNOMED-CT Code Diagnosis ICD10 Code Diagnosis IMO Codes Diagnosis Note [id number] Ronan Blanchard MD [facility] [place] [address] [place] [address] 01/15/2024 14:33:49 01/15/2024 16:08:23 Gastroesophageal reflux disease without esophagitis 969105893 K21.9 Erectile dysfunction 860 055001 F52.21 Hyperlipidemia 71823045 E78.5 Screening for malignant neoplasm of prostate 847760537 Z12.5 Long-term drug therapy 210369065 Z79.058 [id number] Ronan Blanchard MD [facility] [place] [address] [place] [address] 04/29/2024 13:54:21 04/29/2024 14:52:35 Obesity 717822640 E66.8 Overweight 203782664 E66 .3 Hyperlipidemia 07412506 E78.5 Electrocar diogram abnormal 997256304 R94.31 Diabetes m ellitus screening 079694411 Z13.1 Erectile dysfunction 860 171330 F52.21 [id number] Ronan Blanchard MD [facility] [place] [address] [employer] | [place] [address] 08/26/2024 14:41:38 08/26/2024 15:41:58 Obesity 454739379 E66.9 Hyperlipidemia 90812501 E78.5 Fatigue 34238372 R53.83 [id number] Ronan Blanchard MD [facility] [employer] [facility] [place] [address] [employer] | [place] [address] 11/18/2024 13:47:53 11/18/2024 14:59:14 Body mass index 30+ - obesity 659213038 Z68.30 Obesity 619478799 E66.9 Administra tion of pneumococcal vaccine 83139369 Z23 Gastroesop hageal reflux disease without esophagitis 560734009 K21.9 Hyperlipidemia 94110080 E78.5 Erectile dysfunction 860 439309 F52.21 [id number] Ronan Blanchard MD [facility] [employer] [facility] [place] [address] [place] [address] 01/06/2025 10:44:28 01/06/2025 11:52:28 Unintentional weight loss 965148846 R63.4 Gastroesop hageal reflux disease without esophagitis 004791140 K21.9 Hyperlipidemia 36794653 E78.5 [id number] Ronan Blanchard MD [facility] [employer] [facility] [place] [address] [employer] | [place] [address] 02/24/2025 13:50:11 02/24/2025 15:11:08 Body mass index 20-24 - normal 642589014 Z68.23 7495672204 Overweight 793011162 E66 .3 Pulmonary thromboembolism 244346546 I26.99 960725 Sleep disorder 22653673 G47.9 60910 Gastroesop hageal reflux disease without esophagitis 856797610 K21.9 Hyperlipidemia 89386401 E78.5 [id number] Ronan Blanchard MD [facility] [employer] [facility] [place] [address] [employer] | [place] [address] 04/07/2025 10:54:41 04/07/2025 11:36:00 Constipation 94758521 K59.00 974602343 [id number] Ronan Blanchard MD [facility] [employer] [facility] [place] [address] [employer] | [place] [address] 06/30/2025 14:06:33 06/30/2025 15:15:47 Body mass index 20-24 - normal 248224869 Z68.22 19634566 22.5 Influenza vaccination given 0042357868 9109 Z23 09654510 Hyperlipidemia 29647898 E78.5 Gastroesop hageal reflux disease without esophagitis 767580857 K21.9 Chronic constipation 236 722438 K59.09 947124 Health Concerns Section Related Observation LastModified by Organization Detai ls LastModified Time None Recorded Concern Status LastModified by Organization Details LastModified Time None Recorded Advance Directives Directive None Recorded Payers Insurance Date Sequence Insurance Name Policy Number Policy Gomes Covered Member ID Gomes Member ID Guarantor Name 07/31/2025 1 [facility] (MEDICARE REPLACEMENT/A DVANTAGE - HMO) [id number] Bowen Davila [id number] Bowen Davila 01/06/2025 1 [facility] [id number] Bowen Davila [id number] Bowen Richtert[place]y 07/23/2025 2 [place] [facility] Bowen Davila [id number] Bowen Richtertorey Notes Date Note Type Note Provider Name and Address Organization Details Recorded Time 11/18/2024 text/html GERD no nausea or vomiting. Obesity trouble losing weight but not trying the hard. Dyslipidemia is trying to watch diet at times Ronan Blanchard MD Attn: Accounting, [address] , [place], [address], [facility] 11/18/2024 23:42:07 01/06/2025 text/html seen for weight loss he has lost about 20 or 30 lb his psychiatrist has chats not send her to the emergency room hoping that he might very well be admitted for severe depression and he was not up according to the psychiatric professional the is telling me that they are considering ECT. 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 They have recommended a sleep study because of possible restless legs symptomatology and he did have some upper and lower endoscopies while he was there did not reveal any malignancy superficial ulceration in the upper endoscopy without bleeding he has not had marked improvement and they are going to decide at next psychiatry appointment what to do as far as ECT goes Ronan Blanchard MD Attn: Accounting, [address] [facility], [place], [address], [facility] 03/02/2025 15:44:37 04/07/2025 text/html Constipation ER enema maybe a little bit better the cycles about every 2 weeks according to Ronan Blanchard MD Attn: Accounting, [address] [place], [address], [facility] 04/07/2025 13:41:33 06/30/2025 text/html Dyslipidemia trying to watch diet best he can his GERD has been stable bipolar he is working with Psychiatry and they are also doing some further assessment for memory and I believe he has a appointment with another mental health professional or neurologist Ronan Blanchard MD Attn: Accounting[address] [place], [address], [facility] 07/13/2025 16:47:58"
--- OUTSIDE RECORDS SUMMARY | 2025-08-20 10:14 | XMS_ITS | Patient Health Record ---
Author Organization [facility] Address [address] [place] [address] Care Team Providers Care Dramatic Arts Historian Name Role Phone Sukhdeep James Primary Care Provider Allergies No Known Allergies Reason For Referral No Information Medications Medication SIG (Take, Route, Frequency, Duration) Notes Start Date End Date Status FLUoxetine HCl 40 MG TAKE 1 CAPSULE BY MOUTH EVERY DAY FOR 30 DAYS 90 DAYS Active Zaleplon 10 MG 1 capsule at bedtime as needed Orally Once a day; Duration: 28 days 07/17/2025 Active ARIPiprazole 10 MG TAKE 1 TABLET BY MOUTH EVERY DAY Active traZODone HCl 100 MG 2 tablets at bedtim e Orally Once a day; Duration: 28 days 03/25/2025 Active Simvastatin 40 MG 1 tablet in the evening Orally Once a day Active Prostate 3 tabs at bedtime Active Eliquis Active Aspirin 81 81 MG 1 tablet Orally Once a day; Duration: 30 day(s) Active Fish Oil 1200 MG 1 capsule Orally Twice a day Active Mens 50+ Multivitamin - as directed Orally Active Social History Tobacco Use: Social History Observation Description Date Details (start date - stop date) Never Smoker NA - NA Sex Assigned At : Social History Observation Description Sex Assigned At Male Dont use, Tobacco Use/Smoking Question Answer Notes Are you a former smoker How long has it been since you last smoked? > 20 years Tobacco Control (Standard) Question Answer Notes Tobacco use: Nonsmoker Problems Problem Type SNOMED Code ICD Code Onset Dates Problem Status W/U Status Risk Notes Problem Overweight (099732959) Over weight (E66.3) Active confirmed Problem Obesity (979898770) Obesity, unspecified classification , unspecified obesity type, unspecified whether serious comorbidity present (E66.9) Active confirmed Problem Bipolar disorder (95106194) Bipolar depression (F31.9) Active confirmed Geriatric onset Vital Signs Heart Rate 58 /min 07/16/2025 Temperature 98.2 degrees Fahrenheit 07/16/2025 Respiratory Rate 16 /min 07/16/2025 Blood pressure diastolic 86 mm Hg 07/16/2025 Oximetry 98 % 07/16/2025 Height 73 inches in 07/16/2025 Blood pressure systolic 132 mm Hg 07/16/2025 Weight 171.4 lbs lbs 07/16/2025 BMI 22.61 kg/m2 07/16/2025 Encounters Encounter Location Date Provider Diagnosis [address] [address] 08/29/2024 Sukhdeep James Bipolar 1 disorder F[address] [address] 09/26/2024 Sukhdeep James Nutritional counseling Z71.3 and Bipolar 1 disorder F31.[address] [address] 11/21/2024 Sukhdeep James Bipolar 1 disorder F31.9 and Obesity, unspecified classification, unspecified obesity type, unspecified whether serious comorbidity present E66.[address] [address] 12/10/2024 Sukhdeep James Bipolar 1 disorder F31.[address] [address] 12/16/2024 Sukhdeep James Bipolar 1 disorder F31.[address] [address] 12/23/2024 Sukhdeep James Bipolar 1 disorder F31.9 and Obesity, unspecified classification, unspecified obesity type, unspecified whether serious comorbidity present E66.[address] [address] 01/02/2025 Sukhdeep James Bipolar 1 disorder F31.[address] [address] 01/22/2025 Sukhdeep James Over weight E66.3 and Bipolar depression F31.[address] [address] 02/13/2025 Sukhdeep James Bipolar depression F31.[address] [address] 03/13/2025 Sukhdeep James Over weight E66.3 and Bipolar depression F31.[address] [address] 07/16/2025 Sukhdeep James Bipolar depression F31.[address] [address] 12/02/2024 Sukhdeep James [address] [address] 12/13/2024 Sukhdeep James [address] [address] 12/16/2024 Sukhdeep James [address] [address] 01/06/2025 Sukhdeep James [address] [address] 06/18/2025 Sukhdeep James Bipolar depression F31.[address] [address] 07/16/2025 Sukhdeep James [address] [address] 07/22/2025 Sukhdeep James Assessments Encounter Date Diagnosis (ICD Code) Assessment Notes Treatment Notes Treatment Clinical Notes Section Notes 08/29/2024 Bipolar 1 disorder (ICD-10 - F31.9) Geriatric onset Client with apathy and amotivation noticable by his family. Noticable to himself when pointed out. He is agreeable to decreasing the dosages on his current treatment plan to see if helpful. to help monitor his moods and report back to office for any concerning behaviors. 09/26/2024 Bipolar 1 disorder (ICD-10 - F31.9) Geriatric onset 09/26/2024 Nutritional counseling (ICD-10 - Z71.3) 11/21/2024 Bipolar 1 disorder (ICD-10 - F31.9) Geriatric onset Client doing well overall. However, cost of Zaleplon becoming problematic. Client given options and wishes to first trial low dose quetiapine after discussion of risk versus benefit of many different options/scenerios (see HPI). Sending in a month's supply to [facility] for client (other medications go to mail order for 90 day supply). He is to try for a few weeks and update office on progress and if any issues before next refill due. He is agreeable to this plan and his states she will help him with this. 12/10/2024 Bipolar 1 disorder (ICD-10 - F31.9) Geriatric onset 12/16/2024 Bipolar 1 disorder (ICD-10 - F31.9) Geriatric onset Client to go straight to ER for inpatient admission given severity of symptoms. If he is not admitted, to notify office and treatment plan will be adjusted at that point. If admitted, records to be faxed to office so provider can adjust treatment plan to inpatient changes. Client's condition unchanged. He continues to have deep depression unaffected by change to olanzapine/trazod one combination. No sleep, little appetite. Unknown to provider, client had been taking an unknown testosterone supplement that he started at same time his and him asked provider to change his hyponotic medication to more affordable option. These two things in concert likely causing cascade of events. Instructed to take client straight to ER and notify office of outcome. States she will. Reminded her and client to sign release at [facility] so records can be faxed if client gets admitted. 12/23/2024 Bipolar 1 disorder (ICD-10 - F31.9) Geriatric onset Client agreeable to starting fluoxetine in am and increase to olanzapine and trazodone at night to aide in depression/insomn ia. Unfortunately, he was not placed inpatient for symptom management even though he had scant food/liquid intake last week for days and no sleep for days and was agreeable to hospitalization. ER stated he was not SI/HI so they refused to admit him to behavioral health per , despite deep depression causing these issues and clear signs of dehydration. Fluid and food intake has slowly improved though insomnia still present. Some cat napping. 01/02/2025 Bipolar 1 disorder (ICD-10 - F31.9) Geriatric onset Client continues to have symptoms of severe depression though states she sees some slight improvements since addition of fluoxetine and increase in olanzapine (less mask like expressions, more expressive emotions, eating a bit more). Attempt to have client hospitalized have failed after local hospital sent client away despite a near vegatative depression. Client to see his PCP on Monday. Discussed with client and that if intake should decrease and not increase, to discuss with PCP, as client may need hospitalization of medical origin. states she understands. Client still having troublesome insomnia. Client and agreeable to increase of trazodone and fluoxetine. Discussed how to use the dosages they have at home to make up increases until new script is filled. to update office on client's condition next week and then schedule appt for following week, but if condition worsens for next week. 01/22/2025 Over weight (ICD-10 - E66.3) Client continues to suffer with moderate to severe levels of depression. No jimbo/manic symptoms at this time. Has had clear manic symptoms in past though doctors at [facility] were unconvinced of bipolar nature of depression. Regardless, client appears to be responding well to Prozac/Abilify combination. Will leave in place and continue at present levels and give more time to current treatment plan. 01/22/2025 Bipolar depression (ICD-10 - F31.9) Geriatric onset Client continues to suffer with moderate to severe levels of depression. No jimbo/manic symptoms at this time. Has had clear manic symptoms in past though doctors at [facility] were unconvinced of bipolar nature of depression. Regardless, client appears to be responding well to Prozac/Abilify combination. Will leave in place and continue at present levels and give more time to current treatment plan. 02/13/2025 Bipolar depression (ICD-10 - F31.9) Geriatric onset Client denies depression and affect does appear to be improving. He has continued issues with constipation and lowered appetite and impaired concentration. Discussed switching client over from trazodone to Sonata as this had been more helpful in past and would be less impactul for constipation and sedating during the day. Overall, failure to thrive appears more r/t underlying unknown medical cause and this has been discussed with family who plan to pursue with PCP. 03/13/2025 Over weight (ICD-10 - E66.3) Client continues to have ongoing insomnia despite 10 mg zaleplon. Continues to lose weight. Increase in cognitive fogging, BLE tremor L>R, mild in BLE though states can be extreme at times. Upcoming neurology appt at [facility] in a few months. Encouraged foods client willing to eat. Offered to add medication that might increase appetite but client/ decline at this time. Encourage close f/u with PCP as well given medical fraility at this time. Discussed a trial of increase in trazodone added to zaleplon to see if will increase sleep, but to limit use if morning sedation problematic or if cognitive fogging appears to worsen. Client and verbalize understanding and are agreeable. 03/13/2025 Bipolar depression (ICD-10 - F31.9) Geriatric onset Client continues to have ongoing insomnia despite 10 mg zaleplon. Continues to lose weight. Increase in cognitive fogging, BLE tremor L>R, mild in BLE though states can be extreme at times. Upcoming neurology appt at [facility] in a few months. Encouraged foods client willing to eat. Offered to add medication that might increase appetite but client/ decline at this time. Encourage close f/u with PCP as well given medical fraility at this time. Discussed a trial of increase in trazodone added to zaleplon to see if will increase sleep, but to limit use if morning sedation problematic or if cognitive fogging appears to worsen. Client and verbalize understanding and are agreeable. 06/18/2025 Bipolar depression (ICD-10 - F31.9) Geriatric onset 07/16/2025 Bipolar depression (ICD-10 - F31.9) Geriatric onset Client with some improvements overall. Weight has stabilized, pacing has decreased. Fine tremor (BUE) is the same, short term memory issues continue. Client getting 4-6 hours of disrupted sleep. Usually disrupted by vivid dreaming, waking client up. No noted apneic periods per . No jimbo symptoms. Depression mild and manageable as is anxiety. Apathy, anhedonia, amotivation still present though lessened and client eating better. Has recently had memory clinic visit with neurologist at [facility] and this provider will call for collaborative care approach later today. At this point in time will leave treatment plan unchanged due to risk versus benefit and the somewhat low dose of the aripiprazole at 10 mg. Client has been on 15 mg in the past with no issues. Unclear how much this is contributing. 12/23/2024 Obesity, unspecified classification , unspecified obesity type, unspecified whether serious comorbidity present (ICD-10 - E66.9) Client agreeable to starting fluoxetine in am and increase to olanzapine and trazodone at night to aide in depression/insomn ia. Unfortunately, he was not placed inpatient for symptom management even though he had scant food/liquid intake last week for days and no sleep for days and was agreeable to hospitalization. ER stated he was not SI/HI so they refused to admit him to behavioral health per , despite deep depression causing these issues and clear signs of dehydration. Fluid and food intake has slowly improved though insomnia still present. Some cat napping. 11/21/2024 Obesity, unspecified classification , unspecified obesity type, unspecified whether serious comorbidity present (ICD-10 - E66.9) Client doing wel l overall. However, cost of Zaleplon becoming problematic. Client given options and wishes to first trial low dose quetiapine after discussion of risk versus benefit of many different options/scenerios (see HPI). Sending in a month's supply to [facility] for client (other medications go to mail order for 90 day supply). He is to try for a few weeks and update office on progress and if any issues before next refill due. He is agreeable to this plan and his states she will help him with this. [place]29/2024 [place]. Discussed sleep hygiene and caffeine intake with encouragement to limit electronic devices an hour before bed and to limit caffeine after 3:00pm. Exercise benefits for mood and health discussed. Psychoeducation regarding psychiatric illness provided. Client was educated about risks and benefits of medication, alternatives to medication, off label uses of medication, suicidal ideation with SSRIs, self-administratio n and compliance with medication along with how to safely store medication. Verbal informed consent obtained. Client agrees to return sooner if symptoms worsen or if suicidal or homicidal ideations occur. Client has the phone number to the 24-hour crisis line at [facility]. Questions addressed. Client verbalized understanding of all information and is agreeable to treatment plan. Client with apathy and amotivation noticable by his family. Noticable to himself when pointed out. He is agreeable to decreasing the dosages on his current treatment plan to see if helpful. to help monitor his moods and report back to office for any concerning behaviors. 09/26/2024 [place]. Discussed sleep hygiene and caffeine intake with encouragement to limit electronic devices an hour before bed and to limit caffeine after 3:00pm. Exercise benefits for mood and health discussed. Psychoeducation regarding psychiatric illness provided. Client was educated about risks and benefits of medication, alternatives to medication, off label uses of medication, suicidal ideation with SSRIs, self-administratio n and compliance with medication along with how to safely store medication. Verbal informed consent obtained. Client agrees to return sooner if symptoms worsen or if suicidal or homicidal ideations occur. Client has the phone number to the 24-hour crisis line at [facility]. Questions addressed. Client verbalized understanding of all information and is agreeable to treatment plan. 11/21/2024 Other Discussed sleep hygiene and caffeine intake with encouragement to limit electronic devices an hour before bed and to limit caffeine after 3:00pm. Exercise benefits for mood and health discussed. Psychoeducation regarding psychiatric illness provided. Client was educated about risks and benefits of medication, alternatives to medication, off label uses of medication, suicidal ideation with SSRIs, self-administratio n and compliance with medication along with how to safely store medication. Verbal informed consent obtained. Client agrees to return sooner if symptoms worsen or if suicidal or homicidal ideations occur. Client has the phone number to the 24-hour crisis line at [facility]. Questions addressed. Client verbalized understanding of all information and is agreeable to treatment plan. Client doing well overall. However, cost of Zaleplon becoming problematic. Client given options and wishes to first trial low dose quetiapine after discussion of risk versus benefit of many different options/scenerios (see HPI). Sending in a month's supply to [facility] for client (other medications go to mail order for 90 day supply). He is to try for a few weeks and update office on progress and if any issues before next refill due. He is agreeable to this plan and his states she will help him with this. 12/10/2024 Other Discussed sleep hygiene and caffeine intake with encouragement to limit electronic devices an hour before bed and to limit caffeine after 3:00pm. Exercise benefits for mood and health discussed. Psychoeducation regarding psychiatric illness provided. Client was educated about risks and benefits of medication, alternatives to medication, off label uses of medication, suicidal ideation with SSRIs, self-administratio n and compliance with medication along with how to safely store medication. Verbal informed consent obtained. Client agrees to return sooner if symptoms worsen or if suicidal or homicidal ideations occur. Client has the phone number to the 24-hour crisis line at [facility]. Questions addressed. Client verbalized understanding of all information and is agreeable to treatment plan. 12/23/2024 Other Discussed sleep hygiene and caffeine intake with encouragement to limit electronic devices an hour before bed and to limit caffeine after 3:00pm. Exercise benefits for mood and health discussed. Psychoeducation regarding psychiatric illness provided. Client was educated about risks and benefits of medication, alternatives to medication, off label uses of medication, suicidal ideation with SSRIs, self-administratio n and compliance with medication along with how to safely store medication. Verbal informed consent obtained. Client agrees to return sooner if symptoms worsen or if suicidal or homicidal ideations occur. Client has the phone number to the 24-hour crisis line at [facility]. Questions addressed. Client verbalized understanding of all information and is agreeable to treatment plan. Client agreeable to starting fluoxetine in am and increase to olanzapine and trazodone at night to aide in depression/insomn ia. Unfortunately, he was not placed inpatient for symptom management even though he had scant food/liquid intake last week for days and no sleep for days and was agreeable to hospitalization. ER stated he was not SI/HI so they refused to admit him to behavioral health per , despite deep depression causing these issues and clear signs of dehydration. Fluid and food intake has slowly improved though insomnia still present. Some cat napping. 01/02/2025 Other Discussed sleep hygiene and caffeine intake with encouragement to limit electronic devices an hour before bed and to limit caffeine after 3:00pm. Exercise benefits for mood and health discussed. Psychoeducation regarding psychiatric illness provided. Client was educated about risks and benefits of medication, alternatives to medication, off label uses of medication, suicidal ideation with SSRIs, self-administratio n and compliance with medication along with how to safely store medication. Verbal informed consent obtained. Client agrees to return sooner if symptoms worsen or if suicidal or homicidal ideations occur. Client has the phone number to the 24-hour crisis line at [facility]. Questions addressed. Client verbalized understanding of all information and is agreeable to treatment plan. Client continues to have symptoms of severe depression though states she sees some slight improvements since addition of fluoxetine and increase in olanzapine (less mask like expressions, more expressive emotions, eating a bit more). Attempt to have client hospitalized have failed after local hospital sent client away despite a near vegatative depression. Client to see his PCP on Monday. Discussed with client and that if intake should decrease and not increase, to discuss with PCP, as client may need hospitalization of medical origin. states she understands. Client still having troublesome insomnia. Client and agreeable to increase of trazodone and fluoxetine. Discussed how to use the dosages they have at home to make up increases until new script is filled. to update office on client's condition next week and then schedule appt for following week, but if condition worsens for next week. 01/22/2025 Other Discussed sleep hygiene and caffeine intake with encouragement to limit electronic devices an hour before bed and to limit caffeine after 3:00pm. Exercise benefits for mood and health discussed. Psychoeducation regarding psychiatric illness provided. Client was educated about risks and benefits of medication, alternatives to medication, off label uses of medication, suicidal ideation with SSRIs, self-administratio n and compliance with medication along with how to safely store medication. Verbal informed consent obtained. Client agrees to return sooner if symptoms worsen or if suicidal or homicidal ideations occur. Client has the phone number to the 24-hour crisis line at [facility]. Questions addressed. Client verbalized understanding of all information and is agreeable to treatment plan. Client continues to suffer with moderate to severe levels of depression. No jimbo/manic symptoms at this time. Has had clear manic symptoms in past though doctors at [facility] were unconvinced of bipolar nature of depression. Regardless, client appears to be responding well to Prozac/Abilify combination. Will leave in place and continue at present levels and give more time to current treatment plan. 02[place]13[place]2025 [place]. Discussed sleep hygiene and caffeine intake with encouragement to limit electronic devices an hour before bed and to limit caffeine after 3:00pm. Exercise benefits for mood and health discussed. Psychoeducation regarding psychiatric illness provided. Client was educated about risks and benefits of medication, alternatives to medication, off label uses of medication, suicidal ideation with SSRIs, self-administratio n and compliance with medication along with how to safely store medication. Verbal informed consent obtained. Client agrees to return sooner if symptoms worsen or if suicidal or homicidal ideations occur. Client has the phone number to the 24-hour crisis line at [facility]. Questions addressed. Client verbalized understanding of all information and is agreeable to treatment plan. Client denies depression and affect does appear to be improving. He has continued issues with constipation and lowered appetite and impaired concentration. Discussed switching client over from trazodone to Sonata as this had been more helpful in past and would be less impactul for constipation and sedating during the day. Overall, failure to thrive appears more r/t underlying unknown medical cause and this has been discussed with family who plan to pursue with PCP. 03/13/2025 [place]. Discussed sleep hygiene and caffeine intake with encouragement to limit electronic devices an hour before bed and to limit caffeine after 3:00pm. Exercise benefits for mood and health discussed. Psychoeducation regarding psychiatric illness provided. Client was educated about risks and benefits of medication, alternatives to medication, off label uses of medication, suicidal ideation with SSRIs, self-administratio n and compliance with medication along with how to safely store medication. Verbal informed consent obtained. Client agrees to return sooner if symptoms worsen or if suicidal or homicidal ideations occur. Client has the phone number to the 24-hour crisis line at [facility]. Questions addressed. Client verbalized understanding of all information and is agreeable to treatment plan. Client continues to have ongoing insomnia despite 10 mg zaleplon. Continues to lose weight. Increase in cognitive fogging, BLE tremor L>R, mild in BLE though states can be extreme at times. Upcoming neurology appt at [facility] in a few months. Encouraged foods client willing to eat. Offered to add medication that might increase appetite but client/ decline at this time. Encourage close f/u with PCP as well given medical fraility at this time. Discussed a trial of increase in trazodone added to zaleplon to see if will increase sleep, but to limit use if morning sedation problematic or if cognitive fogging appears to worsen. Client and verbalize understanding and are agreeable. [place]16[place]2025 [place] issues noted at this time. Discussed sleep hygiene and caffeine intake with encouragement to limit electronic devices an hour before bed and to limit caffeine after 3:00pm. Exercise benefits for mood and health discussed. Psychoeducation regarding psychiatric illness provided. Client was educated about risks and benefits of medication, alternatives to medication, off label uses of medication, suicidal ideation with SSRIs, self-administratio n and compliance with medication along with how to safely store medication. Verbal informed consent obtained. Client agrees to return sooner if symptoms worsen or if suicidal or homicidal ideations occur. Client has the phone number to the 24-hour crisis line at [facility]. Questions addressed. Client verbalized understanding of all information and is agreeable to treatment plan. Client with some improvements overall. Weight has stabilized, pacing has decreased. Fine tremor (BUE) is the same, short term memory issues continue. Client getting 4-6 hours of disrupted sleep. Usually disrupted by vivid dreaming, waking client up. No noted apneic periods per . No jimbo symptoms. Depression mild and manageable as is anxiety. Apathy, anhedonia, amotivation still present though lessened and client eating better. Has recently had memory clinic visit with neurologist at [facility] and this provider will call for collaborative care approach later today. At this point in time will leave treatment plan unchanged due to risk versus benefit and the somewhat low dose of the aripiprazole at 10 mg. Client has been on 15 mg in the past with no issues. Unclear how much this is contributing. Plan Of Treatment No Information Insurance Providers Payer Name Payer Address Payer Phone Subscriber Number Group Number Insured Name Patient Relationship to Insured Coverage Start Date Coverage End Date [facility] Medicare [address] [address] [place] [phone] [id number] Bowen Rao lt Self - patient is the insured 3 MEDICARE PART A [address] [place] [phone] [id number] Jalen figueroa Bowen Self - patient is the insured 3 3 Medical (General) History Medical History History ICD Code blood pressure bipolar Surgical History Surgery Date(Month/Year) L3 and L4 removed 1979 L5 removed gallbladder 08/2022 bilateral lasix eye surgery cataract surgery Hospitalization History Reason Date(Month/Year) not eating or sleeping for 3wks physical & mental issues 01/2025 Feeting swelling 12/2022
--- OUTSIDE RECORDS SUMMARY | 2025-08-20 10:14 | XMS_ITS | Clinical Summary ---
Author Organization [facility] [address] Address [address] [place] [address] Care Team Providers Care Car Dealer Name Role Phone Jonathan Blanchard MD Primary Care Provider [phone] Sukhdeep James WOOL HANDLER Unavailable [phone] Allergies No known active allergies Medications FLUoxetine (PROzac) 40 mg capsuleIndicati ons:depression Take 1 capsule (40 mg total) by mouth daily 12/23/2024 Active traZODone (DESYREL) 100 mg tabletIndicatio ns:insomnia associated with depression Take 2 tablets (200 mg total) by mouth nightly as needed for sleep 12/10/2024 Active simvastatin (ZOCOR) 40 mg tabletIndicatio ns:hyperlipidem ia Take 1 tablet (40 mg total) by mouth daily 09/30/2024 Active apixaban (ELIQUIS) 5 mg tabletIndicatio ns:Venous Thrombosis Take 1 tablet (5 mg total) by mouth every 12 (twelve) hours 60 tablet 11 01/16/2025 Active ARIPiprazole (ABILIFY) 10 mg tabletIndicatio ns:Bipolar Disorder Take 1 tablet (10 mg total) by mouth daily Active zaleplon (SONATA) 10 mg capsule Take 1 capsule (10 mg total) by mouth nightly Active Active Problems Problem Noted Date Diagnosed Date Depression 01/16/2025 Clonus 01/14/2025 Assessment & Plan (01/16/2025 10:09 AM CDT): Clonus bilateral today, 2-3 beats per foot. Unclear importance/etiology. PLAN - Refer outpatient to neurology for further evaluation. Assessment & Plan (01/15/2025 7:26 AM CDT): CT head unremarkable. Remains oriented and alert. Continue to monitor. PLAN - Refer outpatient to neurology for further evaluation. Assessment & Plan (01/14/2025 2:06 PM CDT): Patient noted to have clonus on lower extremities (sometimes unilateral, sometimes bilateral) along with intention tremor and bradykinesia. No cogwheeling or rigidity, no obvious tremor at rest. MOCA 19 but MMSE 27/30, although if he is depressed this may be pseudodementia. No clear explanation at this time, may be more appropriately managed outpatient. PLAN - CT Head today to rule out major intracranial pathology - Refer outpatient to neurology for further evaluation. Healthcare maintenance 01/10/2025 Assessment & Plan (01/16/2025 10:08 AM CDT): TSH: 2.58 LDL: 46 HDL: 40 TChol: 102 HIV: Negative RPR: Negative Acute hepatitis: Hep A/B/C/negative HgA1c: 6.0 (04/2024) B12: 982 Folate: >20 (WNL) Assessment & Plan (01/13/2025 8:21 AM CDT): TSH: 2.58 LDL: 46 HDL: 40 TChol: 102 HIV: Negative RPR: Negative Acute hepatitis: Hep A/B/C/negative HgA1c: 6.0 (04/2024) B12: 982 Folate: >20 (WNL) Assessment & Plan (01/10/2025 12:08 PM CDT): TSH: 2.58 LDL: 46 HDL: 40 TChol: 102 HIV: Negative RPR: Negative Acute hepatitis: Hep A/B/C/negative HgA1c: 6.0 (04/2024) B12: 982 Folate: >20 (WNL) Assessment & Plan (01/10/2025 10:47 AM CDT): TSH: 2.58 LDL: 46 HDL: 40 TChol: 102 HIV: Negative RPR: Negative Acute hepatitis: pending HgA1c: Pending B12: Pending Folate: Pending Pulmonary embolism 01/09/2025 Overview (01/09/2025): Assessment & Plan (01/16/2025 10:08 AM CDT): - Resume Eliquis 5mg BID PO for PE Assessment & Plan (01/15/2025 7:24 AM CDT): - Holding Eliquis 5mg BID PO for AC for EGD/CSCPY Assessment & Plan (01/14/2025 7:04 AM CDT): - Holding Eliquis 5mg BID PO for AC for EGD/CSCPY Assessment & Plan (01/13/2025 8:21 AM CDT): - Continue Eliquis 5mg BID PO for AC Assessment & Plan (01/12/2025 9:49 AM CDT): - Continue Eliquis 5mg BID PO for AC Assessment & Plan (01/10/2025 9:25 AM CDT): RLL subsegmental PE currently classified unprovoked. CT PE with no other PEs and BLE dopplers with no DVTs. Continue eliquis. PLAN - Continue Eliquis 5mg BID PO for AC Assessment & Plan (01/09/2025 12:32 PM CDT): Incidental small subsegmental right lower lobe pulmonary embolism without CT evidence of right heart strain. No provoking factors (long distance travel, trauma, personal or family history of PEs/hypercoagulopathy). PLAN - CTA chest PE to evaluate for additional pulmonary emboli - Bilateral lower extremities doppler US to evaluate for DVTs - Continue Eliquis 5mg BID PO for AC Severe malnutrition 01/09/2025 Assessment & Plan (01/16/2025 10:08 AM CDT): See unintentional weight loss problem Assessment & Plan (01/14/2025 7:01 AM CDT): See unintentional weight loss problem Assessment & Plan (01/13/2025 8:21 AM CDT): See unintentional weight loss problem Assessment & Plan (01/12/2025 7:50 AM CDT): See unintentional weight loss problem Assessment & Plan (01/10/2025 7:51 AM CDT): See unintentional weight loss problem Bipolar I disorder, current or most recent episode depressed, moderate 01/07/2025 Assessment & Plan (01/16/2025 10:28 AM CDT): Affect and mood improved today, not interested in ECT. Will uptitrate Abilify for now. PLAN - Increase Abilify 10mg PO qday for BPAD1/depression augmentation - Continue fluoxetine 40mg daily for BPAD1 Assessment & Plan (01/16/2025 10:06 AM CDT): Affect and mood improved today, not interested in ECT. Will uptitrate Abilify for now. PLAN - Increase Abilify 10mg PO qday for BPAD1/depression augmentation - Continue fluoxetine 40mg daily for BPAD1 Assessment & Plan (01/15/2025 7:23 AM CDT): No issues with medication changes so far. Will discontinue olanzapine today, continue Abilify and uptitrate as appropriate. PLAN - Discontinue olanzapine - Continue Abilify 5mg PO qday for BPAD1/depression augmentation with plan to uptitrate as appropriate. - Continue fluoxetine 40mg daily for BPAD1 Assessment & Plan (01/14/2025 2:02 PM CDT): QIDS score of 12 today. MSE remains euthymic with decreased intensity vs blunted, although appropriately reactive when engaged. Hungry today, although sleep and appetite currently confounded by ongoing bowel regimen. Based on chart review, concerns for insomnia and decreased mood appeared to occur in context of weaning Abilify, which was subsequently treated by restarting Zyprexa (previously discontinued due to weight gain). Given his age, constipation (which is a side effect of Zyprexa), and lack of psychotic/manic symptoms we will wean him off this completely. Due to his history of bipolar disorder and report of prior efficacy, we will restart him on Abilify and uptitrate him. If medical workup remains negative/inconclusive, we will consider ECT consult while optimizing medical therapy. PLAN - Decrease olanzapine 5mg PO qHS for BPAD1 with plan to discontinue - Start Abilify 5mg PO qday for BPAD1/depression augmentation with plan to uptitrate as appropriate. - Continue fluoxetine 40mg daily for BPAD1 Assessment & Plan (01/13/2025 8:19 AM CDT): Remains stable, no concerns at this time. PLAN - Continue olanzapine 10mg qHS for BPAD1 - Continue fluoxetine 40mg daily for BPAD1 Assessment & Plan (01/12/2025 9:48 AM CDT): Mood stable, no overt depression and reactive in conversation. Still having small tremor/clonus. Due to history of BPAD will keep Zyprexa at this dose (goal of balancing efficacy with reducing side effects). Discontinue trazodone as he has not used it since arriving. PLAN - Continue olanzapine 10mg qHS for BPAD1 - Continue fluoxetine 40mg daily for BPAD1 - Discontinue trazodone 200mg qHS PRN for insomnia Assessment & Plan (01/10/2025 10:29 AM CDT): Affect remains blunted with some reactivity but otherwise stable, not overtly depressed, no safety concerns. In the absence of other explanatory factors, patient's constipation, few beats clonus, and restricted affect could be side effects of Zyprexa. Will wean this medication and monitor changes in MSE. PLAN - Decrease olanzapine 10mg qHS for BPAD1 - Continue fluoxetine 40mg daily for BPAD1 - Continue trazodone 200mg qHS PRN for insomnia Assessment & Plan (01/09/2025 12:15 PM CDT): History of BPAD1 with manic episode in 2021 managed inpatient for 10 days with Abilify, Zyprexa, and Topamax (allegedly, per ). Has not had recurrent episode. Per collateral, and outside providers think his eating/feeding issues are psychiatric in origin due to odd behaviors (allegedly lying to , reporting he thinks he will soon). However, interview is exceedingly unremarkable and all mood/psych symptoms appear linked to his current debility regarding eating. Will perform additional medical workup (see unintentional weight loss problem) and monitor psychiatric symptoms/behavior for diagnostic clarity. PLAN - Continue olanzapine 15mg qHS for BPAD1 - Continue fluoxetine 40mg daily for BPAD1 - Continue trazodone 200mg qHS PRN for insomnia Unintentional weight loss 01/07/2025 Overview (01/09/2025): Assessment & Plan (01/16/2025 10:08 AM CDT): CSCPY/EGD largely negative. Will follow-up pathology for any results (eg., H. Pylori). Ate 100% of dinner and breakfast so appetite much improved. Weight stable (although decreased s/p bowel regimen). PLAN - GI consulted, appreciate recs - Bowel regimen: Senna-docusate BID PRN - RD consulted, following - Calorie counts/daily weights Assessment & Plan (01/15/2025 7:24 AM CDT): Needs stat Golytely and complete by 11am to get CSCPY today. If cannot obtain today, will arrange outpatient. PLAN - GI consulted, appreciate recs - 2L Golytely now - Anticipate CSCPY/EGD today - Bowel regimen: Miralax qday PRN -> Senna-docusate BID PRN - RD consulted, following - Calorie counts/daily weights Assessment & Plan (01/14/2025 2:00 PM CDT): Couldn't get EGD/CSCPY yesterday due to scheduling issues, canceled today because he didn't complete bowel prep. GI agreed to low-volume bowel prep (Moviprep). Will repeat pre-op labs, repeat bowel regimen tonight, and anticipate procedure tomorrow. PLAN - GI consulted, appreciate recs - Moviprep today @ 1700 and 0400 - Repeat CBC, BMP, PT-INR, Type and screen - CSCPY/EGD 01/15 - Bowel regimen: Miralax qday PRN -> Senna-docusate BID PRN - RD consulted, following - Calorie counts/daily weights Assessment & Plan (01/13/2025 8:20 AM CDT): Partially completed golyetly, plan for CSCPY/EGD today. PLAN - GI consulted, appreciate recs - CSCPY/EGD today - RD consulted, following - Calorie counts/daily weights Assessment & Plan (01/12/2025 9:49 AM CDT): GI anticipates colonoscopy 01/13, awaiting updated plan for bowel cleanout. Down 1 pound since admission. PLAN - GI consulted, appreciate recs - RD consulted, following - Calorie counts/daily weights Assessment & Plan (01/10/2025 10:46 AM CDT): Stooled yesterday, TSH WNL, CT PE/CTAP no evidence of esophageal/stomach problems, no imaging evidence of malignancy/mass. MOCA 19 but MMSE 27/30, low concern for neurocognitive contribution to poor eating. RD saw him, c/f severe malnutrition, recs appreciated. Will continue to encourage PO intake, resolve constipation, monitor symptoms. Curbsided GI who recommended formal consult and consideration for colonoscopy. PLAN - GI consulted, appreciate recs - RD consulted, following - Calorie counts/daily weights Assessment & Plan (01/09/2025 12:28 PM CDT): Per patient, reported 30 pound weight loss in last 3 weeks with 3-weeks constipation, early satiety, dysphagia (solids, not liquids). CT imaging noted incidental RLL PE and granulomas throughout spleen/lungs but no masses or other abnormalities. Historical possible exposure to chemicals as an [place] man but remote smoking history and non-drinker. Last reported EGD/colonoscopy 2021 both WNL. Top differential diagnosis at this time is occult GI malignancy due to early satiety, mechanical dysphagia, otherwise unprovoked PE and insidious onset. Alternatively, severe constipation may be contributing to early satiety and poor PO intake, although there is no clear cause for his constipation (will check TSH, calcium current normal reducing concern for sarcoidosis given granulomas noted on imaging). An underlying psychiatric disorder may be driving his intake issues (as suggested by family/outpatient providers) but he currently lacks clear mood/jimbo symptoms to suggest decompensation in his underlying BPAD diagnosis (which itself is unusual for a first episode in a 67yoM and raises questions about diagnostic clarity or a jimbo-mimicking condition). Will need to obtain additional information to help clarify what is going on. PLAN - Check TSH - RD consult - Calorie counts/daily weights - Consider additional medical workup. Constipation 01/07/2025 Assessment & Plan (01/16/2025 10:08 AM CDT): Plan per unintentional weight loss problem Assessment & Plan (01/15/2025 7:26 AM CDT): Plan per unintentional weight loss problem Assessment & Plan (01/14/2025 7:01 AM CDT): Completed Golytely bowel prep for EGD/CSCYP PLAN - Miralax 17gm BID PO for constipation - Senna-docusate BID PO for constipation - Further plan per unintentional weight loss problem. Assessment & Plan (01/13/2025 8:21 AM CDT): Completed Golytely bowel prep for EGD/CSCYP PLAN - Miralax 17gm BID PO for constipation - Senna-docusate BID PO for constipation - Further plan per unintentional weight loss problem. Assessment & Plan (01/12/2025 9:50 AM CDT): Continuing to stool but reporting tenesmus. PLAN - Miralax 17gm BID PO for constipation - Senna-docusate BID PO for constipation - Further plan per unintentional weight loss problem. Assessment & Plan (01/10/2025 9:26 AM CDT): Have several normal stools yesterday. Will continue regimen. PLAN - Miralax 17gm BID PO for constipation - Senna-docusate BID PO for constipation Assessment & Plan (01/09/2025 12:32 PM CDT): Reportedly x3 weeks without a BM. Significant stool burden noted on CT. PLAN - Miralax 17gm BID PO for constipation - Senna-docusate BID PO for constipation - Additional suppository/enema if needed - If persists despite medical therapy, can c/s gen surg for bowel disimpaction. Encounters Date Type Department Care Team Description 08/18/2025 Telephone [facility] [address] [place] [address] [address] [place] [address] Caitlin Geiger CNS 08/18/2025 Telephone [facility] [address] [place] [address] [address] [place] [address] Kavya Mcfadden Ish 08/15/2025 Orders Only [facility] [address] [place] [address] [address] [place] [address] Arian Bear MD Memory loss (Primary Dx); Parkinsonism, unspecified Parkinsonism type (HCC) 08/15/2025 Telephone [facility] [address] [place] [address] [address] [place] [address] Caitlin Geiger CNS 08/14/2025 Documentation [facility] [address] [place] [address] for [facility] 6th [place] [address] [place] [address] Arian Bear MD 08/12/2025 3:18 PM TWISTING PRESS OPERATOR - 08/12/2025 11:59 PM TWISTING PRESS OPERATOR Hospital Encounter [facility] [address] [place] [id number] Arian Bear MD Memory loss Discharge Disposition: Discharge to home or self care 07/17/2025 Telephone [facility] [address] [place] [address] [address] [place] [address] Caitlin Geiger CNS 07/17/2025 Orders Only [facility] [address] [facility] [address] [place] [address] Arian Bear MD Memory loss (Primary Dx) 07/16/2025 Documentation [facility] [address] [facility] 6th [place] [address] [place] [address] Arian Bear MD 07/16/2025 Documentation [facility] 6th [place] [address] [place] [address] Arian Bear MD 07/15/2025 Telephone [facility] First Floor [address] [place] [address] Caitlin Geiger, COMFORT FILLER 07/10/2025 Telephone [facility] [address] [place] [address] [address] [place] [address] Armani Berkowitz LCSW 07/08/2025 4:00 PM CDT Office Visit [facility] 6th [place] [address] [place] [address] Arian Bear MD Vascular dementia without behavioral disturbance (HCC) [F01.50] (Primary Dx); Memory loss 06/02/2025 Telephone [facility] Scheduling [address] [place] [id number] Arian Bear MD Scheduling Appointments from Last 3 Months Social History Tobacco Use Types Packs/Day Years Used Date Smoking Tobacco: Never Passive Smoke Exposure: Never Smokeless Tobacco: Never Tobacco Cessation:Counseling Given: No [facility] Utilities Answer Date Recorded In the past 12 months has [facility] [employer] gas, oil, or water [employer] threatened to shut off services in your home? No 01/09/2025 Humiliation, Afraid, Rape, and Kick questionnair e Answer Date Recorded Within the last year, have y ou been afraid of your partner or ex-partner? No 01/09/2025 Within the last year, have y ou been humiliated or emotionally abused in other ways by your partner or ex-partner? No Within the last year, have y ou been kicked, hit, slapped, or otherwise physically hurt by your partner or ex-partner? No 01/09/2025 Within the last year, have y ou been raped or forced to have any kind of sexual activity by your partner or ex-partner? No 01/09/2025 Social Connection and Isolation Panel Answer Date Recorded In a typical week, how many times do you talk on the phone with family, friends, or neighbors? More than three times a week 01/09/2025 How often do you get togethe r with friends or relatives? Once a week 01/09/2025 How often do you attend chur or religion services? More than 4 times per year 01/09/2025 Do you belong to any clubs o r organizations such as yazidism groups, unions, fraternal or athletic groups, or school groups? Yes 01/09/2025 How often do you attend meet ings of the clubs or organizations you belong to? More than 4 times per year 01/09/2025 Are you , , di vorced, , never , or living with a partner? 01/09/2025 AUDIT-C Answer Date Recorded Q1: How often do you have a drink containing alcohol? Never 01/15/2025 Q2: How many drinks containi ng alcohol do you have on a typical day when you are drinking? Patient does not drink Q3: How often do you have si x or more drinks on one occasion? Never 01/15/2025 Overall Financial Resource Strain (CARDIA) Answe r Date Recorded How hard is it for you to pa y for the very basics like food, housing, medical care, and heating? Not very hard 01/09/2025 PHQ-2 Answer Date Recorded PHQ-2 Total Score (If total score is 3 or more points, staff should administer the PHQ-9) 4 01/08/2025 [facility] - Occupational Stress Questionnaire Answer Date Recorded Do you feel stress - tense, restless, nervous, or anxious, or unable to sleep at night because your mind is troubled all the time - these days? Very much 01/09/2025 Exercise Vital Sign Answer Date Recorde d On average, how many days pe r week do you engage in moderate to strenuous exercise (like a brisk walk)? 0 days 01/09/2025 On average, how many minutes do you engage in exercise at this level? 0 min 01/09/2025 Hunger Vital Sign Answer Date Recorded Within the past 12 months, y ou worried that your food would run out before you got the money to buy more. Never true 01/10/20 25 Within the past 12 months, t he food you bought just didn't last and you didn't have money to get more. Never true 01/09/2025 PRAPARE - Transportation Answer Date Re corded In the past 12 months, has l ack of transportation kept you from medical appointments or from getting medications? No 12/2024 In the past 12 months, has l ack of transportation kept you from meetings, work, or from getting things needed for daily living? No 01/09/2025 PHQ-9 Answer Date Recorded PHQ-9 Total Score 12 01/08/2025 Housing Stability Vital Sign Answer Cheo e Recorded In the last 12 months, was t here a time when you were not able to pay the mortgage or rent on time? No 01/09/2025 In the past 12 months, how m any times have you moved where you were living? 0 01/09/2025 At any time in the past 12 m [facility], were you homeless or living in a custodial (including now)? No 01/09/2025 Personal Safety Answer Date Recorded Have you ever been in or are you currently in a harmful physical or emotional relationship or is someone making you feel afraid or unsafe? Denies 01/15/2025 Sex and Gender Information Value Date Recorded Sex Assigned at Not on file Legal Sex Male 7:09 PM TWISTING PRESS OPERATOR Gender Identity Not on file Sexual Orientation Not on file Last Filed Vital Signs Vital Sign Reading Time Taken Comments Blood Pressure 125/73 07/08/2025 3:28 PM CDT Pulse 53 07/08/2025 3:28 PM CDT Temperature 36.4 C (97.6 F) 01/16/2025 7:39 AM CDT Respiratory Rate 16 01/16/2025 7:39 AM CDT Oxygen Saturation 96% 01/16/2025 7:39 AM CDT Inhaled Oxygen Concentration - - Weight 76.4 kg (168 lb 6.4 oz) 07/08/2025 3:28 P M CDT Height 175.3 cm (5' 9) 07/08/2025 3:28 PM CDT Body Mass Index 24.87 07/08/2025 3:28 PM CDT Plan of Treatment Health Maintenance Due Date Last Done Comments Prostate Cancer Screening-PSA 1957 DTaP/Tdap/Td Vaccine (1 - Tdap) 1968 Hepatitis B Screening 1975 Zoster Vaccine (2 of 2) 07/05/2020 05/10/2020 Well Visit 65+ 2022 Depression Screening 01/07/2026 01/07/2025, 01/08/20 25 Fall Risk Assessment 01/16/2026 01/16/2025 Colon Cancer Screening-Colonoscopy 01/15/20352024 Pneumococcal vaccine 65+ Completed 11/18/2024 Hepatitis C Screening Completed 01/10/2025 Influenza Vaccine Completed 07/10/2025, , 08/18/2023, Additional history exists Procedures Procedure Name Priority Date/Time Associated Diagnosis Comments CT HEAD W WO CONTRAST Schedule Routine, Read Routine (OP Routine) 08/12/2025 4:17 PM TWISTING PRESS OPERATOR Memory loss COLONOSCOPY 01/15/2025 2:12 PM CDT HEPATITIS PANEL, ACUTE Routine 01/10/2025 9:53 AM CDT from Last 3 Months or Most Recently Relevant to Health Maintenance Results * CT Head W WO Contrast (08/12/2025 4:17 PM TWISTING PRESS OPERATOR) Anatomical Region Laterality Modality Head and Neck N/A Computed Tomogra phy 08/12/2025 5:24 PM TWISTING PRESS OPERATOR Impressions 08/12/2025 5:52 PM TWISTING PRESS OPERATOR No acute intracranial process. Dictated by: Allyssa Shannon MD The radiology attending physician has personally reviewed this study, and had reviewed and/or edited this written report and agrees with it. Electronically signed by: Jose Carlos Styles MD, PhD Narrative 08/12/2025 5:52 PM TWISTING PRESS OPERATOR EXAMINATION: CT head with contrast HISTORY: 69-year-old male with prior manic episode, memory loss TECHNIQUE: CT of the head was performed with images acquired from skull base to vertex with intravenous contrast. Contrast information: 70 mL Optiray-350 IV COMPARISON: CT head 01/14/2025 FINDINGS: There is no acute intracranial hemorrhage. Mild global cerebral volume loss with dilation of the sulci. Ventricles are of normal size and morphology. No mass effect or midline shift is present. The herbert-white matter differentiation is normal. Bilateral lens replacements. Unchanged punctate metallic density in the right anterior globe. The visualized portions of the mastoids are normal. Mucous retention cysts in bilateral maxillary sinuses, with mucosal thickening. Partial opacification of the ethmoid air cells. No fractures are identified. There is no abnormal contrast enhancement. Procedure Note Jose Carlos Styles MD PhD - 08/12/2025 EXAMINATION: CT head with contrast HISTORY: 69-year-old male with prior manic episode, memory loss TECHNIQUE: CT of the head was performed with images acquired from skull base to vertex with intravenous contrast. Contrast information: 70 mL Optiray-350 IV COMPARISON: CT head 01/14/2025 FINDINGS: There is no acute intracranial hemorrhage. Mild global cerebral volume loss with dilation of the sulci. Ventricles are of normal size and morphology. No mass effect or midline shift is present. The herbert-white matter differentiation is normal. Bilateral lens replacements. Unchanged punctate metallic density in the right anterior globe. The visualized portions of the mastoids are normal. Mucous retention cysts in bilateral maxillary sinuses, with mucosal thickening. Partial opacification of the ethmoid air cells. No fractures are identified. There is no abnormal contrast enhancement. IMPRESSION: No acute intracranial process. Dictated by: Allyssa Shannon MD The radiology attending physician has personally reviewed this study, and had reviewed and/or edited this written report and agrees with it. Electronically signed by: Jose Carlos Styles MD, PhD Arian Bear MD IMG CT PROCEDURES Final Result * Colonoscopy (01/15/2025 2:12 PM CDT) Anatomical Region Laterality Modality Other Narrative Procedure Note Sarah Harrison, DO - 01/15/2025 2:12 PM CDT [facility] Patient Name: Bowen Davila Procedure Date: 01/15/2025 2:12 PM Date of : 1955 Admit Type: Inpatient Age: 69 Gender: Male Attending MD: Sarah Harrison M.D. Room: [facility] ENDOSCOPY Note Status: Finalized Procedure: Colonoscopy Indications: Weight loss Referring MD: Providers: Sarah Harrison M.D., Jagdeep Cornell M.D. Medicines: Monitored Anesthesia Care Complications: No immediate complications. Estimated Blood Loss: Estimated blood loss was minimal. Procedure: Pre-Anesthesia Assessment: - The risks and benefits of the procedure and the sedation options and risks were discussed with the patient. All questions were answered and informed consent was obtained. - Immediately prior to administration ofmedications, the patient was re-assessed for adequacy to receive sedatives. The benefits, risks and alternatives of theprocedure and sedation were discussed and informed consentwas obtained. All questions were answered. Please referto the signed informed consent document in the medical record. The scope was passed under direct vision.The CF [id number] endoscope was introduced through the anus and advanced to the the cecum, identifiedby appendiceal orifice and ileocecal valve. The colonoscopy was performed without difficulty. The patient tolerated the procedure well. The qualityof the bowel preparation was good. The quality of the bowel preparation was evaluated using the BBPS([place] Bowel Preparation Scale) with scores of: RightColon = 3, Transverse Colon = 3 and Left Colon = 3 (entire mucosa seen well with no residual staining, small fragments of stool or opaque liquid). The totalBBPS score equals 9. The bowel preparation used was GoLYTELY via split dose instruction. Bowel prep was administered using a single dose. Findings: A 2 mm polyp was found in the ascending colon. The polyp was sessile. The polyp was removed with a cold snare. Resection and retrieval were complete. Two sessile polyps were found in the transverse colon. The polypswere 3 to 4 mm in size. These polyps were removed with a cold snare.Resection and retrieval were complete. External hemorrhoids were found during retroflexion. The hemorrhoids were small. Impression: - One 2 mm polyp in the ascending colon, removedwith a cold snare. Resected and retrieved. - Two 3 to 4 mm polyps in the transverse colon, removed with a cold snare. Resected andretrieved. - External hemorrhoids. Recommendation: - [facility] - Resume previous diet. - Await pathology results. - Continue present medications. - Further recommendations per GI consult team Attending Participation: I was present and participated during the entire procedure, including non-cabello portions. Electronically signed by Sarah Harrison MD Sarah Harrison M.D. 01/15/2025 3:04:08 PM Number of Addenda: 0 Note Initiated On: 01/15/2025 2:12 PM us Sarah Harrison DO ENDOSCOPY PROCEDURES Final Result * Hepatitis panel, acute Blood (01/10/2025 9:53 AM CDT) Hep A IgM Nonreactive Nonreactive Hep B core IgM Nonreactive Nonreactive [facility] Hep C Ab Nonreactive Nonreactive [facility] Comment:Antibodies to HCV no t detected. Does NOT exclude the possibility of recent exposure to HCV. Current interpretive data was last revised on 22 HepBsAg Nonreactive Nonreactive [facility] Blood 01/10/2025 9:5 3 AM CDT 01/10/2025 10:39 AM CDT Poli Villa MD LAB MICROBIOLOGY - NERAL ORDERABLES Final Result [facility] Department [place] [address] from Last 3 Months or Most Recently Relevant to Health Maintenance Insurance [facility] MEDICARE ADVANTAGE [facility] Address: [address] [address] [facility] MEDICARE ADVANTAGE [facility] Address: [facility] [address] [place] [address] Advance Directives For more information, please contact: [phone] * Full Code (Latest Code Status on File) Date Activated Date Inactivated Comments 01/08/2025 4:35 PM 01/16/2025 7:01 PM 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
--- NOTE | 2025-09-15 17:38 | WPDSLEEPSTUD ---
Sleep Study Date of Study: 08/20/25 Ordering Provider: Jonathan Blanchard, Interpreting Physician: Saira Mcnair MD Sleep Study Type: Polysomnogram Height: 1.85 m Weight: 74.843 kg Body Mass Index: 21.7 Neck Circumference (inches): 15 [place]: 15 Reason for Sleep Study Hypersomnolence; he did not meet criteria early enough in the night to proceed with a split night study so this was conducted as a full night basic polysomnogram. Sleep History Bowen Davila is a 70-year-old man with excessive daytime sleepiness. He never awakens from sleep feeling short of breath. He never wakes at night with heartburn, belching or coughing.??He occasionally snores, never snores loudly enough that others complain. He occasionally has trouble sleeping when he has a cold. He never has breathing problems at night witnessed by others. He never sweats excessively at night. He never notices his heart pounding or beating irregularly during the night. He frequently falls asleep during the day. He never falls asleep while driving. He never experiences loss of muscle tone with strong emotion. He never has daytime difficulty at work due to excessive sleepiness. He never feels paralyzed on waking or falling asleep. He frequently experiences vivid dreams upon waking or falling asleep. He never feels afraid of going to sleep. He never has nightmares. He never recalls his dreams. He never has thoughts racing through his mind. He occasionally feels sad or depressed. He never feels anxiety. He occasionally notices parts of his body jerk. He rarely kicks during the night. He occasionally feels crawling or aching feelings in his legs. He never feels leg pain at night. He never has morning jaw pain, occasionally grinds his teeth at night. He occasionally feels bothered by pain during the day, never awakened by pain during the night. He never wakes up feeling stiff in the morning, and he occasionally wakes feeling sore or achy. He never awakens with pain in his neck, spine, or joints. He takes sedatives, he has insomnia and bowel disturbances. He feels depressed. Normal bedtime is 12 midnight, falling asleep within a few hours, waking 3 or 4 times in the speech therapist early intervention hours. He goes to the bathroom at night and sometimes has difficulty returning to sleep. Wake time is between 11:00 a.m. and 12 noon. He typically gets 5 hours of sleep per night even though he is in bed for possibly 11-12 hours. On weekends, bedtime is still around midnight, wake time is 8:30 a.m. for a presybeterian service. He takes naps in the day, and he may feel refreshed after a 10-15 minute nap. He is usually drowsy for 1 hour after waking. Habits:??Tobacco: Former smoker, 1 pack per day around his 20s. Caffeine: None Alcohol: None Recreational substances: None PMF Past Medical History Medical History Upper abdominal pain Nausea Elevated liver enzymes Cholelithiasis with acute on chronic cholecystitis Pre-diabetes No longer on medication after weight loss. Gastritis Anxiety Hypertension No longer on medication after weight loss. Hyperlipidemia Surgical History Surgical History Hx laparoscopic cholecystectomy 08/18/22 History of lumbar surgery Status post bilateral LASIK surgery Family History Family History Father Acute myocardial infarction Mother Diabetes mellitus Social History Social History Social History: Surrogate medical decision maker: Enedina Davila, spouse. Code status: Full code. Years smoked: 2 Smoking status: Never smoker Tobacco type: cigarettes Alcohol intake: never Substance use: never Substance use type: does not use Lack of Transportation: No Lack of Food: Never True Current Housing: I Have Housing Concerned About Future Housing: No Difficulty Paying Gas/Electric Bills: No Difficulty Paying for Meds: No Currently Unemployed: No Education: High School Diploma/GED Difficulty w/ Childcare or Family Care: No Living arrangements: with family Occupation/Education: retired Spiritual care concerns: No Medications Home Medications ?Medication ?Instructions ?Recorded ?Confirmed ?Type simvastatin 40 mg tablet 40 mg PO DAILY 10/14/21 11/21/22 History jxajabyyjghe-dtw-wxlbr acid-vit 1 tablet PO DAILY 11/18/21 11/21/22 History K-lycop 400 mcg-20 mcg-370 mcg tablet (One-A-Day Men's 50 Plus (with vitamin K)) omega-3 fatty acids 1 cap PO DAILY 11/18/21 11/21/22 History amino ac-vit [id number]-Vn-jtqxgzvi-hb9 1 tablet PO 1XD 05/19/22 11/21/22 History tablet escitalopram oxalate 5 mg tablet 20 mg PO DAILY 05/19/22 11/21/22 History hydroxyzine HCl 25 mg tablet 25 mg PO HS 11/09/22 11/21/22 History quetiapine 50 mg tablet (Seroquel) 50 mg PO HS #30 tabs 12/13/22 Rx Sleep Procedure A full night polysomnogram using the [employer] multi-channel system recorded the standard physiologic parameters including EEG, EOG, submentalis EMG, anterior tibialis EMG, EKG, body position, nasal and oral airflow using nasal pressure sensor and thermistor. Respiratory parameters of chest and abdominal movements were recorded with Respiratory Inductance Plethysmography belts. Oxygen saturation was recorded by pulse oximetry. Video monitoring was also performed. Sleep stages, periodic limb movements, and EEG arousals were scored in 30 second epochs according to the criteria of the AASM Scoring Manual. The Apnea-Hypopnea Index was calculated using CMS guidelines for definition of hypopnea while scoring respiratory events. The patient and his were brought to the sleep lab by their grand children. The told the staff that the patient may have Alzheimer's or Lewy body dementia, he is still being tested. His was tired and went to bed in room 3 shortly after arriving at the sleep lab. The patient was hooked up with a very is leads. However he was not able to follow directions for the bio calibrations. Bio calibrations were not performed at the beginning of the study. He did not take a sleep aid at the beginning of the test. He did not meet criteria early enough in the night to qualify for split night study so this was conducted as a full night polysomnogram. He was awake until epoch 477. He has small amount of REM and this was in the left lateral position. He had no supine REM. Sleep Architecture The total recording time was 430.4 minutes. The total sleep time was 184.0 minutes. Sleep latency was 218.2 minutes. REM latency was 65.0 minutes. Sleep efficiency was 42.7%. The patient had 16 awakenings for an awakening index of 5.2. Wake after sleep onset time was 28.0 minutes. The patient spent 12.0 minutes, 6.5% of total sleep time in Stage N1. The patient spent 148.0 minutes, 80.4% in Stage N2. The patient spent 8.0 minutes, 4.3% in Stage N3. The patient spent 16.0 minutes, 8.7% in Stage REM sleep. Respiratory Analysis The patient had 24 hypopneas, no obstructive apneas, 2 mixed apneas, and no central apneas for an overall Apnea Hypopnea Index of 8.5. The REM Apnea Hypopnea Index was 0. The NREM Apnea Hypopnea Index was 9.3. The patient had a Central Apnea Hypopnea Index of 0. The supine apnea-hypopnea index was 17.8, the nonsupine apnea-hypopnea index was 3.1. He has a strong positional component and I would advise the patient not sleep on his back. There were no Respiratory Effort Related Arousals. The Respiratory Disturbance Index is 13.0 events per hour. There was no evidence of Jonathan-Bond Respirations. Arousals There were 60 total arousals for an arousal index of 19.6. There were 34 spontaneous arousals for an index of 11.1. There were 9 arousals due to respiratory events for an index of 2.9. There were 5 arousals due to periodic limb movements for an index of 1.6. There were 12 arousals due to isolated limb movements for an index of 3.9. Periodic Limb Movements The patient had 33 isolated limb movements with an index of 10.8. The patient had 100 periodic limb movements with an index of 32.6. Patient had a total of 133 limb movements with a total limb movement index of 43.4. Oximetry Data The patient had an average oxygen saturation of 91.7% in sleep with a minimum oxygen saturation of 87% and a maximum oxygen saturation of 97%. The patient had 26 oxygen desaturations that were 4% or greater resulting in an Oxygen Desaturation Index of 8.5. The patient spent 0.6 minutes, 0.2% of total sleep time with an oxygen saturation below 88%. Snoring Profile Snoring was mild during the night. Cardiac Profile The EKG showed normal sinus rhythm, average pulse rate of 51 bpm with a minimum pulse of rate of 44 bpm and a maximum pulse rate of 72 bpm. He had few PVCs and couplets. No arrhythmias noted. EEG Profile Unremarkable, no evidence of seizures. Assessment and Plan Assessment and Plan (1) Obstructive sleep apnea: Code(s): G47.33 - Obstructive sleep apnea (adult) (pediatric) Status: Acute Assessment and Plan: August 20, 2025 This basic nocturnal polysomnogram shows mild obstructive sleep apnea, the overall apnea-hypopnea index is 8.5 with desaturation 87%, study limited by a prolonged sleep latency, patient did not fall asleep until 218 minutes after the study started. His supine apnea-hypopnea index is significantly higher, 17.8 compared to his nonsupine apnea-hypopnea index of 3.1. He should avoid sleeping on his back to minimize obstructive events and hypoxemia. He had only 184 minutes of sleep during the night. He likely took a nap on the day of testing. He did not take a sleep aid at the beginning of the study. Sleep aid is recommended to be available for patients to use, if needed, to initiate and maintain sleep. He did not qualify for CPAP titration because he did not have enough sleep early enough in the night to meet criteria. He has a medical comorbidity of depression. With this comorbidity, and mild sleep apnea, he is a candidate for PAP therapy. He has cognitive issues, he has bipolar disorder and is being evaluated for Alzheimer's or Lewy body dementia. The Neurology Department at [facility] recommended a sleep study in the past but the patient did not proceed until having this study. Ideally, the patient should have a CPAP titration in the sleep lab to assure that he is properly fitted and that he is on a pressure which is effective. He has some cognitive issues, he has a poor sleep schedule and I think handing him an auto PAP will not achieve anything beneficial for him. If autoPAP is considered a viable option, he should be prescribed a Resmed AirSense 11 AutoPAP 5-15 cm H2O, CPAP mask/filters/tubing and humidifier chamber. This should be used with all episodes of sleep. Compliance should be reviewed within 31-90 days of starting therapy for usage greater than 4 hours per night greater than 70% of the nights. The patient should be asked about symptoms such as excessive daytime sleepiness, quality of sleep, decreased nocturia, increased mental functioning such as memory, mood, and concentration. If the decision is made for the patient have a PAP titration in the sleep lab, he needs to adjust his sleep schedule, wake up earlier between 8 and 9:00 a.m., limit daytime naps, have no naps on the day of the CPAP titration and he should have a sleeping pill available if needed to initiate and maintain sleep on the day of the titration. During the study he was awake for over 3 hours during the 1st portion of the night and did not meet criteria early enough in the night to proceed with a titration. There is concern that RLS or leg movements may be disrupting his sleep. His sleep questionnaire does not indicate that he has specific problems with uncomfortable feelings in his legs at night or kicking however this was an issue brought out by the neurologist and I see it in his primary care note. His periodic limb movement arousal index is 1.6, isolated limb movement arousal index is 3.9, overall the arousals are low. His limb movement index is 43.4. His periodic limb movement index is 33.6, isolated limb movement index is 10.8. He does not have a ferritin level in our system. Consider checking ferritin and if the ferritin level is less than 75, treating with iron to improve ferritin to greater than 75 to see if this improves limb movements and sleep continuity. (2) Inadequate sleep hygiene: Code(s): Z72.821 - Inadequate sleep hygiene Status: Acute Assessment and Plan: The patient strongly needs a better sleep schedule. He has poor sleep hygiene. He goes to bed between 11:00 p.m. and 12 midnight, he is awake for hours, sleeps a total of 5 hour somewhere during the night and gets out of the bed between 11:00 a.m. and 12 noon. He needs sleep restriction, fewer naps. He needs activity during the day. Please see sleep hygiene information below. Recommendations to improve sleep quality include: ? Practice a bedtime routine and keep the same sleep schedule including bedtime and wake up time, even on the weekends. Consistency makes it much easier to fall asleep and wake easily. ? If you have trouble sleeping at night, avoid naps, especially in the late afternoon. However, short naps lasting approximately 20 minutes can help alleviate daytime fatigue, sleepiness, and even provide cognitive benefit. Naps longer than 30 minutes can cause sleep inertia, a period of reduced alertness and cognitive performance after waking. ? Exercise daily. ? Maintain a sleep environment conducive to sleep. The bedroom should be comfortably cool. In population studies, nocturnal environmental light and noise significantly impact sleep quality and quantity. Use of blackout curtains, ear plugs, or sound machines may help promote an optimal sleep environment for individuals with sleep disruptions due to environmental stimuli. ? Sleep on a comfortable mattress and pillows. ? Regular bright light exposure in the mornings may help to maximize alertness and maintain a regular circadian rhythm. Studies in extreme latitudes where sunlight is minimal in the winter have found that an hour of exposure to white light in the morning helped subjects go to sleep earlier and wake earlier. Exposure to blue light in the morning may have more robust effects on the stability of the circadian rhythm and has been shown to improve daytime fatigue and sleepiness. ? Avoid cigarettes, caffeine, and heavy meals in the evening. While alcohol use does seem to reduce the time it takes to fall asleep, studies have reported that evening alcohol intake can cause more waking time or light sleep in the second half of the night and reduce self-reported sleep quality. Evening nicotine is associated with lower sleep efficiency and more awake time during the night. ? Wind down with quiet activities that may promote sleep, such as reading with a dim light. Avoid use of electronics at least 30 minutes before habitual bedtime and in the middle of the night if nocturnal awakenings occur. The blue light emitted from computer screens and hand-held devices can suppress natural melatonin production, resulting in difficulty falling asleep; however, the exact duration of use and intensity of lighting that cause this effect are variable in the literature. ? If you cannot sleep, do not look at a clock. Go into another room and do something relaxing until you feel drowsy enough to fall asleep again. Then return to bed. Data The data obtained during this sleep study is adequate for interpretation. Certification This sleep study has been reviewed by a board certified sleep medicine physician.
[2025-09-15 18:12] VITALS: BMI 21.7
== END 2025-08-21 06:53 | disposition home or self-care (01) ==
PROVIDERS: PCP Internal Medicine; Visit Provider Internal Medicine
DX: G47.33 Obstructive sleep apnea (adult) (pediatric) (principal); Z72.821 Inadequate sleep hygiene
CPT/HCPCS: 95810